=== PATIENT | male | born 1955 | race African-American/Black ===

== ENCOUNTER 2017-01-26 08:19 | Emergency (ER) | payer OTHER ==
[~2017-01-26] VITALS: Ht 177.8 cm; Wt 86.2 kg
[2017-01-26 08:28] VITALS: BP 155/101
--- NOTE | 2017-01-26 09:07 | PHYS DOC ---
Past Medical History Past Medical History: Hypertension Past Surgical History: No Surgical History Alcohol Use: Heavy Drug Use: Marijuana Adult General Chief Complaint Chief Complaint: LOWER EXT PAIN HPI HPI Patient is a 61 year old male with history of hypertension, smoking, who presents with mild posterior thigh pain for months, patient states the pain is intermittent worse on ambulation, he states the pain improves when he is not moving. Patient denies any known injury. Patient states he would like a note for work because he missed work today. Review of Systems Review of Systems Constitutional: Denies fever or chills [] Eyes: Denies change in visual acuity, redness, or eye pain [] HENT: Denies nasal congestion or sore throat [] Respiratory: Denies cough or shortness of breath [] Cardiovascular: No additional information not addressed in HPI [] GI: Denies abdominal pain, nausea, vomiting, bloody stools or diarrhea [] : Denies dysuria or hematuria [] Musculoskeletal: thigh pain bilaterally Integument: Denies rash or skin lesions [] Neurologic: Denies headache, focal weakness or sensory changes [] Endocrine: Denies polyuria or polydipsia [] Allergies Allergies Allergies Coded Allergies Type Severity Reaction Last Updated Verified No Known Drug Allergies 04/03/15 No Physical Exam Physical Exam Constitutional: Well developed, well nourished, no acute distress, non-toxic appearance. [] HENT: Normocephalic, atraumatic, bilateral external ears normal, oropharynx moist, no oral exudates, nose normal. [] Eyes: PERRLA, EOMI, conjunctiva normal, no discharge. [] Neck: Normal range of motion, no tenderness, supple, no stridor. [] Cardiovascular:Heart rate regular rhythm, no murmur [] Lungs & Thorax: Bilateral breath sounds clear to auscultation [] Abdomen: Bowel sounds normal, soft, no tenderness, no masses, no pulsatile masses. [] Skin: Warm, dry, no erythema, no rash. [] Back: No tenderness, no CVA tenderness. [] Extremities: No tenderness, no cyanosis, no clubbing, ROM intact, no edema. Negative Homans sign to bilateral lower extremities Neurologic: Alert and oriented X 3, normal motor function, normal sensory function, no focal deficits noted. [] Psychologic: Affect normal, judgement normal, mood normal. [] Current Patient Data Vital Signs Vital Signs Date Time Temp Pulse Resp B/P (MAP) Pulse Ox O2 Delivery O2 Flow Rate FiO2 01/26/17 08:28 98.5 77 18 98 Room Air 98.5 EKG EKG [] Radiology/Procedures Radiology/Procedures [] Course & Med Decision Making Course & Med Decision Making Pertinent Labs and Imaging studies reviewed. (See chart for details) Patient is in the ED with complaints of bilateral thigh pain worse on ambulation 4 months. Patient states the pain improves when he is not moving. Patient has history of smoking. He also has history of hypertension. Blood pressure was 155/101. He has not taken his medicine today. He does not have a PCP either. He is also requesting a note for work, which we provided. Patient's symptoms are consistent with peripheral vascular disease. I recommended following with a doctor from the list provided, we encouraged him to consider smoking cessation. He was discharged with Ultram and gabapentin. He was provided return precautions and discharged in stable condition. Dragon Disclaimer Dragon Disclaimer This electronic medical record was generated, in whole or in part, using a voice recognition dictation system. Departure Departure Impression: Primary Impression: High blood pressure Additional Impressions: Smoking addiction Peripheral vascular disease Disposition: HOME, SELF-CARE Condition: STABLE Referrals: UNKNOWN PCP NAME (PCP) follow with a doctor from the list provided as soon as you can Patient Instructions: Hypertension, Peripheral Vascular Disease Additional Instructions: You were seen for bilateral thigh pain suspicious of peripheral vascular disease. We highly recommend you follow-up with a doctor from the list provided or your own primary care doctor as soon as possible. Take the prescribed medicine as needed. Come back to the ED symptoms worsen. Scripts Gabapentin (GABAPENTIN) 300 Mg Capsule 300 MG PO TID, #30 CAP Prov: HERIBERTO HARE APRN 01/26/17 Tramadol Hcl (ULTRAM) 50 Mg Tablet 1 TAB PO Q6HRS, #30 TAB Prov: HERIBERTO HARE APRN 01/26/17 Problem Qualifiers Primary Impression: High blood pressure Hypertension type: unspecified Qualified Codes: I10 - Essential (primary) hypertension HERIBERTO HARE APRN Jan 26, 2017 09:07
[2017-01-26] MEDS ORDERED: GABA-586 PO (09:12)
[2017-01-26] MEDS ORDERED: TRAM-48 PO (09:12)
== END 2017-01-26 09:23 | disposition home or self-care (01) ==
LOC: ER 08:19
DX: I10 Essential (primary) hypertension (principal); F17.210 Nicotine dependence, cigarettes, uncomplicated; I73.9 Peripheral vascular disease, unspecified; F12.10 Cannabis abuse, uncomplicated
CPT/HCPCS: 99283

== ENCOUNTER → 2017-02-02 | Outpatient (CLI) | payer OTHER ==
[2017-01-26 08:28] VITALS: BP 155/101
[~2017-02-02] MED LIST: ALPR0.5T PO; CYCL10TA2 PO; DOXA4TAB3 PO; FLUO10CA13 PO; GABA-586 PO; HYDR-2758 PO; LISI40TA PO; METO100T2; OMEP20CA9; TRAM-48 PO
--- NOTE | 2017-02-02 15:52 | KCIC ---
INDICATION: Low back pain with radiculopathy. Stiffness and instability. TECHNIQUE: Sagittal T1, sagittal T2, sagittal STIR, axial T1, and axial T2 sequences are provided. No comparison is available. FINDINGS: There is no malalignment. There is fatty replacement of the endplates at several levels. There is no worrisome marrow lesion. There is disc desiccation greatest at T11-T12 and L4-L5. There is mild narrowing of disc height at L4-L5 and L5-S1. Conus medullaris is normal in signal intensity and in position. Subcutaneous edema is noted. The numbering system assumes 5 lumbar type vertebral bodies. Findings by individual level are as follows: T11-T12: Disc bulge and facet hypertrophy are noted with mild foraminal narrowing. T12-L1: There is facet hypertrophy without canal or foraminal compromise. L1-L2: This is the first level included entirely in the axial plane. There is a minimal disc bulge and facet hypertrophy without canal or foraminal compromise. L2-L3: There is a minimal disc bulge and mild facet and ligamentum flavum hypertrophy without canal or foraminal compromise. L3-L4: There is a mild disc bulge and moderate facet hypertrophy. There is also ligamentum flavum hypertrophy. There is minimal canal stenosis. There is [id number] bilateral foraminal narrowing. L4-L5: In addition to a diffuse disc bulge there is a right paracentral extrusion-type herniation minimally migrating superiorly measuring 12 mm craniocaudal, 9 mm transverse, and 4 mm AP. There is facet and ligamentum flavum hypertrophy. There is severe canal stenosis, midline AP diameter of the thecal sac narrowed to 4-5 mm. There is no CSF surrounding the nerve roots at this level. There is mild lateral recess narrowing. There is [id number] bilateral foraminal narrowing. L5-S1: Disc bulge and facet hypertrophy are noted with moderate foraminal narrowing. There is probably a synovial cyst on the right measuring 7 mm. IMPRESSION: Degenerative disc disease and facet and ligamentum flavum hypertrophy are greatest at L4-L5. Electronically signed by: Jas Liao MD (02/02/2017 3:49 PM) [facility]
== END | disposition home or self-care (01) ==
LOC: KCIC MRI 14:34
PROVIDERS: ATTEND Family Medicine
DX: M48.06 Spinal stenosis, lumbar region (principal); M51.16 Intervertebral disc disorders with radiculopathy, lumbar region; M24.28 Disorder of ligament, vertebrae; M53.86 Other specified dorsopathies, lumbar region
CPT/HCPCS: 72148

== ENCOUNTER → 2017-02-16 | Outpatient (CLI) | payer OTHER ==
[2017-01-26 08:28] VITALS: BP 155/101
[~2017-02-16] MED LIST changes: +AMLO5TAB2 PO
--- NOTE | 2017-02-16 20:45 | PAIN ---
DATE OF SERVICE: 02/16/2017 INITIAL CONSULTATION FOR PAIN CLINIC CHIEF COMPLAINT: Low back, bilateral lower extremity pain. HISTORY OF PRESENT ILLNESS: This is a 61-year-old male who presents with history of pain in the low back, bilateral lower extremities for several weeks, worse over the past 2 weeks, but then prior to 2 weeks, the pain began to resolve and completely dissipated ____ 2 days ago. The patient reports no specific treatment that he has done or other modalities. He has been trying to rest his back a bit and stay on his feet for some time and the pain has resolved completely. The patient reports 0 pain whatsoever today. The patient reports that 2 weeks ago; however, the pain was very significant and was radiating to both the posterior and lateral thighs, anterior thighs, posterior legs to the knees and sometimes in to the calf, but now is much better. The patient reports that occasionally in the morning, he still has a little bit of this pain over the past week, but it lasts only very briefly and then it is gone. The patient reports that he did get a steroid ____ from his primary care physician and this seems to have helped the pain significantly and this was about 2 weeks ago by his estimation. The patient reports otherwise no new motor or sensory deficits, no bowel or bladder incontinence or other complaints. When the pain was present, it was a significant radiating, dull, aching and shooting as well as some burning pain in the legs also. The patient did have an MRI scan of the lumbar spine dated 02/02/2017 showing degenerative disk disease and facet and ligamentum flavum hypertrophy, greatest at L4-L5 with a right paracentral extrusion type herniation, migrates superiorly measuring 12 x 9 x 4 mm and severe canal stenosis, again worse on the right than the left. PAST MEDICAL HISTORY: Significant for the hypertension, cigarette smoking, arthritis, gastritis, esophagitis and reflux. PAST SURGICAL HISTORY: No previous surgeries. CURRENT MEDICATIONS: Include doxazosin, lisinopril, Xanax, Prozac, hydrocodone, cyclobenzaprine, omeprazole, metoprolol and amlodipine. ALLERGIES: The patient has no known drug allergies. FAMILY HISTORY: Significant for no major medical problems or conditions that he is aware of. SOCIAL HISTORY: The patient drinks about 2 beers a day on average and smokes about half a pack of cigarettes per day as well and has been for about 20 years with no plans to quit at this time. 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 He is single and lives on his own. REVIEW OF SYSTEMS: The patient's review of systems is positive for those items mentioned in the history of present illness. All systems reviewed and otherwise negative. It is complete, full and well documented on the patient's chart. PHYSICAL EXAMINATION: VITAL SIGNS: The patient's blood pressure is 123/90, pulse is 69, respirations 18, temperature 98.5 degrees Fahrenheit. Height is 5 feet 11 inches and weighs 188 pounds. GENERAL: The patient is awake, alert, oriented, appropriate, very pleasant demeanor. HEENT: Head shows normocephalic, atraumatic. Extraocular movements are intact, symmetrical. Oral cavity, mucous membranes are moist and pink. Dentition is intact. NECK: Shows anterior throat is supple without palpable lymphadenopathy noted. Swallow reflex is symmetrical. CHEST: Shows normal on inspection. Breath sounds are clear to auscultation bilaterally. HEART: Shows S1 and S2 clear. No murmurs are auscultated. ABDOMEN: Soft, nontender, nondistended. No palpable organomegaly. No rebound or guarding demonstrated. BACK: The patient's back shows spine grossly in the midline with normal appearing thoracic kyphosis and lumbar lordotic curvatures. The patient's lumbar paraspinous muscle shows symmetrical with inspection and palpation shows some very mild tenderness to palpation bilaterally, but only with deeper palpation. Full rotational motion of the lumbar spine, both laterally greater than 10 degrees right and left as well as extension greater than 10 degrees, forward flexion 45 degrees without pain reported. No tenderness over the spinous processes, sacrum or sacroiliac regions. Lower extremities show deep tendon reflexes at 2+ in the patellar, 1+ tendo calcaneus tendons. Motor exam is strong with 5/5 dorsiflexion, extension, quadriceps and hamstring flexion and are equal. Peripheral pulses are 2+ posterior tibial and dorsalis pedis pulses. No peripheral edema is noted. No clubbing, no cyanosis. Lower extremities are warm and dry to touch, equal in color and appearance. Straight leg raising noted to be negative for any reproduction of radicular symptoms bilaterally as is Gaenslen's and Federico's maneuvers negative bilaterally as well. The patient is able to stand, stand on his toes without difficulty or loss of balance, able to heel toe walk without difficulty and walks with normal appearing gait, not using any assistive devices such as canes or walkers to ambulate. IMPRESSION: 1. This is a 61-year-old male with recent history of low back, bilateral lower extremity pain in a radicular fashion, now resolved over the past 2 weeks or so following a steroid taper pack. 2. MRI scan of lumbar spine as noted. 3. Hypertension. 4. Arthritis. 5. Cigarette smoking. PLAN: Options were discussed with the patient including conservative medical management, physical therapy and interventional techniques. We will hold on any interventions at this time. I have encouraged him to increase his activity as tolerated, also do some stretching and strengthening exercises, which we discussed to help with the back and core maneuvers as well and encouraged him to decrease or quit smoking as well. The patient will follow up on as needed basis at this time. Also discussed if the pain does return, to contact the office and we will schedule him back at that time. KVNG ALBRECHT MD DR: LANETTE/solitario JOB#: [id number] / [id number] AISHA Hernandez DO
== END | disposition home or self-care (01) ==
LOC: PNCL 13:08
PROVIDERS: ATTEND Anesthesiology
DX: M48.06 Spinal stenosis, lumbar region (principal); M79.662 Pain in left lower leg; M79.661 Pain in right lower leg; I10 Essential (primary) hypertension; F17.210 Nicotine dependence, cigarettes, uncomplicated
CPT/HCPCS: 99214

== ENCOUNTER → 2017-10-03 | Outpatient (CLI) | payer BC | END | disposition home or self-care (01) | LOC: US 14:51 | DX: M79.89 Other specified soft tissue disorders (principal) | CPT/HCPCS: 93971 ==

== ENCOUNTER 2020-01-01 15:07 | Inpatient (IN) | payer OTHER, SELFPAY ==
[~2020-01-01] VITALS: Ht 175.3 cm; Wt 82.3 kg
[~2020-01-01 15:07] MED LIST changes: +AMLO5TAB10 PO; -AMLO5TAB2 PO; +Folic Acid PO; -GABA-586 PO; +GABA300C18 PO; -HYDR-2758 PO; +HYDR-2761 PO; +LISI-130 PO; -LISI40TA PO; -METO100T2; +METO100T7; +METO100T7 PO; +MULT1TAB90 PO; +OMEP20CA16; -OMEP20CA9
[2020-01-01] MEDS ORDERED: IV NORMAL SALINE 1000ML BAG 1,000 ML IV SCH (15:18)
--- NOTE | 2020-01-01 15:42 | PHYS DOC ---
Past Medical History Past Medical History: Hypertension Past Surgical History: No Surgical History Smoking Status: Current Every Day Smoker Alcohol Use: Heavy Drug Use: Marijuana General Adult EDM: Chief Complaint: SHORTNESS OF BREATH HPI: HPI: Patient is a 64 year old male who presents with sent over by [facility] with a increased shortness of breath, body aches, diaphoretic and fever that is increased over the last 2 weeks. The nurse practitioner Pilar also told me that he had a low blood pressure in the 80s and had a near syncopal episode in the clinic today. Patient does have a history of alcohol abuse but states that he has not had any alcohol for the last 3 days. Patient states that he is nauseated at times and will heaves but nothing comes up. He is ambulatory with a steady gait. No respiratory distress. Patient states that he has no chest pain and at this time has no shortness of breath. He is afebrile here in the ED. Patient is other history is he is a smoker and has hypertension. Patient denies chest pain, abdominal pain, vomiting, diarrhea, cough, dizziness, headache, vision changes, numbness or tingling, LOC, focal weakness. Review of Systems: Review of Systems: Constitutional: fever or chills. [] Eyes: Denies change in visual acuity. [] HENT: Denies nasal congestion or sore throat. [] Respiratory: Denies cough. +shortness of breath. [] Cardiovascular: Denies chest pain or edema. [] GI: Denies abdominal pain. + nausea, denies vomiting, bloody stools or diarrhea. [] : Denies dysuria. [] Musculoskeletal: Denies back pain or joint pain. Generalized body aches [] Integument: Denies rash. [] Neurologic: Denies headache, focal weakness or sensory changes. Near syncopal episode today [] Endocrine: Denies polyuria or polydipsia. [] Lymphatic: Denies swollen glands. [] Psychiatric: Denies depression or anxiety. [] Heart Score: HEART Score for Chest Pain: HEART Score for Chest Pain Response (Comments) Value History Slighlty/Non-Suspicious 0 ECG Normal 0 Age >45 - < 65 1 Risk Factors 1 or 2 Risk Factors 1 Troponin < Normal Limit 0 Total 2 Risk Factors: Risk Factors: DM, Current or recent (<one month) smoker, HTN, HLP, family hi story of CAD, obesity. Risk Scores: Score 0 - 3: 2.5% MACE over next 6 weeks - Discharge Home Score 4 - 6: 20.3% MACE over next 6 weeks - Admit for Clinical Observation Score 7 - 10: 72.7% MACE over next 6 weeks - Early Invasive Strategies Current Medications: Current Medications Medications (Trade) Dose Ordered Sig/Rosa Maria Start Time Stop Time Status Last Admin Dose Admin Sodium Chloride 1,000 ml @ 1,000 mls/hr Q1H 01/01/20 15:18 01/01/20 16:17 Allergies: Allergies: Allergies Coded Allergies Type Severity Reaction Last Updated Verified No Known Drug Allergies 04/03/15 No Physical Exam: PE: Constitutional: Well developed, well nourished, no acute distress, non-toxic appearance. [] HENT: Normocephalic, atraumatic, bilateral external ears normal, oropharynx moist, no oral exudates, nose normal. [] Eyes: PERRLA, EOMI, conjunctiva normal, no discharge. [] Neck: Normal range of motion, no tenderness, supple, no stridor. [] Cardiovascular:Heart rate regular rhythm, no murmur [] Lungs & Thorax: Bilateral breath sounds clear to auscultation [] Abdomen: Bowel sounds normal, soft, no tenderness, no masses, no pulsatile masses. [] Skin: Warm, dry, no erythema, no rash. [] Back: No tenderness, no CVA tenderness. [] Extremities: No tenderness, no cyanosis, no clubbing, ROM intact, no edema. [] Neurologic: Alert and oriented X 3, normal motor function, normal sensory function, no focal deficits noted. [] Psychologic: Affect normal, judgement normal, mood normal. [] EKG: EK and read by Dr Peters as Sinus Tach and no STEMI[] Radiology/Procedures: Radiology/Procedures: [] Impression: [facility] [address] [place] [address] IMAGING REPORT Signed PATIENT: ANNALISA SANCHEZ ACCOUNT: [id number] : 1955 LOCATION: ER AGE: 64 SEX: M EXAM STATUS: REG ER ORD. PHYSICIAN: RHEA HOWE APRN REASON: SOA 20 labs 3:40 PROCEDURE: PORTABLE CHEST 1V PORTABLE CHEST 1V Clinical Indication: Reason: SOA Comparison: AP chest, October 04, 2019. Findings: The cardiomediastinal silhouette is normal. Lungs are clear. There is no pneumothorax. No pleural effusion is appreciated. No acute bone abnormality. Bilateral AC arthropathy. IMPRESSION: No acute cardiopulmonary process. Electronically signed by: Sharath Moralez MD (01/01/2020 4:26 PM) [facility] DICTATED and SIGNED BY: SHARATH MORALEZ MD DATE: 01/01/20 1626 [facility] [address] [place] [address] IMAGING REPORT Signed PATIENT: ANNALISA SANCHEZ ACCOUNT: [id number] : 1955 LOCATION: ER AGE: 64 SEX: M EXAM STATUS: REG ER ORD. PHYSICIAN: RHEA HOWE APRN REASON: nausea, fever, ELEVATED LFTs PROCEDURE: CT ABDOMEN PELVIS WO CONTRAST Exam: CT of abdomen and pelvis without contrast INDICATION: Nausea, fever, elevated LFTs TECHNIQUE: Sequential axial images through the abdomen and pelvis obtained without IV contrast. Sagittal and coronal reformatted images were reconstructed from the axial data and reviewed. Comparisons: None FINDINGS: Heart size is normal. No pericardial effusion. Visualized lung bases are clear. No pleural effusion. Evaluation of the solid organs is limited secondary to noncontrast technique. Diffuse hepatic steatosis. Spleen, pancreas, gallbladder and adrenals are unremarkable. No perinephric inflammation or hydronephrosis. No renal or ureteral calculi are identified. Bladder is decompressed not well evaluated. Prostate is not enlarged. Large and small bowel are unremarkable. Appendix is not definitively identified. No free intra-abdominal air or fluid. No obstruction. Abdominal aorta has a normal course and caliber. No enlarged abdominal lymph nodes are identified. No suspicious osseous lesions or acute fractures. IMPRESSION: 1. Diffuse hepatic steatosis. 2. Otherwise, no acute process identified within the abdomen or pelvis. Exposure: One or more of the following in the visualized dose reduction techniques were utilized for this examination: 1. Automated exposure control 2. Adjustment of the MA and/or KV according to patient size 3. Use of iterative of reconstructive technique Electronically signed by: Nikia Turpin MD (01/01/2020 6:57 PM) [id number] DICTATED and SIGNED BY: NIKIA TURPIN MD DATE: 01/01/20 1857 Course & Med Decision Making: Course & Med Decision Making Pertinent Labs and Imaging studies reviewed. (See chart for details) COVID-19 CRITERIA: The patient was evaluated during the global COVID-19 pandemic, and that diagnosis was suspected/considered upon their initial presentation. Their evaluation, treatment and testing was consistent with current guidelines for patients who present with complaints or symptoms that may be related to COVID-19. Lungs are clear in upper lobes but diminished in lower lobes. Alert and oriented. Speaks in full complete sentences. Ambulatory with a steady gait. No extremity edema. Abdomen is soft and nontender. Patient denies any pain at this time. See HPI. No tremors or signs of withdrawl. Patient's orthostatics are as follows: Lying 120/67, 96; sitting 106/55, 104; standing 78/48, 101. After 1L NS given patient blood pressures are: Lying 121/86, 96; sitting 110/75, 103; standing 89/61, 116. Another liter of normal saline is ordered. CT abdomen pelvis and chest x-ray show no acute findings. Patient's liver enzymes are elevated. Patient admitted by Dr. Sahni for orthostatic hypotension. [] Mckayla Disclaimer: Mckayla Disclaimer: This electronic medical record was generated, in whole or in part, using a voice recognition dictation system. COVID-19 Patient Risks: Age 65 or older: No Sign of co-morbidity: Yes Exp to person + for COVID: No Exp to PUI: No Travel from affected area: No Lower respiratory symptoms: Yes Fever: Yes Other: No PPE Use: Full PPE with N95 mask or PAPR: Yes Departure Departure Impression: Primary Impression: Orthostatic hypotension Additional Impression: Person under investigation for COVID-19 Disposition: ADMITTED INPATIENT Admitting Physician: HARJINDER Condition: STABLE Referrals: AISHA VASQUEZ DO (PCP) Justicifation of Admission Dx: Justifications for Admission: Justification of Admission Dx: Yes Comments: Orthostatic Hypotension RHEA HOWE LABORATORY DEVELOPMENT TECHNICIAN Jan 01, 2020 15:42
--- NOTE | 2020-01-01 15:58 | EKG ---
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
[2020-01-01 16:10] LABS: BASE EXCESS COOX 0 mmol/L (-3-3); HCO3 COOX 21 mmol/L (21-28); METHEMOGLOBIN 0.4 % (0.0-1.9); OXYHEMOGLOBIN 94.1 %; PCO2 COOX 26 mmHg (35-46); PO2 COOX 70 mmHg (65-108); SAT O2 COOX 95 % (92-99)
[2020-01-01 16:15] LABS: BASO % 1 % (0-3); EOS % 0 % (0-3); HEMATOCRIT 38.2 % (39.0-53.0); HEMOGLOBIN 13.4 g/dL (13.0-17.5); LYMPH # 0.6 x10^3/uL (1.0-4.8); LYMPH % 18 % (24-48); MEAN CORPUSCULAR HEMOGLOBIN 30 pg (25-35); MEAN CORPUSCULAR HGB CONC 35 g/dL (31-37); MEAN CORPUSCULAR VOLUME 86 fL (79-100); MONO # 0.4 x10^3/uL (0.0-1.1); MONO % 12 % (0-9); NEUT # 2.2 x10^3/uL (1.8-7.7); NEUT % 69 % (31-73); PLATELET COUNT 64 x10^3/uL (140-400); RED BLOOD COUNT 4.42 x10^6/uL (4.30-5.70); RED CELL DISTRIBUTION WIDTH 13.1 % (11.5-14.5); WHITE BLOOD COUNT 3.2 x10^3/uL (4.0-11.0)
[2020-01-01 16:28] LABS: CALCIUM 8.3 mg/dL (8.5-10.1); CREATININE 1.6 mg/dL (0.7-1.3); GFR 53.3; POTASSIUM 3.5 mmol/L (3.5-5.1)
--- NOTE | 2020-01-01 16:29 | RAD ---
PORTABLE CHEST 1V Clinical Indication: Reason: SOA Comparison: AP chest, October 04, 2019. Findings: The cardiomediastinal silhouette is normal. Lungs are clear. There is no pneumothorax. No pleural effusion is appreciated. No acute bone abnormality. Bilateral AC arthropathy. IMPRESSION: No acute cardiopulmonary process. Electronically signed by: Sharath Moralez MD (01/01/2020 4:26 PM) [facility]
[2020-01-01] MEDS ORDERED: IV NORMAL SALINE 1000ML BAG 1,000 ML IV ONE ×2 (16:30→18:30)
[2020-01-01 16:33] LABS: ALBUMIN 3.6 g/dL (3.4-5.0); ALBUMIN/GLOBULIN RATIO 0.9 (1.0-1.7); TOTAL BILIRUBIN 1.3 mg/dL (0.2-1.0); TOTAL PROTEIN 7.8 g/dL (6.4-8.2)
[2020-01-01 16:54] LABS: PLT ESTIMATE DECREASED (ADEQUATE)
[2020-01-01 18:07] LABS: BILIRUBIN,URINE SMALL (NEG); CLARITY,URINE TURBID; COLOR,URINE ORANGE; NITRITE,URINE NEGATIVE (NEG); PROTEIN,URINE 100 mg/dL (NEG-TRACE)
[2020-01-01 18:11] LABS: AMPHETAMINE/METHAMPHETAMINE NEG (NEG); BARBITURATES NEG (NEG); BENZODIAZEPINES NEG (NEG); CANNABINOIDS NEG (NEG); COCAINE NEG (NEG); METHADONE NEG (NEG); OPIATES NEG (NEG); PHENCYCLIDINE NEG (NEG)
[2020-01-01 18:12] LABS: BACTERIA,URINE FEW /HPF (0-FEW); RBC,URINE 0 /HPF (0-2)
[2020-01-01 18:13] LABS: HYALINE CASTS, URINE MANY /HPF; SQUAMOUS EPITHELIAL CELL,UR MOD /LPF
--- NOTE | 2020-01-01 19:00 | RAD ---
Exam: CT of abdomen and pelvis without contrast INDICATION: Nausea, fever, elevated LFTs TECHNIQUE: Sequential axial images through the abdomen and pelvis obtained without IV contrast. Sagittal and coronal reformatted images were reconstructed from the axial data and reviewed. Comparisons: None FINDINGS: Heart size is normal. No pericardial effusion. Visualized lung bases are clear. No pleural effusion. Evaluation of the solid organs is limited secondary to noncontrast technique. Diffuse hepatic steatosis. Spleen, pancreas, gallbladder and adrenals are unremarkable. No perinephric inflammation or hydronephrosis. No renal or ureteral calculi are identified. Bladder is decompressed not well evaluated. Prostate is not enlarged. Large and small bowel are unremarkable. Appendix is not definitively identified. No free intra-abdominal air or fluid. No obstruction. Abdominal aorta has a normal course and caliber. No enlarged abdominal lymph nodes are identified. No suspicious osseous lesions or acute fractures. IMPRESSION: 1. Diffuse hepatic steatosis. 2. Otherwise, no acute process identified within the abdomen or pelvis. Exposure: One or more of the following in the visualized dose reduction techniques were utilized for this examination: 1. Automated exposure control 2. Adjustment of the MA and/or KV according to patient size 3. Use of iterative of reconstructive technique Electronically signed by: Nikia Natarajan MD (01/01/2020 6:57 PM) [id number]
[2020-01-01] MEDS ORDERED: ONDANSETRON PF 4 MG/2 ML VIAL. IV PRN (19:30)
[2020-01-01] MEDS ORDERED: ACETAMINOPHEN 325 MG TABLET. PO PRN (19:30)
--- NOTE | 2020-01-01 19:45 | PDOC1 ---
History and Physical Date of Admission Date of Admission DATE: 01/01/20 TIME: 19:39 Source Source: Chart review, Patient History of Present Illness History of Present Illness Mr. Romano, is a 64 year old male sent by primary care at [facility] with a increased shortness of breath, body aches, diaphoretic and fever. he has marked symptoms for 3 days, but he reports not feeling well for 2 weeks. but he stopped drinking his normal pint of gin daily as he did not feel well, likely limited PO intake. noted nausea without vomiting At primary care, noted low blood pressure in the 80s and had a near syncopal episode in the clinic. p. He is ambulatory with a steady gait. No respiratory distress. Patient states that he has no chest pain and at this time has no shortness of breath. 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 Past Medical History Cardiovascular: HTN Hepatobiliary: No pertinent hx Psych: No pertinent hx Musculoskeletal: low back pain, Osteoarthritis (marked left 3rd finger change, ) Endocrine: No pertinent hx Dermatology: No pertinent hx Past Surgical History Past Surgical History: Other Family History Family History: High Cholestrol, Hypertension Social History Smoke: No ALCOHOL: heavy Drugs: None Current Problem List Problem List Problems Medical Problems: (1) Orthostatic hypotension Status: Acute (2) Person under investigation for COVID-19 Status: Acute Current Medications Current Medications Current Medications Sodium Chloride 1,000 ml @ 1,000 mls/hr Q1H IV Last administered on 01/01/20at 15:59; Start 01/01/20 at 15:18; Stop 01/01/20 at 16:17; Status DC Sodium Chloride 1,000 ml @ 1,000 mls/hr 1X ONCE IV Last administered on 01/01/20at 15:59; Start 01/01/20 at 16:30; Stop 01/01/20 at 17:29; Status DC Sodium Chloride 1,000 ml @ 1,000 mls/hr 1X ONCE IV Last administered on 01/01/20at 18:52; Start 01/01/20 at 18:30; Stop 01/01/20 at 19:29; Status DC Ondansetron HCl (Zofran) 4 mg PRN Q8HRS PRN IV NAUSEA/VOMITING; Start 01/01/20 at 19:30; Stop 01/02/20 at 19:29 Acetaminophen (Tylenol) 650 mg PRN Q4HRS PRN PO FEVER > 100.3'F; Start 01/01/20 at 19:30; Stop 01/02/20 at 19:29 Doxazosin Mesylate (Cardura) 4 mg DAILY PO ; Start 01/02/20 at 09:00; Status UNV Multivitamins (Thera M Plus) 1 tab DAILY PO ; Start 01/02/20 at 09:00; Status UNV Non-Formulary Medication (Metoprolol Tartrate ) 1 tab BID PO ; Start 01/01/20 at 21:00; Status UNV Non-Formulary Medication ([Folic Acid] ) 1 mg DAILY PO ; Start 01/02/20 at 09:00; Status UNV Enoxaparin Sodium (Lovenox Per Pharmacy Prophylaxis Dosing) 1 each PRN DAILY PRN MC SEE COMMENTS; Start 01/01/20 at 19:45; Status UNV Active Scripts Active [Folic Acid] 1 MG Tablet 1 Mg PO DAILY 30 Days Thera-M Tablet (Multivits,Ca,Minerals/Iron/Fa) 1 Each Tablet 1 Tab PO DAILY 30 Days Reported Metoprolol Tartrate 100 Mg Tablet 1 Tab PO BID Amlodipine Besylate 5 Mg Tablet 5 Mg PO DAILY Doxazosin Mesylate 4 Mg Tablet 1 Tab PO DAILY Lisinopril 40 Mg Tablet 1 Tab PO DAILY Allergies Allergies: Coded Allergies: No Known Drug Allergies (Unverified , 04/03/15) ROS Review of System no chest pain, abdominal pain, vomiting, diarrhea, cough, dizziness, headache, vision changes, numbness or tingling, LOC, focal weakness. General: YES: Fatigue, Malaise, Appetite; No: Chills, Night Sweats, Other PSYCHOLOGICAL ROS: YES: Sleep disturbances; No: Anxiety, Behavioral Disorder, Concentration difficultie, Decreased libido, Depression, Disorientation, Hallucinations, Hostility, Irritablity, Memory difficulties, Mood Swings, Obsessive thoughts, Physical abuse, Sexual abuse, Suicidal ideation, Other Eyes: No Blurry vision, No Decreased vision, No Double vision, No Dry eyes, No Excessive tearing, No Eye Pain, No Itchy Eyes, No Loss of vision, No Photophobia, No Scotomata, No Uses contacts, No Uses glasses, No Other HEENT: No: Heacaches, Visual Changes, Hearing change, Nasal congestion, Nasal discharge, Oral lesions, Sinus pain, Sore Throat, Epistaxis, Sneezing, Snoring, Tinnitus, Vertigo, Vocal changes, Other Respiratory: YES: Shortness of breath, SOB with excertion, Tachypnea; No: Cough, Hemoptysis, Orthopnea, Pleuritic Pain, Sputum Changes, Stridor, Wheezing, Other Cardiovascular: No Chest Pain, No Palpitations, No Orthopnea, No Paroxysmal Noc. Dyspnea, No Edema, No Lt Headedness, No Other Gastrointestinal: Yes Nausea Genitourinary: No Dysuria, No Frequency, No Incontinence, No Hematuria, No Retention, No Discharge, No Urgency, No Pain, No Flank Pain, No Other, No , No , No , No , No , No , No Musculoskeletal: No Gait Disturbance, No Joint Pain, No Joint Stiffness, No Joint Swelling, No Muscle Pain, No Muscular Weakness, No Pain In:, No Swelling In:, No Other Neurological: No Behavorial Changes, No Bowel/Bladder ControlChng, No Confusion , No Dizziness, No Gait Disturbance, No Headaches, No Impaired Coord/balance, No Memory Loss, No Numbness/Tingling, No Seizures, No Speech Problems, No Tremors, No Visual Changes, No Weakness, No Other Skin: No Dry Skin, No Eczema, No Hair Changes, No Lumps, No Mole Changes, No Mottling, No Nail Changes, No Pruritus, No Rash, No Skin Lesion Changes, No Other, No Acne Physical Exam General: Alert, mild distress HEENT: Atraumatic, PERRLA, EOMI Lungs: Clear to auscultation Heart: S1S2, no murmurs Abdomen: Normal bowel sounds, Soft Extremities: No edema Skin: No rashes, No breakdown Neuro: Normal speech, Normal tone, Sensation intact Psych/Mental Status: Mental status NL, Mood NL Vitals Vitals Vital Signs Date Time Temp Pulse Resp B/P (MAP) Pulse Ox O2 Delivery O2 Flow Rate FiO2 01/01/20 18:21 100 20 120/77 (91) 100 Room Air 01/01/20 15:25 98.6 98.6 Labs Labs Laboratory Tests Test 01/01/20 15:55 01/01/20 16:05 01/01/20 18:00 White Blood Count 3.2 x10^3/uL (4.0-11.0) Red Blood Count 4.42 x10^6/uL (4.30-5.70) Hemoglobin 13.4 g/dL (13.0-17.5) Hematocrit 38.2 % (39.0-53.0) Mean Corpuscular Volume 86 fL (79-100) Mean Corpuscular Hemoglobin 30 pg (25-35) Mean Corpuscular Hemoglobin Concent 35 g/dL (31-37) Red Cell Distribution Width 13.1 % (11.5-14.5) Platelet Count 64 x10^3/uL (140-400) Neutrophils (%) (Auto) 69 % (31-73) Lymphocytes (%) (Auto) 18 % (24-48) Monocytes (%) (Auto) 12 % (0-9) Eosinophils (%) (Auto) 0 % (0-3) Basophils (%) (Auto) 1 % (0-3) Neutrophils # (Auto) 2.2 x10^3/uL (1.8-7.7) Lymphocytes # (Auto) 0.6 x10^3/uL (1.0-4.8) Monocytes # (Auto) 0.4 x10^3/uL (0.0-1.1) Eosinophils # (Auto) 0.0 x10^3/uL (0.0-0.7) Basophils # (Auto) 0.0 x10^3/uL (0.0-0.2) Platelet Estimate Decreased (ADEQUATE) Sodium Level 131 mmol/L (136-145) Potassium Level 3.5 mmol/L (3.5-5.1) Chloride Level 93 mmol/L (98-107) Carbon Dioxide Level 23 mmol/L (21-32) Anion Gap 15 (6-14) Blood Urea Nitrogen 8 mg/dL (8-26) Creatinine 1.6 mg/dL (0.7-1.3) Estimated GFR (Cockcroft-Gault) 53.3 BUN/Creatinine Ratio 5 (6-20) Glucose Level 168 mg/dL (70-99) Lactic Acid Level 2.2 mmol/L (0.4-2.0) Calcium Level 8.3 mg/dL (8.5-10.1) Total Bilirubin 1.3 mg/dL (0.2-1.0) Aspartate Amino Transf (AST/SGOT) 204 U/L (15-37) Alanine Aminotransferase (ALT/SGPT) 131 U/L (16-63) Alkaline Phosphatase 133 U/L (46-116) Troponin I Quantitative < 0.017 ng/mL (0.000-0.055) RM-Apu-T-Type Natriuretic Peptide 174 pg/mL (0-124) Total Protein 7.8 g/dL (6.4-8.2) Albumin 3.6 g/dL (3.4-5.0) Albumin/Globulin Ratio 0.9 (1.0-1.7) Lipase 381 U/L (73-393) Ethyl Alcohol Level < 10 mg/dL (0-10) O2 Saturation 95 % (92-99) Arterial Blood pH 7.53 (7.35-7.45) Arterial Blood pCO2 at Patient Temp 26 mmHg (35-46) Arterial Blood pO2 at Patient Temp 70 mmHg (65-108) Arterial Blood HCO3 21 mmol/L (21-28) Arterial Blood Base Excess 0 mmol/L (-3-3) Oxyhemoglobin 94.1 % Methemoglobin 0.4 % (0.0-1.9) Carbon Monoxide, Quantitative 0.3 % (0.0-1.9) FiO2 Room air Urine Collection Type U cath Urine Color [place] Urine Clarity Turbid Urine pH 6.0 (<5.0-8.0) Urine Specific [place] 1.025 (1.000-1.030) Urine Protein 100 mg/dL (NEG-TRACE) Urine Glucose (UA) 100 mg/dL (NEG) Urine Ketones (Stick) 15 mg/dL (NEG) Urine Blood Negative (NEG) Urine Nitrite Negative (NEG) Urine Bilirubin Small (NEG) Urine Urobilinogen Dipstick 1.0 mg/dL (0.2 mg/dL) Urine Leukocyte Esterase Small (NEG) Urine RBC 0 /HPF (0-2) Urine WBC 11-20 /HPF (0-4) Urine Squamous Epithelial Cells Mod /LPF Urine Bacteria Few /HPF (0-FEW) Urine Hyaline Casts Many /HPF Urine Mucus Slight /LPF Urine Opiates Screen Neg (NEG) Urine Methadone Screen Neg (NEG) Urine Barbiturates Neg (NEG) Urine Phencyclidine Screen Neg (NEG) Urine Amphetamine/Methamphetamine Neg (NEG) Urine Benzodiazepines Screen Neg (NEG) Urine Cocaine Screen Neg (NEG) Urine Cannabinoids Screen Neg (NEG) Urine Ethyl Alcohol Neg (NEG) Laboratory Tests Test 01/01/20 15:55 01/01/20 16:05 01/01/20 18:00 White Blood Count 3.2 x10^3/uL (4.0-11.0) Red Blood Count 4.42 x10^6/uL (4.30-5.70) Hemoglobin 13.4 g/dL (13.0-17.5) Hematocrit 38.2 % (39.0-53.0) Mean Corpuscular Volume 86 fL (79-100) Mean Corpuscular Hemoglobin 30 pg (25-35) Mean Corpuscular Hemoglobin Concent 35 g/dL (31-37) Red Cell Distribution Width 13.1 % (11.5-14.5) Platelet Count 64 x10^3/uL (140-400) Neutrophils (%) (Auto) 69 % (31-73) Lymphocytes (%) (Auto) 18 % (24-48) Monocytes (%) (Auto) 12 % (0-9) Eosinophils (%) (Auto) 0 % (0-3) Basophils (%) (Auto) 1 % (0-3) Neutrophils # (Auto) 2.2 x10^3/uL (1.8-7.7) Lymphocytes # (Auto) 0.6 x10^3/uL (1.0-4.8) Monocytes # (Auto) 0.4 x10^3/uL (0.0-1.1) Eosinophils # (Auto) 0.0 x10^3/uL (0.0-0.7) Basophils # (Auto) 0.0 x10^3/uL (0.0-0.2) Platelet Estimate Decreased (ADEQUATE) Sodium Level 131 mmol/L (136-145) Potassium Level 3.5 mmol/L (3.5-5.1) Chloride Level 93 mmol/L (98-107) Carbon Dioxide Level 23 mmol/L (21-32) Anion Gap 15 (6-14) Blood Urea Nitrogen 8 mg/dL (8-26) Creatinine 1.6 mg/dL (0.7-1.3) Estimated GFR (Cockcroft-Gault) 53.3 BUN/Creatinine Ratio 5 (6-20) Glucose Level 168 mg/dL (70-99) Lactic Acid Level 2.2 mmol/L (0.4-2.0) Calcium Level 8.3 mg/dL (8.5-10.1) Total Bilirubin 1.3 mg/dL (0.2-1.0) Aspartate Amino Transf (AST/SGOT) 204 U/L (15-37) Alanine Aminotransferase (ALT/SGPT) 131 U/L (16-63) Alkaline Phosphatase 133 U/L (46-116) Troponin I Quantitative < 0.017 ng/mL (0.000-0.055) JS-Rhw-U-Type Natriuretic Peptide 174 pg/mL (0-124) Total Protein 7.8 g/dL (6.4-8.2) Albumin 3.6 g/dL (3.4-5.0) Albumin/Globulin Ratio 0.9 (1.0-1.7) Lipase 381 U/L (73-393) Ethyl Alcohol Level < 10 mg/dL (0-10) O2 Saturation 95 % (92-99) Arterial Blood pH 7.53 (7.35-7.45) Arterial Blood pCO2 at Patient Temp 26 mmHg (35-46) Arterial Blood pO2 at Patient Temp 70 mmHg (65-108) Arterial Blood HCO3 21 mmol/L (21-28) Arterial Blood Base Excess 0 mmol/L (-3-3) Oxyhemoglobin 94.1 % Methemoglobin 0.4 % (0.0-1.9) Carbon Monoxide, Quantitative 0.3 % (0.0-1.9) FiO2 Room air Urine Collection Type U cath Urine Color [place] Urine Clarity Turbid Urine pH 6.0 (<5.0-8.0) Urine Specific [place] 1.025 (1.000-1.030) Urine Protein 100 mg/dL (NEG-TRACE) Urine Glucose (UA) 100 mg/dL (NEG) Urine Ketones (Stick) 15 mg/dL (NEG) Urine Blood Negative (NEG) Urine Nitrite Negative (NEG) Urine Bilirubin Small (NEG) Urine Urobilinogen Dipstick 1.0 mg/dL (0.2 mg/dL) Urine Leukocyte Esterase Small (NEG) Urine RBC 0 /HPF (0-2) Urine WBC 11-20 /HPF (0-4) Urine Squamous Epithelial Cells Mod /LPF Urine Bacteria Few /HPF (0-FEW) Urine Hyaline Casts Many /HPF Urine Mucus Slight /LPF Urine Opiates Screen Neg (NEG) Urine Methadone Screen Neg (NEG) Urine Barbiturates Neg (NEG) Urine Phencyclidine Screen Neg (NEG) Urine Amphetamine/Methamphetamine Neg (NEG) Urine Benzodiazepines Screen Neg (NEG) Urine Cocaine Screen Neg (NEG) Urine Cannabinoids Screen Neg (NEG) Urine Ethyl Alcohol Neg (NEG) VTE Prophylaxis Ordered VTE Prophylaxis Devices: No VTE Pharmacological Prophylaxi: Yes Assessment/Plan Assessment/Plan acute renal failure, vasomotor nephropathy transaminitis, overuse of alcohol, stopped 3 days ago when he started feeling poolry orthostatic hypotension, dry, dehydrated htn, chronic diastolic CHF BPH dyspnea, weakness, r/o COVID-19, pt seen in isolation, will eval Justicifation of Admission Dx: Justifications for Admission: Justification of Admission Dx: Yes ABHIJEET ZHU MD Jan 01, 2020 19:45
[2020-01-01 21:10] VITALS: BP 145/92
[2020-01-01 21:15] VITALS: BP 157/108
[2020-01-01 21:20] VITALS: BP 140/91
[2020-01-01] MEDS ORDERED: ZOLPIDEM 5 MG TABLET. PO PRN (21:45)
[2020-01-01] MEDS: ENOXAPARIN 40 MG/0.4 ML SYRINGE. SQ SCH (21:57)
[2020-01-01] MEDS: METOPROLOL TART IMMED RELEASE 50 MG TABLET. PO SCH (21:58)
--- NOTE | 2020-01-01 22:00 | NUR ---
Patient admitted to room 116 at [facility] – [place], [place]. Pt ambulatory to bed, placed on monitor. Pt feels slight nausea and admit temp is 100.7. Orthos taken and document in VS, did not have much variation. Patient has had a recent decrease in appetite. Called Dr. Sahni, notified of fever and decrease intake orders received for fluids and tylenol- no abx at this time. Also reported set of orthos, ok to give scheduled metoprolol. Patient says he has had on and off diarrhea, will monitor for further occurrences. Patient resting comfortable in bed at this time.
[2020-01-01] MEDS: IV NORMAL SALINE 1000ML BAG 1,000 ML IV SCH (22:04)
[2020-01-01 23:00] VITALS: BP 132/82
[2020-01-02 04:00] VITALS: BP 137/93
[2020-01-02 04:25] LABS: BASO % 1 % (0-3); EOS % 0 % (0-3); HEMATOCRIT 34.6 % (39.0-53.0); HEMOGLOBIN 11.9 g/dL (13.0-17.5); LYMPH # 0.8 x10^3/uL (1.0-4.8); LYMPH % 34 % (24-48); MEAN CORPUSCULAR HEMOGLOBIN 30 pg (25-35); MEAN CORPUSCULAR HGB CONC 34 g/dL (31-37); MEAN CORPUSCULAR VOLUME 86 fL (79-100); MONO # 0.3 x10^3/uL (0.0-1.1); MONO % 14 % (0-9); NEUT # 1.2 x10^3/uL (1.8-7.7); NEUT % 51 % (31-73); PLATELET COUNT 55 x10^3/uL (140-400); RED BLOOD COUNT 4.01 x10^6/uL (4.30-5.70); RED CELL DISTRIBUTION WIDTH 13.6 % (11.5-14.5); WHITE BLOOD COUNT 2.4 x10^3/uL (4.0-11.0)
[2020-01-02 04:47] LABS: ALBUMIN/GLOBULIN RATIO 0.8 (1.0-1.7); CALCIUM 7.3 mg/dL (8.5-10.1); GFR 91.6; TOTAL BILIRUBIN 0.9 mg/dL (0.2-1.0); TOTAL PROTEIN 6.6 g/dL (6.4-8.2)
[2020-01-02 04:56] LABS: POTASSIUM 2.9 mmol/L (3.5-5.1)
[2020-01-02] MEDS ORDERED: POTASSIUM CHLORIDE 20 MEQ TABLET.ER. PO ONE ×2 (05:30→11:00)
[2020-01-02] MEDS: MULTIVIT INFUSN,ADULT 4,VIT K 10 ML, THIAMINE INJ 100 MG, FOLIC ACID INJ 1 MG in IV NOR... IV SCH (07:57)
[2020-01-02 08:00] VITALS: BP 133/84
[2020-01-02] MEDS: IV NORMAL SALINE 1000ML BAG 1,000 ML IV SCH ×2 (08:00→17:44)
--- NOTE | 2020-01-02 10:26 | NUR ---
SS following for discharge planning. SS reviewed pt chart and discussed with pt RN. Pt is from home and is currently on room air. Pt COVID19 test pending. Pt is self pay. Pt requesting to discharge to home. SS will continue to follow for discharge planning.
[2020-01-02] MEDS: METOPROLOL TART IMMED RELEASE 50 MG TABLET. PO SCH ×2 (10:42→20:43)
[2020-01-02] MEDS: DOXAZOSIN MESYLATE 4 MG TABLET. PO SCH (10:43)
[2020-01-02] MEDS ORDERED: MAGNESIUM SULFATE 4GM 100 ML IV ONE (11:00)
[2020-01-02] MEDS ORDERED: IV NORMAL SALINE 1000ML BAG 1,000 ML IV ONE (11:00)
[2020-01-02 12:00] VITALS: BP 118/74
[2020-01-02 15:20] VITALS: BP 112/73
--- NOTE | 2020-01-02 15:48 | PDOC ---
PROGRESS NOTES Chief Complaint Chief Complaint acute renal failure, vasomotor nephropathy transaminitis, overuse of alcohol, stopped 3 days ago when he started feeling poolry orthostatic hypotension, dry, dehydrated htn, chronic diastolic CHF BPH dyspnea, weakness, diarrhea, poss infectious, would be sepsis, History of Present Illness History of Present Illness consult GI, diarrhea hypotension orthostasis, IV fluid PO intake as able start abx for colitis, pt was seen in isolation today, R/O COVID was pending Vitals Vitals Vital Signs Date Time Temp Pulse Resp B/P (MAP) Pulse Ox O2 Delivery O2 Flow Rate FiO2 01/02/20 12:00 98.8 107 20 118/74 (89) 99 Room Air 98.8 Physical Exam General: Alert, mild distress Abdomen: Normal bowel sounds, Soft Extremities: No edema Skin: No rashes, No breakdown Labs LABS Laboratory Tests Test 01/01/20 15:55 01/01/20 16:05 01/01/20 18:00 01/01/20 20:35 White Blood Count 3.2 x10^3/uL (4.0-11.0) Red Blood Count 4.42 x10^6/uL (4.30-5.70) Hemoglobin 13.4 g/dL (13.0-17.5) Hematocrit 38.2 % (39.0-53.0) Mean Corpuscular Volume 86 fL (79-100) Mean Corpuscular Hemoglobin 30 pg (25-35) Mean Corpuscular Hemoglobin Concent 35 g/dL (31-37) Red Cell Distribution Width 13.1 % (11.5-14.5) Platelet Count 64 x10^3/uL (140-400) Neutrophils (%) (Auto) 69 % (31-73) Lymphocytes (%) (Auto) 18 % (24-48) Monocytes (%) (Auto) 12 % (0-9) Eosinophils (%) (Auto) 0 % (0-3) Basophils (%) (Auto) 1 % (0-3) Neutrophils # (Auto) 2.2 x10^3/uL (1.8-7.7) Lymphocytes # (Auto) 0.6 x10^3/uL (1.0-4.8) Monocytes # (Auto) 0.4 x10^3/uL (0.0-1.1) Eosinophils # (Auto) 0.0 x10^3/uL (0.0-0.7) Basophils # (Auto) 0.0 x10^3/uL (0.0-0.2) Platelet Estimate Decreased (ADEQUATE) Sodium Level 131 mmol/L (136-145) Potassium Level 3.5 mmol/L (3.5-5.1) Chloride Level 93 mmol/L (98-107) Carbon Dioxide Level 23 mmol/L (21-32) Anion Gap 15 (6-14) Blood Urea Nitrogen 8 mg/dL (8-26) Creatinine 1.6 mg/dL (0.7-1.3) Estimated GFR (Cockcroft-Gault) 53.3 BUN/Creatinine Ratio 5 (6-20) Glucose Level 168 mg/dL (70-99) Lactic Acid Level 2.2 mmol/L (0.4-2.0) 0.9 mmol/L (0.4-2.0) Calcium Level 8.3 mg/dL (8.5-10.1) Total Bilirubin 1.3 mg/dL (0.2-1.0) Aspartate Amino Transf (AST/SGOT) 204 U/L (15-37) Alanine Aminotransferase (ALT/SGPT) 131 U/L (16-63) Alkaline Phosphatase 133 U/L (46-116) Troponin I Quantitative < 0.017 ng/mL (0.000-0.055) [id number]-Type Natriuretic Peptide 174 pg/mL (0-124) Total Protein 7.8 g/dL (6.4-8.2) Albumin 3.6 g/dL (3.4-5.0) Albumin/Globulin Ratio 0.9 (1.0-1.7) Lipase 381 U/L (73-393) Ethyl Alcohol Level < 10 mg/dL (0-10) O2 Saturation 95 % (92-99) Arterial Blood pH 7.53 (7.35-7.45) Arterial Blood pCO2 at Patient Temp 26 mmHg (35-46) Arterial Blood pO2 at Patient Temp 70 mmHg (65-108) Arterial Blood HCO3 21 mmol/L (21-28) Arterial Blood Base Excess 0 mmol/L (-3-3) Oxyhemoglobin 94.1 % Methemoglobin 0.4 % (0.0-1.9) Carbon Monoxide, Quantitative 0.3 % (0.0-1.9) FiO2 Room air Urine Collection Type U cath Urine Color [place] Urine Clarity Turbid Urine pH 6.0 (<5.0-8.0) Urine Specific [place] 1.025 (1.000-1.030) Urine Protein 100 mg/dL (NEG-TRACE) Urine Glucose (UA) 100 mg/dL (NEG) Urine Ketones (Stick) 15 mg/dL (NEG) Urine Blood Negative (NEG) Urine Nitrite Negative (NEG) Urine Bilirubin Small (NEG) Urine Urobilinogen Dipstick 1.0 mg/dL (0.2 mg/dL) Urine Leukocyte Esterase Small (NEG) Urine RBC 0 /HPF (0-2) Urine WBC 11-20 /HPF (0-4) Urine Squamous Epithelial Cells Mod /LPF Urine Bacteria Few /HPF (0-FEW) Urine Hyaline Casts Many /HPF Urine Mucus Slight /LPF Urine Opiates Screen Neg (NEG) Urine Methadone Screen Neg (NEG) Urine Barbiturates Neg (NEG) Urine Phencyclidine Screen Neg (NEG) Urine Amphetamine/Methamphetamine Neg (NEG) Urine Benzodiazepines Screen Neg (NEG) Urine Cocaine Screen Neg (NEG) Urine Cannabinoids Screen Neg (NEG) Urine Ethyl Alcohol Neg (NEG) Test 01/02/20 04:00 White Blood Count 2.4 x10^3/uL (4.0-11.0) Red Blood Count 4.01 x10^6/uL (4.30-5.70) Hemoglobin 11.9 g/dL (13.0-17.5) Hematocrit 34.6 % (39.0-53.0) Mean Corpuscular Volume 86 fL (79-100) Mean Corpuscular Hemoglobin 30 pg (25-35) Mean Corpuscular Hemoglobin Concent 34 g/dL (31-37) Red Cell Distribution Width 13.6 % (11.5-14.5) Platelet Count 55 x10^3/uL (140-400) Neutrophils (%) (Auto) 51 % (31-73) Lymphocytes (%) (Auto) 34 % (24-48) Monocytes (%) (Auto) 14 % (0-9) Eosinophils (%) (Auto) 0 % (0-3) Basophils (%) (Auto) 1 % (0-3) Neutrophils # (Auto) 1.2 x10^3/uL (1.8-7.7) Lymphocytes # (Auto) 0.8 x10^3/uL (1.0-4.8) Monocytes # (Auto) 0.3 x10^3/uL (0.0-1.1) Eosinophils # (Auto) 0.0 x10^3/uL (0.0-0.7) Basophils # (Auto) 0.0 x10^3/uL (0.0-0.2) Sodium Level 135 mmol/L (136-145) Potassium Level 2.9 mmol/L (3.5-5.1) Chloride Level 98 mmol/L (98-107) Carbon Dioxide Level 24 mmol/L (21-32) Anion Gap 13 (6-14) Blood Urea Nitrogen 6 mg/dL (8-26) Creatinine 1.0 mg/dL (0.7-1.3) Estimated GFR (Cockcroft-Gault) 91.6 BUN/Creatinine Ratio 6 (6-20) Glucose Level 104 mg/dL (70-99) Calcium Level 7.3 mg/dL (8.5-10.1) Magnesium Level 1.2 mg/dL (1.8-2.4) Total Bilirubin 0.9 mg/dL (0.2-1.0) Gamma Glutamyl Transpeptidase 1153 U/L (10-85) Aspartate Amino Transf (AST/SGOT) 125 U/L (15-37) Alanine Aminotransferase (ALT/SGPT) 95 U/L (16-63) Alkaline Phosphatase 105 U/L (46-116) Total Protein 6.6 g/dL (6.4-8.2) Albumin 3.0 g/dL (3.4-5.0) Albumin/Globulin Ratio 0.8 (1.0-1.7) Thyroid Stimulating Hormone (TSH) 1.991 uIU/mL (0.358-3.74) Assessment and Plan Assessmemt and Plan Problems Medical Problems: (1) Orthostatic hypotension Status: Acute (2) Person under investigation for COVID-19 Status: Acute Comment Review of Relevant I have reviewed the following items rhonda (where applicable) has been applied. Labs Laboratory Tests Test 01/01/20 15:40 01/01/20 15:55 01/01/20 16:05 7/1/20 18:00 Coronavirus (COVID-19)(PCR) Not detected (NOT DETECT.) White Blood Count 3.2 x10^3/uL (4.0-11.0) Red Blood Count 4.42 x10^6/uL (4.30-5.70) Hemoglobin 13.4 g/dL (13.0-17.5) Hematocrit 38.2 % (39.0-53.0) Mean Corpuscular Volume 86 fL (79-100) Mean Corpuscular Hemoglobin 30 pg (25-35) Mean Corpuscular Hemoglobin Concent 35 g/dL (31-37) Red Cell Distribution Width 13.1 % (11.5-14.5) Platelet Count 64 x10^3/uL (140-400) Neutrophils (%) (Auto) 69 % (31-73) Lymphocytes (%) (Auto) 18 % (24-48) Monocytes (%) (Auto) 12 % (0-9) Eosinophils (%) (Auto) 0 % (0-3) Basophils (%) (Auto) 1 % (0-3) Neutrophils # (Auto) 2.2 x10^3/uL (1.8-7.7) Lymphocytes # (Auto) 0.6 x10^3/uL (1.0-4.8) Monocytes # (Auto) 0.4 x10^3/uL (0.0-1.1) Eosinophils # (Auto) 0.0 x10^3/uL (0.0-0.7) Basophils # (Auto) 0.0 x10^3/uL (0.0-0.2) Platelet Estimate Decreased (ADEQUATE) Sodium Level 131 mmol/L (136-145) Potassium Level 3.5 mmol/L (3.5-5.1) Chloride Level 93 mmol/L (98-107) Carbon Dioxide Level 23 mmol/L (21-32) Anion Gap 15 (6-14) Blood Urea Nitrogen 8 mg/dL (8-26) Creatinine 1.6 mg/dL (0.7-1.3) Estimated GFR (Cockcroft-Gault) 53.3 BUN/Creatinine Ratio 5 (6-20) Glucose Level 168 mg/dL (70-99) Lactic Acid Level 2.2 mmol/L (0.4-2.0) Calcium Level 8.3 mg/dL (8.5-10.1) Total Bilirubin 1.3 mg/dL (0.2-1.0) Aspartate Amino Transf (AST/SGOT) 204 U/L (15-37) Alanine Aminotransferase (ALT/SGPT) 131 U/L (16-63) Alkaline Phosphatase 133 U/L (46-116) Troponin I Quantitative < 0.017 ng/mL (0.000-0.055) [id number]-Type Natriuretic Peptide 174 pg/mL (0-124) Total Protein 7.8 g/dL (6.4-8.2) Albumin 3.6 g/dL (3.4-5.0) Albumin/Globulin Ratio 0.9 (1.0-1.7) Lipase 381 U/L (73-393) Ethyl Alcohol Level < 10 mg/dL (0-10) O2 Saturation 95 % (92-99) Arterial Blood pH 7.53 (7.35-7.45) Arterial Blood pCO2 at Patient Temp 26 mmHg (35-46) Arterial Blood pO2 at Patient Temp 70 mmHg (65-108) Arterial Blood HCO3 21 mmol/L (21-28) Arterial Blood Base Excess 0 mmol/L (-3-3) Oxyhemoglobin 94.1 % Methemoglobin 0.4 % (0.0-1.9) Carbon Monoxide, Quantitative 0.3 % (0.0-1.9) FiO2 Room air Urine Collection Type U cath Urine Color [place] Urine Clarity Turbid Urine pH 6.0 (<5.0-8.0) Urine Specific [place] 1.025 (1.000-1.030) Urine Protein 100 mg/dL (NEG-TRACE) Urine Glucose (UA) 100 mg/dL (NEG) Urine Ketones (Stick) 15 mg/dL (NEG) Urine Blood Negative (NEG) Urine Nitrite Negative (NEG) Urine Bilirubin Small (NEG) Urine Urobilinogen Dipstick 1.0 mg/dL (0.2 mg/dL) Urine Leukocyte Esterase Small (NEG) Urine RBC 0 /HPF (0-2) Urine WBC 11-20 /HPF (0-4) Urine Squamous Epithelial Cells Mod /LPF Urine Bacteria Few /HPF (0-FEW) Urine Hyaline Casts Many /HPF Urine Mucus Slight /LPF Urine Opiates Screen Neg (NEG) Urine Methadone Screen Neg (NEG) Urine Barbiturates Neg (NEG) Urine Phencyclidine Screen Neg (NEG) Urine Amphetamine/Methamphetamine Neg (NEG) Urine Benzodiazepines Screen Neg (NEG) Urine Cocaine Screen Neg (NEG) Urine Cannabinoids Screen Neg (NEG) Urine Ethyl Alcohol Neg (NEG) Test 01/01/20 20:35 01/02/20 04:00 Lactic Acid Level 0.9 mmol/L (0.4-2.0) White Blood Count 2.4 x10^3/uL (4.0-11.0) Red Blood Count 4.01 x10^6/uL (4.30-5.70) Hemoglobin 11.9 g/dL (13.0-17.5) Hematocrit 34.6 % (39.0-53.0) Mean Corpuscular Volume 86 fL (79-100) Mean Corpuscular Hemoglobin 30 pg (25-35) Mean Corpuscular Hemoglobin Concent 34 g/dL (31-37) Red Cell Distribution Width 13.6 % (11.5-14.5) Platelet Count 55 x10^3/uL (140-400) Neutrophils (%) (Auto) 51 % (31-73) Lymphocytes (%) (Auto) 34 % (24-48) Monocytes (%) (Auto) 14 % (0-9) Eosinophils (%) (Auto) 0 % (0-3) Basophils (%) (Auto) 1 % (0-3) Neutrophils # (Auto) 1.2 x10^3/uL (1.8-7.7) Lymphocytes # (Auto) 0.8 x10^3/uL (1.0-4.8) Monocytes # (Auto) 0.3 x10^3/uL (0.0-1.1) Eosinophils # (Auto) 0.0 x10^3/uL (0.0-0.7) Basophils # (Auto) 0.0 x10^3/uL (0.0-0.2) Sodium Level 135 mmol/L (136-145) Potassium Level 2.9 mmol/L (3.5-5.1) Chloride Level 98 mmol/L (98-107) Carbon Dioxide Level 24 mmol/L (21-32) Anion Gap 13 (6-14) Blood Urea Nitrogen 6 mg/dL (8-26) Creatinine 1.0 mg/dL (0.7-1.3) Estimated GFR (Cockcroft-Gault) 91.6 BUN/Creatinine Ratio 6 (6-20) Glucose Level 104 mg/dL (70-99) Calcium Level 7.3 mg/dL (8.5-10.1) Magnesium Level 1.2 mg/dL (1.8-2.4) Total Bilirubin 0.9 mg/dL (0.2-1.0) Gamma Glutamyl Transpeptidase 1153 U/L (10-85) Aspartate Amino Transf (AST/SGOT) 125 U/L (15-37) Alanine Aminotransferase (ALT/SGPT) 95 U/L (16-63) Alkaline Phosphatase 105 U/L (46-116) Total Protein 6.6 g/dL (6.4-8.2) Albumin 3.0 g/dL (3.4-5.0) Albumin/Globulin Ratio 0.8 (1.0-1.7) Thyroid Stimulating Hormone (TSH) 1.991 uIU/mL (0.358-3.74) Laboratory Tests Test 01/01/20 15:55 01/01/20 16:05 01/01/20 18:00 01/01/20 20:35 White Blood Count 3.2 x10^3/uL (4.0-11.0) Red Blood Count 4.42 x10^6/uL (4.30-5.70) Hemoglobin 13.4 g/dL (13.0-17.5) Hematocrit 38.2 % (39.0-53.0) Mean Corpuscular Volume 86 fL (79-100) Mean Corpuscular Hemoglobin 30 pg (25-35) Mean Corpuscular Hemoglobin Concent 35 g/dL (31-37) Red Cell Distribution Width 13.1 % (11.5-14.5) Platelet Count 64 x10^3/uL (140-400) Neutrophils (%) (Auto) 69 % (31-73) Lymphocytes (%) (Auto) 18 % (24-48) Monocytes (%) (Auto) 12 % (0-9) Eosinophils (%) (Auto) 0 % (0-3) Basophils (%) (Auto) 1 % (0-3) Neutrophils # (Auto) 2.2 x10^3/uL (1.8-7.7) Lymphocytes # (Auto) 0.6 x10^3/uL (1.0-4.8) Monocytes # (Auto) 0.4 x10^3/uL (0.0-1.1) Eosinophils # (Auto) 0.0 x10^3/uL (0.0-0.7) Basophils # (Auto) 0.0 x10^3/uL (0.0-0.2) Platelet Estimate Decreased (ADEQUATE) Sodium Level 131 mmol/L (136-145) Potassium Level 3.5 mmol/L (3.5-5.1) Chloride Level 93 mmol/L (98-107) Carbon Dioxide Level 23 mmol/L (21-32) Anion Gap 15 (6-14) Blood Urea Nitrogen 8 mg/dL (8-26) Creatinine 1.6 mg/dL (0.7-1.3) Estimated GFR (Cockcroft-Gault) 53.3 BUN/Creatinine Ratio 5 (6-20) Glucose Level 168 mg/dL (70-99) Lactic Acid Level 2.2 mmol/L (0.4-2.0) 0.9 mmol/L (0.4-2.0) Calcium Level 8.3 mg/dL (8.5-10.1) Total Bilirubin 1.3 mg/dL (0.2-1.0) Aspartate Amino Transf (AST/SGOT) 204 U/L (15-37) Alanine Aminotransferase (ALT/SGPT) 131 U/L (16-63) Alkaline Phosphatase 133 U/L (46-116) Troponin I Quantitative < 0.017 ng/mL (0.000-0.055) MQ-Ttd-[id number]-Type Natriuretic Peptide 174 pg/mL (0-124) Total Protein 7.8 g/dL (6.4-8.2) Albumin 3.6 g/dL (3.4-5.0) Albumin/Globulin Ratio 0.9 (1.0-1.7) Lipase 381 U/L (73-393) Ethyl Alcohol Level < 10 mg/dL (0-10) O2 Saturation 95 % (92-99) Arterial Blood pH 7.53 (7.35-7.45) Arterial Blood pCO2 at Patient Temp 26 mmHg (35-46) Arterial Blood pO2 at Patient Temp 70 mmHg (65-108) Arterial Blood HCO3 21 mmol/L (21-28) Arterial Blood Base Excess 0 mmol/L (-3-3) Oxyhemoglobin 94.1 % Methemoglobin 0.4 % (0.0-1.9) Carbon Monoxide, Quantitative 0.3 % (0.0-1.9) FiO2 Room air Urine Collection Type U cath Urine Color [place] Urine Clarity Turbid Urine pH 6.0 (<5.0-8.0) Urine Specific [place] 1.025 (1.000-1.030) Urine Protein 100 mg/dL (NEG-TRACE) Urine Glucose (UA) 100 mg/dL (NEG) Urine Ketones (Stick) 15 mg/dL (NEG) Urine Blood Negative (NEG) Urine Nitrite Negative (NEG) Urine Bilirubin Small (NEG) Urine Urobilinogen Dipstick 1.0 mg/dL (0.2 mg/dL) Urine Leukocyte Esterase Small (NEG) Urine RBC 0 /HPF (0-2) Urine WBC 11-20 /HPF (0-4) Urine Squamous Epithelial Cells Mod /LPF Urine Bacteria Few /HPF (0-FEW) Urine Hyaline Casts Many /HPF Urine Mucus Slight /LPF Urine Opiates Screen Neg (NEG) Urine Methadone Screen Neg (NEG) Urine Barbiturates Neg (NEG) Urine Phencyclidine Screen Neg (NEG) Urine Amphetamine/Methamphetamine Neg (NEG) Urine Benzodiazepines Screen Neg (NEG) Urine Cocaine Screen Neg (NEG) Urine Cannabinoids Screen Neg (NEG) Urine Ethyl Alcohol Neg (NEG) Test 01/02/20 04:00 White Blood Count 2.4 x10^3/uL (4.0-11.0) Red Blood Count 4.01 x10^6/uL (4.30-5.70) Hemoglobin 11.9 g/dL (13.0-17.5) Hematocrit 34.6 % (39.0-53.0) Mean Corpuscular Volume 86 fL (79-100) Mean Corpuscular Hemoglobin 30 pg (25-35) Mean Corpuscular Hemoglobin Concent 34 g/dL (31-37) Red Cell Distribution Width 13.6 % (11.5-14.5) Platelet Count 55 x10^3/uL (140-400) Neutrophils (%) (Auto) 51 % (31-73) Lymphocytes (%) (Auto) 34 % (24-48) Monocytes (%) (Auto) 14 % (0-9) Eosinophils (%) (Auto) 0 % (0-3) Basophils (%) (Auto) 1 % (0-3) Neutrophils # (Auto) 1.2 x10^3/uL (1.8-7.7) Lymphocytes # (Auto) 0.8 x10^3/uL (1.0-4.8) Monocytes # (Auto) 0.3 x10^3/uL (0.0-1.1) Eosinophils # (Auto) 0.0 x10^3/uL (0.0-0.7) Basophils # (Auto) 0.0 x10^3/uL (0.0-0.2) Sodium Level 135 mmol/L (136-145) Potassium Level 2.9 mmol/L (3.5-5.1) Chloride Level 98 mmol/L (98-107) Carbon Dioxide Level 24 mmol/L (21-32) Anion Gap 13 (6-14) Blood Urea Nitrogen 6 mg/dL (8-26) Creatinine 1.0 mg/dL (0.7-1.3) Estimated GFR (Cockcroft-Gault) 91.6 BUN/Creatinine Ratio 6 (6-20) Glucose Level 104 mg/dL (70-99) Calcium Level 7.3 mg/dL (8.5-10.1) Magnesium Level 1.2 mg/dL (1.8-2.4) Total Bilirubin 0.9 mg/dL (0.2-1.0) Gamma Glutamyl Transpeptidase 1153 U/L (10-85) Aspartate Amino Transf (AST/SGOT) 125 U/L (15-37) Alanine Aminotransferase (ALT/SGPT) 95 U/L (16-63) Alkaline Phosphatase 105 U/L (46-116) Total Protein 6.6 g/dL (6.4-8.2) Albumin 3.0 g/dL (3.4-5.0) Albumin/Globulin Ratio 0.8 (1.0-1.7) Thyroid Stimulating Hormone (TSH) 1.991 uIU/mL (0.358-3.74) Medications Current Medications Sodium Chloride 1,000 ml @ 1,000 mls/hr Q1H IV Last administered on 01/01/20at 15:59; Start 01/01/20 at 15:18; Stop 01/01/20 at 16:17; Status DC Sodium Chloride 1,000 ml @ 1,000 mls/hr 1X ONCE IV Last administered on 01/01/20at 15:59; Start 01/01/20 at 16:30; Stop 01/01/20 at 17:29; Status DC Sodium Chloride 1,000 ml @ 1,000 mls/hr 1X ONCE IV Last administered on 01/01/20at 18:52; Start 01/01/20 at 18:30; Stop 01/01/20 at 19:29; Status DC Ondansetron HCl (Zofran) 4 mg PRN Q8HRS PRN IV NAUSEA/VOMITING Last administered on 01/01/20at 21:57; Start 01/01/20 at 19:30; Stop 01/02/20 at 19:29 Acetaminophen (Tylenol) 650 mg PRN Q4HRS PRN PO FEVER > 100.3'F Last administered on 01/01/20at 21:57; Start 01/01/20 at 19:30; Stop 01/02/20 at 19:29 Doxazosin Mesylate (Cardura) 4 mg DAILY PO Last administered on 01/02/20at 10:43; Start 01/02/20 at 09:00 Multivitamins (Thera M Plus) 1 tab DAILY PO ; Start 01/07/20 at 09:00 Metoprolol Tartrate (Lopressor) 100 mg BID PO Last administered on 01/02/20at 10:42; Start 01/01/20 at 21:00 Folic Acid (Folic Acid) 1 mg DAILY PO ; Start 01/07/20 at 09:00 Enoxaparin Sodium (Lovenox Per Pharmacy Prophylaxis Dosing) 1 each PRN DAILY PRN MC SEE COMMENTS; Start 01/01/20 at 19:45 Multivitamins 10 ml/Thiamine HCl 100 mg/Folic Acid 1 mg/Sodium Chloride 1,011.2 ml @ 100 mls/ hr DAILY IV Last administered on 01/02/20at 07:57; Start 01/02/20 at 09:00; Stop 01/06/20 at 19:07 Lorazepam (Ativan Inj) 2 mg PRN Q1HR PRN IV For CIWA 8-14; Start 01/01/20 at 19:45 Lorazepam (Ativan Inj) 4 mg PRN Q1HR PRN IV For CIWA 15 or greater; Start 01/01/20 at 19:45 Enoxaparin Sodium (Lovenox 40mg Syringe) 40 mg Q24H SQ Last administered on 01/01/20at 21:57; Start 01/01/20 at 21:00 Sodium Chloride 1,000 ml @ 100 mls/hr Q10H IV Last administered on 01/01/20at 22:04; Start 01/01/20 at 22:00 Zolpidem Tartrate (Ambien) 5 mg PRN QHS PRN PO INSOMNIA Last administered on 01/01/20at 22:03; Start 01/01/20 at 21:45 Potassium Chloride (Klor-Con) 40 meq 1X ONCE PO Last administered on 01/02/20at 05:33; Start 01/02/20 at 05:30; Stop 01/02/20 at 05:31; Status DC Potassium Chloride (Klor-Con) 40 meq 1X ONCE PO Last administered on 01/02/20at 10:44; Start 01/02/20 at 11:00; Stop 01/02/20 at 11:01; Status DC Sodium Chloride 1,000 ml @ 1,000 mls/hr 1X ONCE IV Last administered on 01/02/20at 13:01; Start 01/02/20 at 11:00; Stop 01/02/20 at 11:59; Status DC Magnesium Sulfate 100 ml @ 25 mls/hr 1X ONCE IV Last administered on 01/02/20at 13:00; Start 01/02/20 at 11:00; Stop 01/02/20 at 14:59; Status DC Active Scripts Active [Folic Acid] 1 MG Tablet 1 Mg PO DAILY 30 Days Thera-M Tablet (Multivits,Ca,Minerals/Iron/Fa) 1 Each Tablet 1 Tab PO DAILY 30 Days Reported Metoprolol Tartrate 100 Mg Tablet 1 Tab PO BID Amlodipine Besylate 5 Mg Tablet 5 Mg PO DAILY Doxazosin Mesylate 4 Mg Tablet 1 Tab PO DAILY Lisinopril 40 Mg Tablet 1 Tab PO DAILY Vitals/I & O Vital Sign - Last 24 Hours 01/01/20 01/01/20 01/01/20 01/01/20 16:10 16:13 16:15 17:41 Pulse 101 106 110 112 Resp 20 20 20 20 B/P (MAP) 110/74 (86) 78/48 (58) 110/74 (86) 176/69 (104) Pulse Ox 98 99 97 100 O2 Delivery Room Air Room Air Room Air Room Air 01/01/20 01/01/20 01/01/20 01/01/20 18:05 18:21 20:20 20:34 Pulse 100 100 102 102 Resp 20 20 20 20 B/P (MAP) 128/83 (98) 120/77 (91) 123/84 (97) 123/89 (100) Pulse Ox 100 100 99 99 O2 Delivery Room Air Room Air Room Air Room Air 01/01/20 01/01/20 01/01/20 01/01/20 20:50 21:10 21:15 21:20 Temp 100.7 100.7 Pulse 105 104 108 112 Resp 20 16 16 16 B/P (MAP) 132/86 (101) 145/92 (109) 157/108 (124) 140/91 (107) Pulse Ox 99 100 100 99 O2 Delivery Room Air Room Air Room Air Room Air 01/01/20 01/01/20 01/01/20 01/02/20 21:30 21:58 23:00 04:00 Temp 100.1 98.6 100.1 98.6 Pulse 101 93 88 Resp 18 18 B/P (MAP) 140/96 132/82 (99) 137/93 (108) Pulse Ox 100 99 O2 Delivery Room Air Room Air Room Air 01/02/20 01/02/20 01/02/20 01/02/20 07:42 08:00 10:42 10:43 Temp 98.4 98.4 Pulse 107 150 150 Resp 22 B/P (MAP) 133/84 (100) 149/84 149/84 Pulse Ox 98 O2 Delivery Room Air Room Air 01/02/20 12:00 Temp 98.8 98.8 Pulse 107 Resp 20 B/P (MAP) 118/74 (89) Pulse Ox 99 O2 Delivery Room Air Intake and Output 01/01/20 01/01/20 01/02/20 15:00 23:00 07:00 Intake Total 2000 ml 1550 ml Output Total 100 ml 600 ml Balance 1900 ml 950 ml Justicifation of Admission Dx: Justifications for Admission: Justification of Admission Dx: Yes ABHIJEET ZHU MD Jan 02, 2020 15:48
[2020-01-02] MEDS ORDERED: metroNIDAZOLE 500 MG TABLET PO ONE (16:00)
--- NOTE | 2020-01-02 16:32 | PDOC2 ---
GI CONSULT Reason For Consult: Diarrhea HPI: HPI: 64 y/o male sent to ER yesterday from PCP's office. Ill x 1 week w/ fatigue, subjective fever, SOA, "gagging," decreased appetite, and diarrhea. Denies precipitating events. Apparently hypotensive w/ near syncope at PCP's office. COVID-19 was negative. Having small watery/soft stools frequently throughout the day. Previous to this illness had normal formed stools about once daily. "Not much comes out." Mostly happens in the mornings. Describes some "gagging while laying down" prior to admission. H/o indigestion - takes Mylanta sometimes and "I got a stomach pill prescription I think." No dysphagia. No hematemesis, hematochezia, melena, constipation, abdominal pain, or weight loss. "I've never been a big eater." No previous EGD. "A couple" colonoscopies w/ Dr. Bell in the past with polyps - says he's supposed to follow-up every two years but hasn't in 5 years or so. No GB, liver, pancreas, or PUD history. Drinks a pint of gin each day. 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 Takes Tylenol PRN - has Advil and Aleve at home "but it just sits on the counter." Empirically started on Cipro and Flagyl per primary. PMH: PMH: HTN, OA, depression FH: Family History: Cancer (sisters - unknown type) Social History: Smoke: <1 pack per day (1 pint of gin daily) ALCOHOL: heavy Drugs: Marijuana ROS: GEN: +sweats HEENT: Denies blurred vision, sore throat CV: Denies chest pain RESP: +SOA GI: Per HPI : Denies hematuria, dysuria ENDO: Denies weight changes NEURO: Denies confusion, dizziness MSK: Denies weakness, joint pain/swelling SKIN: Denies jaundice, pruritus Vitals: Vitals: Vital Signs Date Time Temp Pulse Resp B/P (MAP) Pulse Ox O2 Delivery O2 Flow Rate FiO2 01/02/20 12:00 98.8 107 20 118/74 (89) 99 Room Air 98.8 Labs: Labs: Laboratory Tests Test 01/01/20 18:00 01/01/20 20:35 01/02/20 04:00 Urine Collection Type U cath Urine Color [place] Urine Clarity Turbid Urine pH 6.0 (<5.0-8.0) Urine Specific [place] 1.025 (1.000-1.030) Urine Protein 100 mg/dL (NEG-TRACE) Urine Glucose (UA) 100 mg/dL (NEG) Urine Ketones (Stick) 15 mg/dL (NEG) Urine Blood Negative (NEG) Urine Nitrite Negative (NEG) Urine Bilirubin Small (NEG) Urine Urobilinogen Dipstick 1.0 mg/dL (0.2 mg/dL) Urine Leukocyte Esterase Small (NEG) Urine RBC 0 /HPF (0-2) Urine WBC 11-20 /HPF (0-4) Urine Squamous Epithelial Cells Mod /LPF Urine Bacteria Few /HPF (0-FEW) Urine Hyaline Casts Many /HPF Urine Mucus Slight /LPF Urine Opiates Screen Neg (NEG) Urine Methadone Screen Neg (NEG) Urine Barbiturates Neg (NEG) Urine Phencyclidine Screen Neg (NEG) Urine Amphetamine/Methamphetamine Neg (NEG) Urine Benzodiazepines Screen Neg (NEG) Urine Cocaine Screen Neg (NEG) Urine Cannabinoids Screen Neg (NEG) Urine Ethyl Alcohol Neg (NEG) Lactic Acid Level 0.9 mmol/L (0.4-2.0) White Blood Count 2.4 x10^3/uL (4.0-11.0) Red Blood Count 4.01 x10^6/uL (4.30-5.70) Hemoglobin 11.9 g/dL (13.0-17.5) Hematocrit 34.6 % (39.0-53.0) Mean Corpuscular Volume 86 fL (79-100) Mean Corpuscular Hemoglobin 30 pg (25-35) Mean Corpuscular Hemoglobin Concent 34 g/dL (31-37) Red Cell Distribution Width 13.6 % (11.5-14.5) Platelet Count 55 x10^3/uL (140-400) Neutrophils (%) (Auto) 51 % (31-73) Lymphocytes (%) (Auto) 34 % (24-48) Monocytes (%) (Auto) 14 % (0-9) Eosinophils (%) (Auto) 0 % (0-3) Basophils (%) (Auto) 1 % (0-3) Neutrophils # (Auto) 1.2 x10^3/uL (1.8-7.7) Lymphocytes # (Auto) 0.8 x10^3/uL (1.0-4.8) Monocytes # (Auto) 0.3 x10^3/uL (0.0-1.1) Eosinophils # (Auto) 0.0 x10^3/uL (0.0-0.7) Basophils # (Auto) 0.0 x10^3/uL (0.0-0.2) Sodium Level 135 mmol/L (136-145) Potassium Level 2.9 mmol/L (3.5-5.1) Chloride Level 98 mmol/L (98-107) Carbon Dioxide Level 24 mmol/L (21-32) Anion Gap 13 (6-14) Blood Urea Nitrogen 6 mg/dL (8-26) Creatinine 1.0 mg/dL (0.7-1.3) Estimated GFR (Cockcroft-Gault) 91.6 BUN/Creatinine Ratio 6 (6-20) Glucose Level 104 mg/dL (70-99) Calcium Level 7.3 mg/dL (8.5-10.1) Magnesium Level 1.2 mg/dL (1.8-2.4) Total Bilirubin 0.9 mg/dL (0.2-1.0) Gamma Glutamyl Transpeptidase 1153 U/L (10-85) Aspartate Amino Transf (AST/SGOT) 125 U/L (15-37) Alanine Aminotransferase (ALT/SGPT) 95 U/L (16-63) Alkaline Phosphatase 105 U/L (46-116) Total Protein 6.6 g/dL (6.4-8.2) Albumin 3.0 g/dL (3.4-5.0) Albumin/Globulin Ratio 0.8 (1.0-1.7) Thyroid Stimulating Hormone (TSH) 1.991 uIU/mL (0.358-3.74) Allergies: Coded Allergies: No Known Drug Allergies (Unverified , 04/03/15) Medications: Current Medications Medications (Trade) Dose Ordered Sig/Rosa Maria Route PRN Reason Start Time Stop Time Status Last Admin Dose Admin Sodium Chloride 1,000 ml @ 1,000 mls/hr 1X ONCE IV 01/01/20 16:30 01/01/20 17:29 DC 01/01/20 15:59 Sodium Chloride 1,000 ml @ 1,000 mls/hr 1X ONCE IV 01/01/20 18:30 01/01/20 19:29 DC 01/01/20 18:52 Ondansetron HCl (Zofran) 4 mg PRN Q8HRS PRN IV NAUSEA/VOMITING 01/01/20 19:30 01/02/20 19:29 01/01/20 21:57 Acetaminophen (Tylenol) 650 mg PRN Q4HRS PRN PO FEVER > 100.3'F 01/01/20 19:30 01/02/20 19:29 01/01/20 21:57 Doxazosin Mesylate (Cardura) 4 mg DAILY PO 01/02/20 09:00 01/02/20 10:43 Metoprolol Tartrate (Lopressor) 100 mg BID PO 01/01/20 21:00 01/02/20 10:42 Multivitamins 10 ml/Thiamine HCl 100 mg/Folic Acid 1 mg/Sodium Chloride 1,011.2 ml @ 100 mls/ hr DAILY IV 01/02/20 09:00 01/06/20 19:07 01/02/20 07:57 Enoxaparin Sodium (Lovenox 40mg Syringe) 40 mg Q24H SQ 01/01/20 21:00 01/01/20 21:57 Sodium Chloride 1,000 ml @ 100 mls/hr Q10H IV 01/01/20 22:00 01/01/20 22:04 Zolpidem Tartrate (Ambien) 5 mg PRN QHS PRN PO INSOMNIA 01/01/20 21:45 01/01/20 22:03 Potassium Chloride (Klor-Con) 40 meq 1X ONCE PO 01/02/20 05:30 01/02/20 05:31 DC 01/02/20 05:33 Potassium Chloride (Klor-Con) 40 meq 1X ONCE PO 01/02/20 11:00 01/02/20 11:01 DC 01/02/20 10:44 Sodium Chloride 1,000 ml @ 1,000 mls/hr 1X ONCE IV 01/02/20 11:00 01/02/20 11:59 DC 01/02/20 13:01 Magnesium Sulfate 100 ml @ 25 mls/hr 1X ONCE IV 01/02/20 11:00 01/02/20 14:59 DC 01/02/20 13:00 Imaging: Imaging: CXR IMPRESSION: No acute cardiopulmonary process. CT A/P IMPRESSION: 1. Diffuse hepatic steatosis. 2. Otherwise, no acute process identified within the abdomen or pelvis. PE: GEN: NAD HEENT: Atraumatic, PERRL LUNGS: diminished anteriorly HEART: tachycardic ABD: NABS, S/ND/NT EXTREMITY: No edema SKIN: No rashes, no jaundice NEURO/PSYCH: A & O 3 A/P: A/P: Fatigue, SOA, diarrhea - COVID-19 negative Pancytopenia, hypokalemia, hypomagnesemia, hypoalbuminemia, elevated AST and ALT H/o dyspepsia CRC screen, h/o colon polyps - past colonoscopies w/ Dr. Bell (last ~5 years ago) Hepatic steatosis Alcohol overuse -- Check stool studies. Will review need for antibiotics w/ Dr. Massey. Add acid-planner scheduler. Check INR, iron profile, B12, and Hepatitis panel for completeness. Monitor LFTs. Consider liver US. MAGNUS SCHULTE Jan 02, 2020 16:32
[2020-01-02] MEDS: CIPROFLOXACIN HCL 250 MG TABLET. PO SCH (17:44)
[2020-01-02] MEDS: PANTOPRAZOLE 40 MG TABLET.DR. PO SCH (17:44)
[2020-01-02 19:38] VITALS: BP 120/89
[2020-01-02] MEDS: metroNIDAZOLE 500 MG TABLET PO SCH (20:43)
[2020-01-02] MEDS: ENOXAPARIN 40 MG/0.4 ML SYRINGE. SQ SCH (20:44)
[2020-01-02 23:53] VITALS: BP 136/78
[2020-01-03] MEDS: ACETAMINOPHEN 325 MG TABLET. PO PRN ×3 (00:04→20:46)
[2020-01-03] MEDS: IV NORMAL SALINE 1000ML BAG 1,000 ML IV SCH ×3 (02:23→20:52)
[2020-01-03 03:38] VITALS: BP 118/83
[2020-01-03 04:44] LABS: PROTHROMBIN TIME PATIENT 13.6 SEC (11.7-14.0)
[2020-01-03 05:01] LABS: ALBUMIN 2.8 g/dL (3.4-5.0); ALBUMIN/GLOBULIN RATIO 0.8 (1.0-1.7); CALCIUM 7.1 mg/dL (8.5-10.1); CREATININE 0.8 mg/dL (0.7-1.3); GFR 118.5; TOTAL BILIRUBIN 0.8 mg/dL (0.2-1.0); TOTAL PROTEIN 6.3 g/dL (6.4-8.2)
[2020-01-03 05:09] LABS: POTASSIUM 2.6 mmol/L (3.5-5.1)
[2020-01-03] MEDS: metroNIDAZOLE 500 MG TABLET PO SCH ×3 (05:42→20:46)
[2020-01-03] MEDS ORDERED: POTASSIUM CHLORIDE 20 MEQ TABLET.ER. PO ONE (06:30)
[2020-01-03 07:19] VITALS: BP 145/95
[2020-01-03] MEDS: CIPROFLOXACIN HCL 250 MG TABLET. PO SCH ×2 (08:38→20:46)
[2020-01-03] MEDS: DOXAZOSIN MESYLATE 4 MG TABLET. PO SCH (08:38)
[2020-01-03] MEDS: PANTOPRAZOLE 40 MG TABLET.DR. PO SCH (08:38)
[2020-01-03] MEDS: METOPROLOL TART IMMED RELEASE 50 MG TABLET. PO SCH ×2 (08:39→20:46)
[2020-01-03] MEDS: MULTIVIT INFUSN,ADULT 4,VIT K 10 ML, THIAMINE INJ 100 MG, FOLIC ACID INJ 1 MG in IV NOR... IV SCH (08:40)
[2020-01-03 11:03] VITALS: BP 128/90
--- NOTE | 2020-01-03 11:46 | PDOC ---
[employer] PROGRESS NOTE Chief Complaint Chief Complaint Hypotension acute renal failure, vasomotor nephropathy transaminitis, overuse of alcohol, stopped 3 days ago when he started feeling poolry orthostatic hypotension, dry, dehydrated htn, chronic diastolic CHF BPH dyspnea, weakness, diarrhea, poss infectious, would be sepsis, History of Present Illness History of Present Illness 01/03/2020 Patient seen and examined Discussed with RN Chart reviewed Vitals/I&O Vitals/I&O: Vital Signs Date Time Temp Pulse Resp B/P (MAP) Pulse Ox O2 Delivery O2 Flow Rate FiO2 01/03/20 11:03 98.7 87 16 128/90 (103) 95 Room Air 98.7 I & O 01/02/20 01/02/20 01/03/20 15:00 23:00 07:00 Intake Total 480 ml 400 ml 600 ml Output Total 300 ml 1200 ml Balance 480 ml 100 ml -600 ml Physical Exam General: mild distress Heart: Regular rate Lungs: Clear Abdomen: Normal bowel sounds, Soft Extremities: No edema Skin: No rashes, No breakdown Labs Labs: Laboratory Tests Test 01/03/20 03:40 Prothrombin Time 13.6 SEC (11.7-14.0) Prothromb Time International Ratio 1.1 (0.8-1.1) Sodium Level 135 mmol/L (136-145) Potassium Level 2.6 mmol/L (3.5-5.1) Chloride Level 99 mmol/L (98-107) Carbon Dioxide Level 22 mmol/L (21-32) Anion Gap 14 (6-14) Blood Urea Nitrogen 3 mg/dL (8-26) Creatinine 0.8 mg/dL (0.7-1.3) Estimated GFR (Cockcroft-Gault) 118.5 BUN/Creatinine Ratio 4 (6-20) Glucose Level 98 mg/dL (70-99) Calcium Level 7.1 mg/dL (8.5-10.1) Total Bilirubin 0.8 mg/dL (0.2-1.0) Aspartate Amino Transf (AST/SGOT) 77 U/L (15-37) Alanine Aminotransferase (ALT/SGPT) 70 U/L (16-63) Alkaline Phosphatase 84 U/L (46-116) Total Protein 6.3 g/dL (6.4-8.2) Albumin 2.8 g/dL (3.4-5.0) Albumin/Globulin Ratio 0.8 (1.0-1.7) Hepatitis A IgM Antibody Nonreactive (Nonreactive) Hepatitis B Surface Antigen Nonreactive (Nonreactive) Hepatitis B Core IgM Antibody Nonreactive (Nonreactive) Hepatitis C IgG Antibody Nonreactive (Nonreactive) Assessment and Plan Assessmemt and Plan Problems Medical Problems: (1) Orthostatic hypotension Status: Acute (2) Person under investigation for COVID-19 Status: Acut Hypotension acute renal failure, vasomotor nephropathy transaminitis, overuse of alcohol, stopped 3 days ago when he started feeling poolry orthostatic hypotension, dry, dehydrated htn, chronic diastolic CHF BPH dyspnea, weakness, diarrhea, poss infectious, would be sepsis, Plan IV fluids IV antibiotics GI following Trend labs Home meds DVT prophylaxis Prognosis Comment Review of Relevant I have reviewed the following items rhonda (where applicable) has been applied. Medications: Current Medications Medications (Trade) Dose Ordered Sig/Rosa Maria Route PRN Reason Start Time Stop Time Status Last Admin Dose Admin Metronidazole (Flagyl) 500 mg Q8HRS PO 01/02/20 22:00 01/03/20 05:42 Metronidazole (Flagyl) 500 mg 1X ONCE PO 01/02/20 16:00 01/02/20 16:01 DC 01/02/20 17:44 Ciprofloxacin (Cipro) 500 mg BID PO 01/02/20 16:00 01/03/20 08:38 Pantoprazole Sodium (Protonix) 40 mg DAILYAC PO 01/02/20 17:00 01/03/20 08:38 Acetaminophen (Tylenol) 650 mg PRN Q6HRS PRN PO FEVER > 100.3'F 01/02/20 23:30 01/03/20 08:38 Potassium Chloride (Klor-Con) 40 meq 1X ONCE PO 01/03/20 06:30 01/03/20 06:31 DC 01/03/20 06:24 Justicifation of Admission Dx: Justifications for Admission: Justification of Admission Dx: Yes LESLIE IGLESIAS III DO Jan 03, 2020 11:46
--- NOTE | 2020-01-03 14:03 | PDOC ---
[facility] PROGRESS NOTE Reason for Follow-up Diarrhea Subjective Tolerating PO Physical Exam Lungs clear CV S1 S2 ABD +BS, soft, nontender Review of Relevant I have reviewed the following items rhonda (where applicable) has been applied. Labs Laboratory Tests Test 01/01/20 15:40 01/01/20 15:55 01/01/20 16:05 01/01/20 18:00 Coronavirus (COVID-19)(PCR) Not detected (NOT DETECT.) White Blood Count 3.2 x10^3/uL (4.0-11.0) Red Blood Count 4.42 x10^6/uL (4.30-5.70) Hemoglobin 13.4 g/dL (13.0-17.5) Hematocrit 38.2 % (39.0-53.0) Mean Corpuscular Volume 86 fL (79-100) Mean Corpuscular Hemoglobin 30 pg (25-35) Mean Corpuscular Hemoglobin Concent 35 g/dL (31-37) Red Cell Distribution Width 13.1 % (11.5-14.5) Platelet Count 64 x10^3/uL (140-400) Neutrophils (%) (Auto) 69 % (31-73) Lymphocytes (%) (Auto) 18 % (24-48) Monocytes (%) (Auto) 12 % (0-9) Eosinophils (%) (Auto) 0 % (0-3) Basophils (%) (Auto) 1 % (0-3) Neutrophils # (Auto) 2.2 x10^3/uL (1.8-7.7) Lymphocytes # (Auto) 0.6 x10^3/uL (1.0-4.8) Monocytes # (Auto) 0.4 x10^3/uL (0.0-1.1) Eosinophils # (Auto) 0.0 x10^3/uL (0.0-0.7) Basophils # (Auto) 0.0 x10^3/uL (0.0-0.2) Platelet Estimate Decreased (ADEQUATE) Sodium Level 131 mmol/L (136-145) Potassium Level 3.5 mmol/L (3.5-5.1) Chloride Level 93 mmol/L (98-107) Carbon Dioxide Level 23 mmol/L (21-32) Anion Gap 15 (6-14) Blood Urea Nitrogen 8 mg/dL (8-26) Creatinine 1.6 mg/dL (0.7-1.3) Estimated GFR (Cockcroft-Gault) 53.3 BUN/Creatinine Ratio 5 (6-20) Glucose Level 168 mg/dL (70-99) Lactic Acid Level 2.2 mmol/L (0.4-2.0) Calcium Level 8.3 mg/dL (8.5-10.1) Total Bilirubin 1.3 mg/dL (0.2-1.0) Aspartate Amino Transf (AST/SGOT) 204 U/L (15-37) Alanine Aminotransferase (ALT/SGPT) 131 U/L (16-63) Alkaline Phosphatase 133 U/L (46-116) Troponin I Quantitative < 0.017 ng/mL (0.000-0.055) UE-Lyd-P-Type Natriuretic Peptide 174 pg/mL (0-124) Total Protein 7.8 g/dL (6.4-8.2) Albumin 3.6 g/dL (3.4-5.0) Albumin/Globulin Ratio 0.9 (1.0-1.7) Lipase 381 U/L (73-393) Ethyl Alcohol Level < 10 mg/dL (0-10) O2 Saturation 95 % (92-99) Arterial Blood pH 7.53 (7.35-7.45) Arterial Blood pCO2 at Patient Temp 26 mmHg (35-46) Arterial Blood pO2 at Patient Temp 70 mmHg (65-108) Arterial Blood HCO3 21 mmol/L (21-28) Arterial Blood Base Excess 0 mmol/L (-3-3) Oxyhemoglobin 94.1 % Methemoglobin 0.4 % (0.0-1.9) Carbon Monoxide, Quantitative 0.3 % (0.0-1.9) FiO2 Room air Urine Collection Type U cath Urine Color [place] Urine Clarity Turbid Urine pH 6.0 (<5.0-8.0) Urine Specific [place] 1.025 (1.000-1.030) Urine Protein 100 mg/dL (NEG-TRACE) Urine Glucose (UA) 100 mg/dL (NEG) Urine Ketones (Stick) 15 mg/dL (NEG) Urine Blood Negative (NEG) Urine Nitrite Negative (NEG) Urine Bilirubin Small (NEG) Urine Urobilinogen Dipstick 1.0 mg/dL (0.2 mg/dL) Urine Leukocyte Esterase Small (NEG) Urine RBC 0 /HPF (0-2) Urine WBC 11-20 /HPF (0-4) Urine Squamous Epithelial Cells Mod /LPF Urine Bacteria Few /HPF (0-FEW) Urine Hyaline Casts Many /HPF Urine Mucus Slight /LPF Urine Opiates Screen Neg (NEG) Urine Methadone Screen Neg (NEG) Urine Barbiturates Neg (NEG) Urine Phencyclidine Screen Neg (NEG) Urine Amphetamine/Methamphetamine Neg (NEG) Urine Benzodiazepines Screen Neg (NEG) Urine Cocaine Screen Neg (NEG) Urine Cannabinoids Screen Neg (NEG) Urine Ethyl Alcohol Neg (NEG) Test 01/01/20 20:35 01/02/20 04:00 01/03/20 03:40 01/03/20 13:25 Lactic Acid Level 0.9 mmol/L (0.4-2.0) White Blood Count 2.4 x10^3/uL (4.0-11.0) Red Blood Count 4.01 x10^6/uL (4.30-5.70) Hemoglobin 11.9 g/dL (13.0-17.5) Hematocrit 34.6 % (39.0-53.0) Mean Corpuscular Volume 86 fL (79-100) Mean Corpuscular Hemoglobin 30 pg (25-35) Mean Corpuscular Hemoglobin Concent 34 g/dL (31-37) Red Cell Distribution Width 13.6 % (11.5-14.5) Platelet Count 55 x10^3/uL (140-400) Neutrophils (%) (Auto) 51 % (31-73) Lymphocytes (%) (Auto) 34 % (24-48) Monocytes (%) (Auto) 14 % (0-9) Eosinophils (%) (Auto) 0 % (0-3) Basophils (%) (Auto) 1 % (0-3) Neutrophils # (Auto) 1.2 x10^3/uL (1.8-7.7) Lymphocytes # (Auto) 0.8 x10^3/uL (1.0-4.8) Monocytes # (Auto) 0.3 x10^3/uL (0.0-1.1) Eosinophils # (Auto) 0.0 x10^3/uL (0.0-0.7) Basophils # (Auto) 0.0 x10^3/uL (0.0-0.2) Sodium Level 135 mmol/L (136-145) 135 mmol/L (136-145) Potassium Level 2.9 mmol/L (3.5-5.1) 2.6 mmol/L (3.5-5.1) 3.1 mmol/L (3.5-5.1) Chloride Level 98 mmol/L (98-107) 99 mmol/L (98-107) Carbon Dioxide Level 24 mmol/L (21-32) 22 mmol/L (21-32) Anion Gap 13 (6-14) 14 (6-14) Blood Urea Nitrogen 6 mg/dL (8-26) 3 mg/dL (8-26) Creatinine 1.0 mg/dL (0.7-1.3) 0.8 mg/dL (0.7-1.3) Estimated GFR (Cockcroft-Gault) 91.6 118.5 BUN/Creatinine Ratio 6 (6-20) 4 (6-20) Glucose Level 104 mg/dL (70-99) 98 mg/dL (70-99) Calcium Level 7.3 mg/dL (8.5-10.1) 7.1 mg/dL (8.5-10.1) Magnesium Level 1.2 mg/dL (1.8-2.4) Iron Level 60 ug/dL (65-175) Total Iron Binding Capacity 193 ug/dL (250-450) Iron Saturation 31 % (15-34) Total Bilirubin 0.9 mg/dL (0.2-1.0) 0.8 mg/dL (0.2-1.0) Gamma Glutamyl Transpeptidase 1153 U/L (10-85) Aspartate Amino Transf (AST/SGOT) 125 U/L (15-37) 77 U/L (15-37) Alanine Aminotransferase (ALT/SGPT) 95 U/L (16-63) 70 U/L (16-63) Alkaline Phosphatase 105 U/L (46-116) 84 U/L (46-116) Total Protein 6.6 g/dL (6.4-8.2) 6.3 g/dL (6.4-8.2) Albumin 3.0 g/dL (3.4-5.0) 2.8 g/dL (3.4-5.0) Albumin/Globulin Ratio 0.8 (1.0-1.7) 0.8 (1.0-1.7) Vitamin B12 Level 788 pg/mL (247-911) Thyroid Stimulating Hormone (TSH) 1.991 uIU/mL (0.358-3.74) Prothrombin Time 13.6 SEC (11.7-14.0) Prothromb Time International Ratio 1.1 (0.8-1.1) Hepatitis A IgM Antibody Nonreactive (Nonreactive) Hepatitis B Surface Antigen Nonreactive (Nonreactive) Hepatitis B Core IgM Antibody Nonreactive (Nonreactive) Hepatitis C IgG Antibody Nonreactive (Nonreactive) Laboratory Tests Test 01/03/20 03:40 01/03/20 13:25 Prothrombin Time 13.6 SEC (11.7-14.0) Prothromb Time International Ratio 1.1 (0.8-1.1) Sodium Level 135 mmol/L (136-145) Potassium Level 2.6 mmol/L (3.5-5.1) 3.1 mmol/L (3.5-5.1) Chloride Level 99 mmol/L (98-107) Carbon Dioxide Level 22 mmol/L (21-32) Anion Gap 14 (6-14) Blood Urea Nitrogen 3 mg/dL (8-26) Creatinine 0.8 mg/dL (0.7-1.3) Estimated GFR (Cockcroft-Gault) 118.5 BUN/Creatinine Ratio 4 (6-20) Glucose Level 98 mg/dL (70-99) Calcium Level 7.1 mg/dL (8.5-10.1) Total Bilirubin 0.8 mg/dL (0.2-1.0) Aspartate Amino Transf (AST/SGOT) 77 U/L (15-37) Alanine Aminotransferase (ALT/SGPT) 70 U/L (16-63) Alkaline Phosphatase 84 U/L (46-116) Total Protein 6.3 g/dL (6.4-8.2) Albumin 2.8 g/dL (3.4-5.0) Albumin/Globulin Ratio 0.8 (1.0-1.7) Hepatitis A IgM Antibody Nonreactive (Nonreactive) Hepatitis B Surface Antigen Nonreactive (Nonreactive) Hepatitis B Core IgM Antibody Nonreactive (Nonreactive) Hepatitis C IgG Antibody Nonreactive (Nonreactive) Medications Current Medications Sodium Chloride 1,000 ml @ 1,000 mls/hr Q1H IV Last administered on 01/01/20at 15:59; Start 01/01/20 at 15:18; Stop 01/01/20 at 16:17; Status DC Sodium Chloride 1,000 ml @ 1,000 mls/hr 1X ONCE IV Last administered on 01/01/20at 15:59; Start 01/01/20 at 16:30; Stop 01/01/20 at 17:29; Status DC Sodium Chloride 1,000 ml @ 1,000 mls/hr 1X ONCE IV Last administered on 01/01/20at 18:52; Start 01/01/20 at 18:30; Stop 01/01/20 at 19:29; Status DC Ondansetron HCl (Zofran) 4 mg PRN Q8HRS PRN IV NAUSEA/VOMITING Last administered on 01/01/20at 21:57; Start 01/01/20 at 19:30; Stop 01/02/20 at 19:29; Status DC Acetaminophen (Tylenol) 650 mg PRN Q4HRS PRN PO FEVER > 100.3'F Last administered on 01/01/20at 21:57; Start 01/01/20 at 19:30; Stop 01/02/20 at 19:29; Status DC Doxazosin Mesylate (Cardura) 4 mg DAILY PO Last administered on 01/03/20at 08:38; Start 01/02/20 at 09:00 Multivitamins (Thera M Plus) 1 tab DAILY PO ; Start 01/07/20 at 09:00 Metoprolol Tartrate (Lopressor) 100 mg BID PO Last administered on 01/03/20at 08:39; Start 01/01/20 at 21:00 Folic Acid (Folic Acid) 1 mg DAILY PO ; Start 01/07/20 at 09:00 Enoxaparin Sodium (Lovenox Per Pharmacy Prophylaxis Dosing) 1 each PRN DAILY PRN MC SEE COMMENTS; Start 01/01/20 at 19:45 Multivitamins 10 ml/Thiamine HCl 100 mg/Folic Acid 1 mg/Sodium Chloride 1,011.2 ml @ 100 mls/ hr DAILY IV Last administered on 01/03/20at 08:40; Start 01/02/20 at 09:00; Stop 01/06/20 at 19:07 Lorazepam (Ativan Inj) 2 mg PRN Q1HR PRN IV For CIWA 8-14 Last administered on 01/03/20at 08:44; Start 01/01/20 at 19:45 Lorazepam (Ativan Inj) 4 mg PRN Q1HR PRN IV For CIWA 15 or greater; Start 01/01/20 at 19:45 Enoxaparin Sodium (Lovenox 40mg Syringe) 40 mg Q24H SQ Last administered on 01/02/20at 20:44; Start 01/01/20 at 21:00 Sodium Chloride 1,000 ml @ 100 mls/hr Q10H IV Last administered on 01/03/20at 02:23; Start 01/01/20 at 22:00 Zolpidem Tartrate (Ambien) 5 mg PRN QHS PRN PO INSOMNIA Last administered on 01/01/20at 22:03; Start 01/01/20 at 21:45 Potassium Chloride (Klor-Con) 40 meq 1X ONCE PO Last administered on 01/02/20at 05:33; Start 01/02/20 at 05:30; Stop 01/02/20 at 05:31; Status DC Potassium Chloride (Klor-Con) 40 meq 1X ONCE PO Last administered on 01/02/20at 10:44; Start 01/02/20 at 11:00; Stop 01/02/20 at 11:01; Status DC Sodium Chloride 1,000 ml @ 1,000 mls/hr 1X ONCE IV Last administered on 01/02/20at 13:01; Start 01/02/20 at 11:00; Stop 01/02/20 at 11:59; Status DC Magnesium Sulfate 100 ml @ 25 mls/hr 1X ONCE IV Last administered on 01/02/20at 13:00; Start 01/02/20 at 11:00; Stop 01/02/20 at 14:59; Status DC Metronidazole (Flagyl) 500 mg Q8HRS PO Last administered on 01/03/20at 05:42; Start 01/02/20 at 22:00 Metronidazole (Flagyl) 500 mg 1X ONCE PO Last administered on 01/02/20at 17:44; Start 01/02/20 at 16:00; Stop 01/02/20 at 16:01; Status DC Ciprofloxacin (Cipro) 500 mg BID PO Last administered on 01/03/20at 08:38; Start 01/02/20 at 16:00 Pantoprazole Sodium (Protonix) 40 mg DAILYAC PO Last administered on 01/03/20at 08:38; Start 01/02/20 at 17:00 Calcium Carbonate/ Glycine (Tums) 500 mg PRN AFTMEALHC PRN PO INDIGESTION; Start 01/02/20 at 16:30 Acetaminophen (Tylenol) 650 mg PRN Q6HRS PRN PO FEVER > 100.3'F Last administered on 01/03/20at 08:38; Start 01/02/20 at 23:30 Potassium Chloride (Klor-Con) 40 meq 1X ONCE PO Last administered on 01/03/20at 06:24; Start 01/03/20 at 06:30; Stop 01/03/20 at 06:31; Status DC Lactobacillus Rhamnosus (Culturelle) 1 cap BID PO ; Start 01/03/20 at 21:00 Active Scripts Active [Folic Acid] 1 MG Tablet 1 Mg PO DAILY 30 Days Thera-M Tablet (Multivits,Ca,Minerals/Iron/Fa) 1 Each Tablet 1 Tab PO DAILY 30 Days Reported Metoprolol Tartrate 100 Mg Tablet 1 Tab PO BID Amlodipine Besylate 5 Mg Tablet 5 Mg PO DAILY Doxazosin Mesylate 4 Mg Tablet 1 Tab PO DAILY Lisinopril 40 Mg Tablet 1 Tab PO DAILY Vitals/I & O Vital Sign - Last 24 Hours 01/02/20 01/02/20 01/02/20 01/02/20 15:20 19:38 20:00 20:43 Temp 99.9 99.2 99.9 99.2 Pulse 105 115 115 Resp 17 16 B/P (MAP) 112/73 (86) 120/89 (99) 120/89 Pulse Ox 98 98 O2 Delivery Room Air Room Air Room Air 01/02/20 01/03/20 01/03/20 01/03/20 23:53 03:38 07:19 08:00 Temp 101.6 98.6 100.7 101.6 98.6 100.7 Pulse 87 93 108 Resp 16 16 18 B/P (MAP) 136/78 (97) 118/83 (95) 145/95 (112) Pulse Ox 97 97 96 O2 Delivery Room Air Room Air Room Air Room Air 01/03/20 01/03/20 01/03/20 08:38 08:39 11:03 Temp 98.7 98.7 Pulse 108 108 87 Resp 16 B/P (MAP) 145/95 145/95 128/90 (103) Pulse Ox 95 O2 Delivery Room Air Intake and Output 01/02/20 01/02/20 01/03/20 15:00 23:00 07:00 Intake Total 480 ml 400 ml 600 ml Output Total 300 ml 1200 ml Balance 480 ml 100 ml -600 ml Problem List Problems Medical Problems: (1) Orthostatic hypotension Status: Acute (2) Person under investigation for COVID-19 Status: Acute Assessment Diarrhea- resolved, advance diet and activity as tolerated, disposition per primary Justicifation of Admission Dx: Justifications for Admission: Justification of Admission Dx: Yes LUCIA CRUZ MD Jan 03, 2020 14:03
[2020-01-03 14:58] VITALS: BP 123/84
[2020-01-03 19:23] VITALS: BP 121/76
[2020-01-03] MEDS: LACTOBACILLUS RHAMNOSUS GG 1 CAPSULE. PO SCH (20:46)
[2020-01-03] MEDS: ENOXAPARIN 40 MG/0.4 ML SYRINGE. SQ SCH (20:47)
[2020-01-03 23:21] VITALS: BP 94/62
[2020-01-04 03:04] VITALS: BP 132/69
[2020-01-04] MEDS: ACETAMINOPHEN 325 MG TABLET. PO PRN ×2 (06:32→20:50)
[2020-01-04] MEDS: metroNIDAZOLE 500 MG TABLET PO SCH ×3 (06:32→20:49)
[2020-01-04 07:00] VITALS: BP 140/80
[2020-01-04] MEDS: METOPROLOL TART IMMED RELEASE 50 MG TABLET. PO SCH ×2 (08:37→20:50)
[2020-01-04] MEDS: PANTOPRAZOLE 40 MG TABLET.DR. PO SCH (08:37)
[2020-01-04] MEDS: DOXAZOSIN MESYLATE 4 MG TABLET. PO SCH (08:38)
[2020-01-04] MEDS: LACTOBACILLUS RHAMNOSUS GG 1 CAPSULE. PO SCH ×2 (08:38→20:49)
[2020-01-04] MEDS: FOLIC ACID 1 MG TABLET. PO SCH (08:38)
[2020-01-04] MEDS: MULTIVITAMIN with MINERAL TABLET. PO SCH (08:38)
[2020-01-04] MEDS: THIAMINE 100 MG TABLET. PO SCH (08:38)
[2020-01-04] MEDS: CIPROFLOXACIN HCL 250 MG TABLET. PO SCH ×2 (08:38→20:50)
--- NOTE | 2020-01-04 10:50 | NUR ---
CALL PLACED TO ICU CHARGE NURSE REGARDING POSITIVE SEPSIS SCREEN ON THIS PATIENT, PER PROTOCOL ORDERS GIVEN TO PLACE ORDER FOR CBC,BMP, LACTIC ACID AND BLOOD CULTURES AND CALL RESULTS TO DR. IGLESIAS WHEN AVAILABLE.
[2020-01-04 11:02] VITALS: BP 135/87
[2020-01-04 11:27] LABS: BASO % 1 % (0-3); EOS % 0 % (0-3); HEMOGLOBIN 10.7 g/dL (13.0-17.5); LYMPH # 0.7 x10^3/uL (1.0-4.8); LYMPH % 21 % (24-48); MEAN CORPUSCULAR HEMOGLOBIN 30 pg (25-35); MEAN CORPUSCULAR HGB CONC 36 g/dL (31-37); MEAN CORPUSCULAR VOLUME 85 fL (79-100); MONO # 0.5 x10^3/uL (0.0-1.1); MONO % 14 % (0-9); NEUT # 2.1 x10^3/uL (1.8-7.7); NEUT % 63 % (31-73); PLATELET COUNT 73 x10^3/uL (140-400); RED BLOOD COUNT 3.53 x10^6/uL (4.30-5.70); WHITE BLOOD COUNT 3.3 x10^3/uL (4.0-11.0)
[2020-01-04 11:38] LABS: CALCIUM 7.2 mg/dL (8.5-10.1); CREATININE 0.9 mg/dL (0.7-1.3); GFR 103.5
[2020-01-04 11:40] LABS: POTASSIUM 2.7 mmol/L (3.5-5.1)
[2020-01-04] MEDS ORDERED: POTASSIUM CHLORIDE 20 MEQ TABLET.ER. PO ONE ×2 (12:00→16:00)
[2020-01-04] MEDS: IV NORMAL SALINE 1000ML BAG 1,000 ML IV SCH ×2 (12:07→20:48)
--- NOTE | 2020-01-04 12:24 | PDOC ---
[facility] PROGRESS NOTE Chief Complaint Chief Complaint Hypotension acute renal failure, vasomotor nephropathy transaminitis, overuse of alcohol, stopped 3 days ago when he started feeling poolry orthostatic hypotension, dry, dehydrated htn, chronic diastolic CHF BPH dyspnea, weakness, diarrhea, poss infectious, would be sepsis, Hypokalemia History of Present Illness History of Present Illness 01/04/2020 Patient seen and examined He is alert but appears weak Discussed with RN Chart reviewed Gave order for potassium replaced 01/03/2020 Patient seen and examined Discussed with RN Chart reviewed Vitals/I&O Vitals/I&O: Vital Signs Date Time Temp Pulse Resp B/P (MAP) Pulse Ox O2 Delivery O2 Flow Rate FiO2 01/04/20 11:02 99.2 67 20 135/87 (103) 96 Room Air 99.2 I & O 01/03/20 01/03/20 01/04/20 15:00 23:00 07:00 Intake Total 200 ml 700 ml Output Total 300 ml 600 ml Balance -100 ml 100 ml Physical Exam General: mild distress Heart: Regular rate Lungs: Clear Abdomen: Normal bowel sounds, Soft Extremities: No edema Skin: No rashes, No breakdown Labs Labs: Laboratory Tests Test 01/03/20 13:25 01/04/20 11:15 Potassium Level 3.1 mmol/L (3.5-5.1) 2.7 mmol/L (3.5-5.1) White Blood Count 3.3 x10^3/uL (4.0-11.0) Red Blood Count 3.53 x10^6/uL (4.30-5.70) Hemoglobin 10.7 g/dL (13.0-17.5) Hematocrit 30.0 % (39.0-53.0) Mean Corpuscular Volume 85 fL (79-100) Mean Corpuscular Hemoglobin 30 pg (25-35) Mean Corpuscular Hemoglobin Concent 36 g/dL (31-37) Red Cell Distribution Width 13.0 % (11.5-14.5) Platelet Count 73 x10^3/uL (140-400) Neutrophils (%) (Auto) 63 % (31-73) Lymphocytes (%) (Auto) 21 % (24-48) Monocytes (%) (Auto) 14 % (0-9) Eosinophils (%) (Auto) 0 % (0-3) Basophils (%) (Auto) 1 % (0-3) Neutrophils # (Auto) 2.1 x10^3/uL (1.8-7.7) Lymphocytes # (Auto) 0.7 x10^3/uL (1.0-4.8) Monocytes # (Auto) 0.5 x10^3/uL (0.0-1.1) Eosinophils # (Auto) 0.0 x10^3/uL (0.0-0.7) Basophils # (Auto) 0.0 x10^3/uL (0.0-0.2) Sodium Level 130 mmol/L (136-145) Chloride Level 94 mmol/L (98-107) Carbon Dioxide Level 26 mmol/L (21-32) Anion Gap 10 (6-14) Blood Urea Nitrogen 3 mg/dL (8-26) Creatinine 0.9 mg/dL (0.7-1.3) Estimated GFR (Cockcroft-Gault) 103.5 Glucose Level 100 mg/dL (70-99) Lactic Acid Level 0.8 mmol/L (0.4-2.0) Calcium Level 7.2 mg/dL (8.5-10.1) Magnesium Level 1.3 mg/dL (1.8-2.4) Assessment and Plan Assessmemt and Plan Problems Medical Problems: (1) Orthostatic hypotension Status: Acute (2) Person under investigation for COVID-19 Status: Acute Hypotension acute renal failure, vasomotor nephropathy transaminitis, overuse of alcohol, stopped 3 days ago when he started feeling poolry orthostatic hypotension, dry, dehydrated htn, chronic diastolic CHF BPH dyspnea, weakness, diarrhea, poss infectious, would be sepsis Hypokalemia Plan Place potassium personnel monitor IV fluids IV antibiotics GI following Trend labs Home meds DVT prophylaxis Prognosis Comment Review of Relevant I have reviewed the following items rhonda (where applicable) has been applied. Medications: Current Medications Medications (Trade) Dose Ordered Sig/Rosa Maria Route PRN Reason Start Time Stop Time Status Last Admin Dose Admin Multivitamins (Thera M Plus) 1 tab DAILY PO 01/04/20 09:00 01/04/20 08:38 Folic Acid (Folic Acid) 1 mg DAILY PO 01/04/20 09:00 01/04/20 08:38 Lactobacillus Rhamnosus (Culturelle) 1 cap BID PO 01/03/20 21:00 01/04/20 08:38 Thiamine Mononitrate (Vitamin B-1) 100 mg DAILY PO 01/04/20 09:00 01/04/20 08:38 Potassium Chloride (Klor-Con) 40 meq 1X ONCE PO 01/04/20 12:00 01/04/20 12:01 DC 01/04/20 12:06 Justicifation of Admission Dx: Justifications for Admission: Justification of Admission Dx: Yes LESLIE IGLESIAS III DO Jan 04, 2020 12:24
[2020-01-04] MEDS ORDERED: MAGNESIUM SULFATE 4GM 100 ML IV ONE (14:00)
[2020-01-04 15:06] VITALS: BP 138/92
[2020-01-04 19:58] VITALS: BP 144/92
[2020-01-04] MEDS: ENOXAPARIN 40 MG/0.4 ML SYRINGE. SQ SCH (20:49)
[2020-01-04 23:42] VITALS: BP 125/86
[2020-01-05 03:21] VITALS: BP 151/97
[2020-01-05] MEDS: ACETAMINOPHEN 325 MG TABLET. PO PRN ×3 (04:06→20:55)
[2020-01-05 05:39] LABS: BASO % 1 % (0-3); EOS % 0 % (0-3); HEMATOCRIT 30.6 % (39.0-53.0); HEMOGLOBIN 10.6 g/dL (13.0-17.5); LYMPH # 0.7 x10^3/uL (1.0-4.8); LYMPH % 18 % (24-48); MEAN CORPUSCULAR HEMOGLOBIN 30 pg (25-35); MEAN CORPUSCULAR HGB CONC 35 g/dL (31-37); MEAN CORPUSCULAR VOLUME 87 fL (79-100); MONO # 0.7 x10^3/uL (0.0-1.1); MONO % 19 % (0-9); NEUT # 2.5 x10^3/uL (1.8-7.7); NEUT % 63 % (31-73); PLATELET COUNT 86 x10^3/uL (140-400); RED BLOOD COUNT 3.53 x10^6/uL (4.30-5.70); RED CELL DISTRIBUTION WIDTH 13.6 % (11.5-14.5)
[2020-01-05] MEDS: IV NORMAL SALINE 1000ML BAG 1,000 ML IV SCH ×3 (06:00→23:54)
[2020-01-05] MEDS: metroNIDAZOLE 500 MG TABLET PO SCH ×2 (06:00→15:51)
[2020-01-05 07:30] VITALS: BP 133/88
[2020-01-05 07:33] LABS: CALCIUM 7.1 mg/dL (8.5-10.1); CREATININE 0.9 mg/dL (0.7-1.3); GFR 103.5; MAGNESIUM 1.7 mg/dL (1.8-2.4); POTASSIUM 3.3 mmol/L (3.5-5.1)
[2020-01-05] MEDS: DOXAZOSIN MESYLATE 4 MG TABLET. PO SCH (08:20)
[2020-01-05] MEDS: THIAMINE 100 MG TABLET. PO SCH (08:20)
[2020-01-05] MEDS: MULTIVITAMIN with MINERAL TABLET. PO SCH (08:21)
[2020-01-05] MEDS: FOLIC ACID 1 MG TABLET. PO SCH (08:21)
[2020-01-05] MEDS: LACTOBACILLUS RHAMNOSUS GG 1 CAPSULE. PO SCH ×2 (08:21→20:55)
[2020-01-05] MEDS: PANTOPRAZOLE 40 MG TABLET.DR. PO SCH (08:21)
[2020-01-05] MEDS: CIPROFLOXACIN HCL 250 MG TABLET. PO SCH (08:21)
[2020-01-05] MEDS: METOPROLOL TART IMMED RELEASE 50 MG TABLET. PO SCH ×2 (08:21→20:55)
[2020-01-05 09:06] LABS: % LYMPHS 19 % (24-48); % MONOS 8 % (0-10); % SEGS 73 % (35-66)
[2020-01-05 09:07] LABS: PLT ESTIMATE DECREASED (ADEQUATE)
[2020-01-05 11:08] VITALS: BP 156/100
--- NOTE | 2020-01-05 13:43 | PDOC ---
[facility] [facility] PROGRESS NOTE Chief Complaint Chief Complaint Hypotension acute renal failure, vasomotor nephropathy transaminitis, overuse of alcohol, stopped 3 days ago when he started feeling poolry orthostatic hypotension, dry, dehydrated htn, chronic diastolic CHF BPH dyspnea, weakness, diarrhea, poss infectious, would be sepsis, Hypokalemia History of Present Illness History of Present Illness 01/05/2020 Patient seen and examined Chart reviewed Discussed with RN He is having low-grade fevers We are going to consult infectious disease for second opinion He is on Flagyl and Cipro currently Still having some diarrhea Complains of some abdominal pain 01/04/2020 Patient seen and examined He is alert but appears weak Discussed with RN Chart reviewed Gave order for potassium replaced 01/03/2020 Patient seen and examined Discussed with RN Chart reviewed Vitals/I&O Vitals/I&O: Vital Signs Date Time Temp Pulse Resp B/P (MAP) Pulse Ox O2 Delivery O2 Flow Rate FiO2 01/05/20 11:08 102.4 88 16 156/100 (118) 98 Room Air 102.4 I & O 01/04/20 01/04/20 01/05/20 14:59 22:59 06:59 Intake Total 600 ml 710 ml Balance 600 ml 710 ml Physical Exam General: mild distress Heart: Regular rate Lungs: Clear Abdomen: Normal bowel sounds, Soft Extremities: No edema Skin: No rashes, No breakdown Labs Labs: Laboratory Tests Test 01/05/20 05:00 White Blood Count 4.0 x10^3/uL (4.0-11.0) Red Blood Count 3.53 x10^6/uL (4.30-5.70) Hemoglobin 10.6 g/dL (13.0-17.5) Hematocrit 30.6 % (39.0-53.0) Mean Corpuscular Volume 87 fL (79-100) Mean Corpuscular Hemoglobin 30 pg (25-35) Mean Corpuscular Hemoglobin Concent 35 g/dL (31-37) Red Cell Distribution Width 13.6 % (11.5-14.5) Platelet Count 86 x10^3/uL (140-400) Neutrophils (%) (Auto) 63 % (31-73) Lymphocytes (%) (Auto) 18 % (24-48) Monocytes (%) (Auto) 19 % (0-9) Eosinophils (%) (Auto) 0 % (0-3) Basophils (%) (Auto) 1 % (0-3) Neutrophils # (Auto) 2.5 x10^3/uL (1.8-7.7) Lymphocytes # (Auto) 0.7 x10^3/uL (1.0-4.8) Monocytes # (Auto) 0.7 x10^3/uL (0.0-1.1) Eosinophils # (Auto) 0.0 x10^3/uL (0.0-0.7) Basophils # (Auto) 0.0 x10^3/uL (0.0-0.2) Segmented Neutrophils % 73 % (35-66) Lymphocytes % 19 % (24-48) Monocytes % 8 % (0-10) Platelet Estimate Decreased (ADEQUATE) Sodium Level 129 mmol/L (136-145) Potassium Level 3.3 mmol/L (3.5-5.1) Chloride Level 93 mmol/L (98-107) Carbon Dioxide Level 27 mmol/L (21-32) Anion Gap 9 (6-14) Blood Urea Nitrogen 3 mg/dL (8-26) Creatinine 0.9 mg/dL (0.7-1.3) Estimated GFR (Cockcroft-Gault) 103.5 Glucose Level 99 mg/dL (70-99) Calcium Level 7.1 mg/dL (8.5-10.1) Magnesium Level 1.7 mg/dL (1.8-2.4) Assessment and Plan Assessmemt and Plan Problems Medical Problems: (1) Orthostatic hypotension Status: Acute (2) Person under investigation for COVID-19 Status: Acute Hypotension acute renal failure, vasomotor nephropathy transaminitis, overuse of alcohol, stopped 3 days ago when he started feeling poolry orthostatic hypotension, dry, dehydrated htn, chronic diastolic CHF BPH dyspnea, weakness, diarrhea, poss infectious, would be sepsis Hypokalemia Plan Consult infectious disease for second opinion 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 Medications: Current Medications Medications (Trade) Dose Ordered Sig/Rosa Maria Route PRN Reason Start Time Stop Time Status Last Admin Dose Admin Potassium Chloride (Klor-Con) 40 meq 1X ONCE PO 01/04/20 16:00 01/04/20 16:01 DC 01/04/20 16:41 Magnesium Sulfate 100 ml @ 25 mls/hr 1X ONCE IV 01/04/20 14:00 01/04/20 17:59 DC 01/04/20 14:27 Justicifation of Admission Dx: Justifications for Admission: Justification of Admission Dx: Yes LESLIE IGLESIAS III DO Jan 05, 2020 13:43
[2020-01-05 15:18] VITALS: BP 142/81
--- NOTE | 2020-01-05 15:36 | PDOC ---
Infectious Disease Note Vital Sign Vital Signs Vital Signs Date Time Temp Pulse Resp B/P (MAP) Pulse Ox O2 Delivery O2 Flow Rate FiO2 01/05/20 15:18 99.3 88 18 142/81 (101) 98 Room Air 99.3 Labs Lab Laboratory Tests Test 01/05/20 05:00 White Blood Count 4.0 x10^3/uL (4.0-11.0) Red Blood Count 3.53 x10^6/uL (4.30-5.70) Hemoglobin 10.6 g/dL (13.0-17.5) Hematocrit 30.6 % (39.0-53.0) Mean Corpuscular Volume 87 fL (79-100) Mean Corpuscular Hemoglobin 30 pg (25-35) Mean Corpuscular Hemoglobin Concent 35 g/dL (31-37) Red Cell Distribution Width 13.6 % (11.5-14.5) Platelet Count 86 x10^3/uL (140-400) Neutrophils (%) (Auto) 63 % (31-73) Lymphocytes (%) (Auto) 18 % (24-48) Monocytes (%) (Auto) 19 % (0-9) Eosinophils (%) (Auto) 0 % (0-3) Basophils (%) (Auto) 1 % (0-3) Neutrophils # (Auto) 2.5 x10^3/uL (1.8-7.7) Lymphocytes # (Auto) 0.7 x10^3/uL (1.0-4.8) Monocytes # (Auto) 0.7 x10^3/uL (0.0-1.1) Eosinophils # (Auto) 0.0 x10^3/uL (0.0-0.7) Basophils # (Auto) 0.0 x10^3/uL (0.0-0.2) Segmented Neutrophils % 73 % (35-66) Lymphocytes % 19 % (24-48) Monocytes % 8 % (0-10) Platelet Estimate Decreased (ADEQUATE) Sodium Level 129 mmol/L (136-145) Potassium Level 3.3 mmol/L (3.5-5.1) Chloride Level 93 mmol/L (98-107) Carbon Dioxide Level 27 mmol/L (21-32) Anion Gap 9 (6-14) Blood Urea Nitrogen 3 mg/dL (8-26) Creatinine 0.9 mg/dL (0.7-1.3) Estimated GFR (Cockcroft-Gault) 103.5 Glucose Level 99 mg/dL (70-99) Calcium Level 7.1 mg/dL (8.5-10.1) Magnesium Level 1.7 mg/dL (1.8-2.4) Micro Microbiology 01/04/20 Blood Culture - Preliminary, Resulted NO GROWTH AFTER 1 DAY Objective Assessment Fever Pancytopenia - some better Diarrhea. C. diff and stools studies neg Orthostatic hypotension Transaminitis- improving HERMELINDO - improved Hyponatremia Chronic diastolic HF Hypertension BPH Alcohol abuse Tobacco dependent Plan Plan of Care Change abx to Zosyn Echo May need CT maxillofacial scan Maintain hydration Hyponatremia per primary GI following D/w nursing D/w Dr. Heranndez Thank you [phone] Patient discussed with STERILE PREPARATION TECHNICIAN. Chart reviewed in detail. Above plan co-formulated and agreed upon with STERILE PREPARATION TECHNICIAN on 01/05/2020. GLO BROWN APRN Jan 05, 2020 15:36 SREE HERNANDEZ MD Jan 05, 2020 19:55
[2020-01-05] MEDS: PIPERACILLIN/TAZOBACTAM 3.375 GM in IV NORMAL SALINE 50ML 50 ML IV SCH ×2 (17:50→23:54)
--- NOTE | 2020-01-05 18:53 | CONS ---
DATE OF CONSULTATION: 01/05/2020 REFERRING PHYSICIAN: Dr. Ayala. REASON FOR CONSULT: Fever and diarrhea. HISTORY OF PRESENT ILLNESS: This patient is a 64-year-old -[place] male with a history of alcohol abuse, who was sent to the ER from [facility] for orthostatic hypotension. The patient says he had not been feeling well for about 2 weeks. He has felt run down, weak, fatigued, no energy. He has had diarrhea, mild abdominal pain, nausea and frequent bouts of diarrhea and abdominal/pelvis CT scan showed diffuse hepatic steatosis, otherwise no acute process. He was started on ciprofloxacin and metronidazole. Clostridium difficile and stool studies are negative. Since admission, the patient has been running fevers, T-max 102.8, and pancytopenia. Blood cultures from the 4th are negative to date. Lactic acid is normal. He has had about 11 stools within the last 24 hours. He denies headache, nasal/sinus congestion or sore throat. Denies teeth pain. Denies cough, shortness of air or chest discomfort. Denies dysuria, frequency or urgency. Denies outdoor activities, tick bites or rash. He was last hospitalized in October. He does not recall taking any antibiotics. PAST MEDICAL HISTORY: Alcohol abuse, hypertension, GERD, depression, anxiety, and osteoarthritis, chronic diastolic heart failure, benign prostatic hypertrophy, and hypertension. PAST SURGICAL HISTORY: No significant past surgical history FAMILY HISTORY: Cancer. SOCIAL HISTORY: Alcohol abuse. He drinks about a pint of gin daily. He smokes cigarettes and marijuana. 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 ALLERGIES: No known drug allergies. MEDICATIONS: Reviewed on MAR and includes ciprofloxacin, metronidazole, and probiotics. REVIEW OF SYSTEMS: Per HPI, otherwise all other review of systems are negative. PHYSICAL EXAMINATION: VITAL SIGNS: Temperature 99.3, T-max 102.8, blood pressure 142/81, heart rate 88, respiratory rate 18, pulse oximetry 98% on room air. BMI 26. GENERAL: The patient is lying down, alert, appears comfortable. HEENT: Pupils equally round. Normal conjunctivae. Oropharynx pink and moist. No lesions seen. His teeth do not look terribly bad. Some are missing. NECK: Supple. LUNGS: Clear to auscultation. No accessory muscle use. HEART: S1, S2. ABDOMEN: Mildly distended, soft, tender, no rebound or guarding. Bowel sounds present. EXTREMITIES: No gross edema or cyanosis. SKIN: Warm to touch. No signs of rash. NEUROLOGIC: Alert and answering questions appropriately. LABORATORY DATA: WBC 4.0 from 2.4, hemoglobin 10.6, platelets 86,000 from 55,000, segs 73%, lymphocytes 19%. Sodium 129, potassium 3.3, creatinine 0.9 from 1.6 on admission, BUN 3, glucose 99. Lactic acid 0.8, total bilirubin 0.4 from 1.3, AST 77 from 204, ALT 70 from 131, alkaline phosphatase 84. Troponin less than 0.017. BNP 174. Albumin 3.6, lipase 381. Clostridium difficile negative, 01/02/2020; COVID-19 PCR negative, 01/01/2020. Hepatitis panel nonreactive. Stool studies negative for Campylobacter, E. coli, Shigella, Salmonella. Urine toxicology negative. CT abdomen and pelvis scan per HPI. Chest x-ray showed clear lungs, no pneumothorax, pleural effusion. Blood cultures from 01/04/2020 negative to date. IMPRESSION: 1. Fever. 2. Pancytopenia, some better. 3. Diarrhea. Clostridium difficile, PCR and study stools are negative. 4. Orthostatic hypotension. 5. Transaminitis, improving. 6. Acute kidney injury, improved. 7. Hyponatremia. 8. Chronic diastolic heart failure. 9. Hypertension. 10. Benign prostatic hypertrophy. 11. Alcohol abuse. 12. Tobacco dependency. PLAN: 1. Recommend changing antibiotics to Zosyn. 2. Echocardiogram. 3. May need a CT maxillary scan. 4. Labs have been ordered for the morning. 5. Follow up culture results. 6. Maintain aspiration precautions. 7. Maintain hydration. 8. Hyponatremia per primary. 9. GI following, discussed with nursing. Thank you, Dr. Ayala, for asking us to participate in this patient's care. Should you have further questions or concerns, please call. SREE LOPEZ MD DR: GRICEL/solitario JOB#: [id number] / [id number]
[2020-01-05 19:47] VITALS: BP 152/92
[2020-01-05] MEDS: CALCIUM CARBONATE 500 MG TAB.CHEW PO PRN (20:55)
[2020-01-05] MEDS: ENOXAPARIN 40 MG/0.4 ML SYRINGE. SQ SCH (20:56)
[2020-01-05 23:04] VITALS: BP 132/88
[2020-01-06] VITALS (8 sets, daily range): BP systolic 99–173; BP diastolic 61–88
[2020-01-06] MEDS: ACETAMINOPHEN 325 MG TABLET. PO PRN ×2 (03:16→18:04)
[2020-01-06] MEDS: CALCIUM CARBONATE 500 MG TAB.CHEW PO PRN ×2 (04:23→18:04)
[2020-01-06 05:35] LABS: BASO % 1 % (0-3); EOS % 0 % (0-3); HEMATOCRIT 29.5 % (39.0-53.0); HEMOGLOBIN 10.2 g/dL (13.0-17.5); LYMPH # 0.7 x10^3/uL (1.0-4.8); LYMPH % 17 % (24-48); MEAN CORPUSCULAR HEMOGLOBIN 30 pg (25-35); MEAN CORPUSCULAR HGB CONC 35 g/dL (31-37); MEAN CORPUSCULAR VOLUME 86 fL (79-100); MONO # 0.8 x10^3/uL (0.0-1.1); MONO % 19 % (0-9); NEUT # 2.6 x10^3/uL (1.8-7.7); NEUT % 63 % (31-73); PLATELET COUNT 110 x10^3/uL (140-400); RED BLOOD COUNT 3.44 x10^6/uL (4.30-5.70); RED CELL DISTRIBUTION WIDTH 13.6 % (11.5-14.5)
[2020-01-06] MEDS: PIPERACILLIN/TAZOBACTAM 3.375 GM in IV NORMAL SALINE 50ML 50 ML IV SCH ×3 (06:07→18:01)
[2020-01-06] MEDS: PANTOPRAZOLE 40 MG TABLET.DR. PO SCH (07:30)
[2020-01-06] MEDS: FOLIC ACID 1 MG TABLET. PO SCH (09:00)
[2020-01-06] MEDS: LACTOBACILLUS RHAMNOSUS GG 1 CAPSULE. PO SCH ×2 (09:00→21:34)
[2020-01-06] MEDS: DOXAZOSIN MESYLATE 4 MG TABLET. PO SCH (09:00)
[2020-01-06] MEDS: METOPROLOL TART IMMED RELEASE 50 MG TABLET. PO SCH ×2 (09:00→21:34)
[2020-01-06] MEDS: THIAMINE 100 MG TABLET. PO SCH (09:00)
[2020-01-06] MEDS: MULTIVITAMIN with MINERAL TABLET. PO SCH (09:00)
--- NOTE | 2020-01-06 10:35 | CARD ---
MR#: [id number] Date of Study: 01/06/2020 Ordering Physician: GLO BROWN, Referring Physician: GLO BROWN, Tech: Rama Dorman RDCS APPROVED REPORT EXAM: Two-dimensional and M-mode echocardiogram with Doppler and color Doppler. Other Information Quality : Fair INDICATION Syncope 2D DIMENSIONS Left Atrium(2D)3.0 (1.6-4.0cm)IVSd0.9 (0.7-1.1cm) Aortic Root(2D)3.6 (2.0-3.7cm)LVDd4.1 (3.9-5.9cm) LVOT Diameter2.0 (1.8-2.4cm)PWd1.1 (0.7-1.1cm) LVDs2.3 (2.5-4.0cm)FS (%) 30.0 % SV56.8 mlLVEF(%)60.0 (>50%) Aortic Valve AoV Peak Walt.120.7cm/sAoV VTI21.2cm AO Peak GR.5.8mmHgLVOT Peak Walt.112.5cm/s AO Mean GR.4mmHgAVA (VMAX)3.01cm2 TRACEY (VTI)2.70cm2 Mitral Valve MV E Iqimynna12.5cm/sMV DECEL TFNP463og MV A Kzfbfbpd75.7cm/sE/A Ratio0.6 LEFT VENTRICLE The left ventricle is normal size. There is normal left ventricular wall thickness. The left ventricu lar systolic function is normal and the ejection fraction is within normal range. The Ejection Fracti on is 60-65%. There is normal LV segmental wall motion. Transmitral Doppler flow pattern is Grade I-a bnormal relaxation pattern. RIGHT VENTRICLE The right ventricle is normal size. The right ventricular systolic function is normal. ATRIA The left atrium size is normal. The right atrium size is normal. The interatrial septum is intact wit h no evidence for an atrial septal defect or patent foramen ovale as noted on 2-D or Doppler imaging. AORTIC VALVE The aortic valve is calcified but opens well. Doppler and Color Flow revealed no significant aortic r egurgitation. There is no significant aortic valvular stenosis. MITRAL VALVE The mitral valve is calcified but opens well. There is no evidence of mitral valve prolapse. There is no mitral valve stenosis. Doppler and Color Flow revealed no mitral valve regurgitation noted. TRICUSPID VALVE The tricuspid valve is normal in structure and function. Doppler and Color Flow revealed no tricuspid valve regurgitation noted. There is no tricuspid valve stenosis. PULMONIC VALVE The pulmonic valve is not well visualized. Doppler and Color Flow revealed no pulmonic valvular regur gitation. There is no pulmonic valvular stenosis. GREAT VESSELS The aortic root is normal in size. The ascending aorta is not well seen. The IVC is normal in size an d collapses >50% with inspiration. PERICARDIAL EFFUSION There is no evidence of significant pericardial effusion. Critical Notification Critical Value: No <Conclusion> The left ventricular systolic function is normal and the ejection fraction is within normal range. Th e Ejection Fraction is 60-65%. There is normal LV segmental wall motion. Signed by : José Miguel Groves, Electronically Approved : 01/06/2020 10:32:35
--- NOTE | 2020-01-06 12:26 | PDOC ---
Objective: Objective: D/w nurse - c/o decreased appetite, abdominal pain, and soft stools (though yesterday liquid stool). Vital Signs: Vital Signs Date Time Temp Pulse Resp B/P (MAP) Pulse Ox O2 Delivery O2 Flow Rate FiO2 01/06/20 10:52 99.3 111 19 128/86 (100) 96 Room Air 99.3 Labs: Please see EMR - [facility] failing to load labs currently. PE: no exam A/P: Fever, diarrhea - stool studies unrevealing Pancytopenia/ACD, hypokalemia, hypomagnesemia, hyponatremia Elevated AST and ALT (better - viral Hep panel neg), hepatic steatosis (on CT 12/31) Alcohol overuse -- Seen earlier when [employer] unavailable Out of room for echo, will follow-up. Continue PPI. Justicifation of Admission Dx: Justifications for Admission: Justification of Admission Dx: Yes MAGNUS SCHULTE Jan 06, 2020 12:25
--- NOTE | 2020-01-06 12:43 | PN ---
DATE: 01/06/2020 CHIEF COMPLAINT: Hypotension, renal failure, neuropathy, transaminitis, overdose, alcohol abuse, orthostatic hypotension. HISTORY OF PRESENT ILLNESS: The patient is a pleasant middle-aged male whom we have been following for the past 6 days. Basically, he is having persistent fevers now, although he has gotten through his alcohol withdrawal. Currently being examined on the medical floor. OBJECTIVE: VITAL SIGNS: Stable. Temperature currently is afebrile, but he did have a temperature last night of 102.7. HEART: Distant S1, S2. LUNGS: Clear. ABDOMEN: Soft. EXTREMITIES: No edema. ASSESSMENT: Persistent fevers of unknown origin, hypotension, renal failure, neuropathy, transaminitis, alcohol abuse, orthostasis, congestive heart failure, benign prostatic hypertrophy, nausea, dyspnea, diarrhea, resolving sepsis, hypokalemia. PLAN: IV fluids, IV antibiotics, home meds, DVT prophylaxis, cardiac monitoring. We have several consultants following. We appreciate their input. LESLIE IGLESIAS DO DR: PIETER/solitario JOB#: [id number] / [id number]
[2020-01-06] MEDS: IV NORMAL SALINE 1000ML BAG 1,000 ML IV SCH ×2 (12:44→21:33)
[2020-01-06] MEDS ORDERED: POTASSIUM CHLORIDE 20 MEQ TABLET.ER. PO ONE (13:30)
[2020-01-06] MEDS: SIMETHICONE 80 MG TAB.CHEW PO PRN ×2 (13:58→21:44)
--- NOTE | 2020-01-06 16:41 | NUR ---
SW following. Spoke with RN and reviewed chart. Pt from home and will return at discharge. Pt on room air. Pt COVID results negative. Pt remains on IV abx with a fever. Pt consulted by GI per RN. SW to continue following.
--- NOTE | 2020-01-06 20:00 | PN ---
DATE: 01/06/2020 SUBJECTIVE: The patient states that he has been here for close to a week, but has not seen much improvement, still running some fever, although diarrhea is better. At times, he will have bloody stools. Denies any sinus congestion, sore throat or cough, but does feel cold at times. No problems passing his urine. PHYSICAL EXAMINATION: VITALS: His T-max has been 102.7 but currently is 100.5, pulse 84, respirations 19, blood pressure 129/72, and satting 96% on room air. GENERAL: He is sitting upright in bed. He is cooperative. He is in no acute distress. HEENT: Pupils equal and reactive. He has normal conjunctivae. Oral cavity, pharynx is clear. NECK: Supple. Good range of motion. LUNGS: Clear to auscultation bilaterally. HEART: S1, S2. ABDOMEN: Soft, no guarding, no rebound. EXTREMITIES: Without clubbing or cyanosis. No gross edema. NEUROLOGIC: He is nonfocal. LABORATORY DATA: White count 4, hemoglobin 10.2, platelets of 110, neutrophils 63, lymphs 17. C. diff was negative. COVID negative. Hepatitis all negative. Blood cultures on the 4th are negative. IMPRESSION: 1. Fever, slightly improved, but just switched to Zosyn. 2. Pancytopenia, that is somewhat better. 3. Orthostatic hypotension. 4. Transaminitis. 5. Acute kidney injury that has improved. 6. Hyponatremia. 7. History of alcohol abuse. RECOMMENDATIONS: For now, we will continue the antibiotics, leave the electrolytes per primary. Echo shows left ventricular systolic function normal. EF is normal 60-65%. For now, I will continue the Zosyn. Check a CBC and CMP in the morning. JEFF BRAND MD DR: IZAIAH/solitario JOB#: [id number] / [id number] SOLEDAD
[2020-01-06] MEDS: ENOXAPARIN 40 MG/0.4 ML SYRINGE. SQ SCH (21:34)
[2020-01-07] MEDS: ACETAMINOPHEN 325 MG TABLET. PO PRN ×2 (00:14→21:15)
[2020-01-07] MEDS: PIPERACILLIN/TAZOBACTAM 3.375 GM in IV NORMAL SALINE 50ML 50 ML IV SCH ×4 (00:16→17:51)
[2020-01-07 03:00] VITALS: BP 106/74
[2020-01-07 07:08] LABS: BASO % 1 % (0-3); EOS % 0 % (0-3); HEMATOCRIT 31.6 % (39.0-53.0); LYMPH # 0.7 x10^3/uL (1.0-4.8); LYMPH % 19 % (24-48); MEAN CORPUSCULAR HEMOGLOBIN 30 pg (25-35); MEAN CORPUSCULAR HGB CONC 35 g/dL (31-37); MEAN CORPUSCULAR VOLUME 86 fL (79-100); MONO # 0.8 x10^3/uL (0.0-1.1); MONO % 21 % (0-9); NEUT # 2.1 x10^3/uL (1.8-7.7); NEUT % 59 % (31-73); PLATELET COUNT 145 x10^3/uL (140-400); RED BLOOD COUNT 3.66 x10^6/uL (4.30-5.70); RED CELL DISTRIBUTION WIDTH 13.2 % (11.5-14.5); WHITE BLOOD COUNT 3.6 x10^3/uL (4.0-11.0)
[2020-01-07 07:26] LABS: ALBUMIN 2.8 g/dL (3.4-5.0); ALBUMIN/GLOBULIN RATIO 0.7 (1.0-1.7); CALCIUM 7.7 mg/dL (8.5-10.1); CREATININE 0.9 mg/dL (0.7-1.3); GFR 103.5; TOTAL BILIRUBIN 0.7 mg/dL (0.2-1.0); TOTAL PROTEIN 7.1 g/dL (6.4-8.2)
[2020-01-07 07:28] LABS: POTASSIUM 2.9 mmol/L (3.5-5.1)
[2020-01-07 07:43] VITALS: BP 135/85
[2020-01-07] MEDS ORDERED: POTASSIUM CHLORIDE 20 MEQ TABLET.ER. PO ONE (08:15)
[2020-01-07] MEDS: PANTOPRAZOLE 40 MG TABLET.DR. PO SCH (09:11)
[2020-01-07] MEDS: LACTOBACILLUS RHAMNOSUS GG 1 CAPSULE. PO SCH ×2 (09:11→21:15)
[2020-01-07] MEDS: METOPROLOL TART IMMED RELEASE 50 MG TABLET. PO SCH ×2 (09:11→21:15)
[2020-01-07] MEDS: DOXAZOSIN MESYLATE 4 MG TABLET. PO SCH (09:11)
[2020-01-07] MEDS: IV NORMAL SALINE 1000ML BAG 1,000 ML IV SCH ×2 (09:12→21:16)
--- NOTE | 2020-01-07 09:45 | PDOC ---
Subjective: Subjective: Eating better - was eating about half of meals - got full and didn't like the food but now going to order from the menu. RLQ discomfort - depends on which side he lays on. Diarrhea is the same - says 8-9 stools daily w/ lots of gas. Objective: Objective: Tmax 101.9 Vital Signs: Vital Signs Date Time Temp Pulse Resp B/P (MAP) Pulse Ox O2 Delivery O2 Flow Rate FiO2 01/07/20 09:11 96 135/85 01/07/20 08:00 Room Air 01/07/20 07:43 101.9 18 95 101.9 Labs: Laboratory Tests Test 01/07/20 06:25 White Blood Count 3.6 x10^3/uL Red Blood Count 3.66 x10^6/uL Hemoglobin 11.0 g/dL Hematocrit 31.6 % Mean Corpuscular Volume 86 fL Mean Corpuscular Hemoglobin 30 pg Mean Corpuscular Hemoglobin Concent 35 g/dL Red Cell Distribution Width 13.2 % Platelet Count 145 x10^3/uL Neutrophils (%) (Auto) 59 % Lymphocytes (%) (Auto) 19 % Monocytes (%) (Auto) 21 % Eosinophils (%) (Auto) 0 % Basophils (%) (Auto) 1 % Neutrophils # (Auto) 2.1 x10^3/uL Lymphocytes # (Auto) 0.7 x10^3/uL Monocytes # (Auto) 0.8 x10^3/uL Eosinophils # (Auto) 0.0 x10^3/uL Basophils # (Auto) 0.0 x10^3/uL Sodium Level 133 mmol/L Potassium Level 2.9 mmol/L Chloride Level 97 mmol/L Carbon Dioxide Level 27 mmol/L Anion Gap 9 Blood Urea Nitrogen 4 mg/dL Creatinine 0.9 mg/dL Estimated GFR (Cockcroft-Gault) 103.5 BUN/Creatinine Ratio 4 Glucose Level 98 mg/dL Calcium Level 7.7 mg/dL Total Bilirubin 0.7 mg/dL Aspartate Amino Transf (AST/SGOT) 41 U/L Alanine Aminotransferase (ALT/SGPT) 40 U/L Alkaline Phosphatase 58 U/L Total Protein 7.1 g/dL Albumin 2.8 g/dL Albumin/Globulin Ratio 0.7 BLOOD CULTURE Preliminary NO GROWTH AFTER 2 DAYS Imaging: Echo 01/05 Conclusion> The left ventricular systolic function is normal and the ejection fraction is within normal range. The Ejection Fraction is 60-65%. There is normal LV segmental wall motion. PE: GEN: NAD LUNGS: CTAB HEART: RRR ABD: NABS, soft, non-tender NEURO/PSYCH: A & O 3 A/P: Fever, diarrhea - stool studies and CT 12/31 unrevealing Early satiety (better), RLQ discomfort (positional/?MSK) Pancytopenia/ACD (plt better today), hypokalemia Elevated AST and ALT (resolving - viral Hep panel neg), hepatic steatosis, h/o alcohol overuse -- Try Colestid. Justicifation of Admission Dx: Justifications for Admission: Justification of Admission Dx: Yes MAGNUS SCHULTE Jan 07, 2020 09:45
--- NOTE | 2020-01-07 09:46 | PDOC ---
Infectious Disease Note Subjective Subjective Some better. Appetite a little improved Denies F/C/S/SOa/N/V and stools are loose but less ofter No rash and urinating ok ROS ROS o/w neg Vital Sign Vital Signs Vital Signs Date Time Temp Pulse Resp B/P (MAP) Pulse Ox O2 Delivery O2 Flow Rate FiO2 01/07/20 09:11 96 135/85 01/07/20 08:00 Room Air 01/07/20 07:43 101.9 18 95 101.9 Physical Exam PHYSICAL EXAM GENERAL: He is sitting upright in bed. He is cooperative. He is in no acute distress. Looks well. smiled HEENT: Pupils equal and reactive. He has normal conjunctivae. Oral cavity, pharynx is clear. NECK: Supple. Good range of motion. LUNGS: Clear to auscultation bilaterally. HEART: S1, S2. ABDOMEN: Soft, no guarding, no rebound. EXTREMITIES: Without clubbing or cyanosis. No gross edema. NEUROLOGIC: He is nonfocal. Labs Lab Laboratory Tests Test 01/07/20 06:25 White Blood Count 3.6 x10^3/uL (4.0-11.0) Red Blood Count 3.66 x10^6/uL (4.30-5.70) Hemoglobin 11.0 g/dL (13.0-17.5) Hematocrit 31.6 % (39.0-53.0) Mean Corpuscular Volume 86 fL (79-100) Mean Corpuscular Hemoglobin 30 pg (25-35) Mean Corpuscular Hemoglobin Concent 35 g/dL (31-37) Red Cell Distribution Width 13.2 % (11.5-14.5) Platelet Count 145 x10^3/uL (140-400) Neutrophils (%) (Auto) 59 % (31-73) Lymphocytes (%) (Auto) 19 % (24-48) Monocytes (%) (Auto) 21 % (0-9) Eosinophils (%) (Auto) 0 % (0-3) Basophils (%) (Auto) 1 % (0-3) Neutrophils # (Auto) 2.1 x10^3/uL (1.8-7.7) Lymphocytes # (Auto) 0.7 x10^3/uL (1.0-4.8) Monocytes # (Auto) 0.8 x10^3/uL (0.0-1.1) Eosinophils # (Auto) 0.0 x10^3/uL (0.0-0.7) Basophils # (Auto) 0.0 x10^3/uL (0.0-0.2) Sodium Level 133 mmol/L (136-145) Potassium Level 2.9 mmol/L (3.5-5.1) Chloride Level 97 mmol/L (98-107) Carbon Dioxide Level 27 mmol/L (21-32) Anion Gap 9 (6-14) Blood Urea Nitrogen 4 mg/dL (8-26) Creatinine 0.9 mg/dL (0.7-1.3) Estimated GFR (Cockcroft-Gault) 103.5 BUN/Creatinine Ratio 4 (6-20) Glucose Level 98 mg/dL (70-99) Calcium Level 7.7 mg/dL (8.5-10.1) Total Bilirubin 0.7 mg/dL (0.2-1.0) Aspartate Amino Transf (AST/SGOT) 41 U/L (15-37) Alanine Aminotransferase (ALT/SGPT) 40 U/L (16-63) Alkaline Phosphatase 58 U/L (46-116) Total Protein 7.1 g/dL (6.4-8.2) Albumin 2.8 g/dL (3.4-5.0) Albumin/Globulin Ratio 0.7 (1.0-1.7) Micro Echo shows left ventricular systolic function normal. EF is normal 60-65%. For now, I will continue the Zosyn. Check a CBC and CMP in the morning. Microbiology 01/04/20 Blood Culture - Preliminary, Resulted NO GROWTH AFTER 2 DAYS Objective Assessment 1. Fever, slightly improved, but just switched to Zosyn 01/04 - ? withdrawl depending on ETOH intake or other process 2. Pancytopenia - could ETOH related if routine use, 3. Orthostatic hypotension. 4. Transaminitis - better. 5. Acute kidney injury that has improved. 6. Hyponatremia. 7. History of alcohol abuse Plan Plan of Care For now, we will continue the zosyn. He denies tick exposures or risks for tick electrolytes per primary. Await Heme JEFF Waldrop MD Jan 07, 2020 09:46
[2020-01-07] MEDS: POTASSIUM CHLORIDE 20 MEQ TABLET.ER. PO SCH (11:00)
[2020-01-07 11:21] VITALS: BP 110/69
--- NOTE | 2020-01-07 11:55 | PDOC ---
[employer] [facility] PROGRESS NOTE Chief Complaint Chief Complaint Hypotension acute renal failure, vasomotor nephropathy transaminitis, overuse of alcohol, stopped 3 days ago when he started feeling poolry orthostatic hypotension, dry, dehydrated htn, chronic diastolic CHF BPH dyspnea, weakness, diarrhea, poss infectious, would be sepsis, Hypokalemia History of Present Illness History of Present Illness 01/07/2020 Patient seen and examined Chart reviewed Discussed with RN 01/05/2020 Patient seen and examined Chart reviewed Discussed with RN He is having low-grade fevers We are going to consult infectious disease for second opinion He is on Flagyl and Cipro currently Still having some diarrhea Complains of some abdominal pain 01/04/2020 Patient seen and examined He is alert but appears weak Discussed with RN Chart reviewed Gave order for potassium replaced 01/03/2020 Patient seen and examined Discussed with RN Chart reviewed Vitals/I&O Vitals/I&O: Vital Signs Date Time Temp Pulse Resp B/P (MAP) Pulse Ox O2 Delivery O2 Flow Rate FiO2 01/07/20 11:21 100.1 83 22 110/69 (83) 94 Room Air 100.1 I & O 01/06/20 01/06/20 01/07/20 15:00 23:00 07:00 Intake Total 650 ml 300 ml 500 ml Output Total 600 ml 600 ml Balance 50 ml 300 ml -100 ml Physical Exam Physical Exam: GENERAL: He is sitting upright in bed. He is cooperative. He is in no acute distress. Looks well. smiled HEENT: Pupils equal and reactive. He has normal conjunctivae. Oral cavity, pharynx is clear. NECK: Supple. Good range of motion. LUNGS: Clear to auscultation bilaterally. HEART: S1, S2. ABDOMEN: Soft, no guarding, no rebound. EXTREMITIES: Without clubbing or cyanosis. No gross edema. NEUROLOGIC: He is nonfocal. General: mild distress Heart: Regular rate Lungs: Clear Abdomen: Normal bowel sounds, Soft Extremities: No edema Skin: No rashes, No breakdown Labs Labs: Laboratory Tests Test 01/07/20 06:25 White Blood Count 3.6 x10^3/uL (4.0-11.0) Red Blood Count 3.66 x10^6/uL (4.30-5.70) Hemoglobin 11.0 g/dL (13.0-17.5) Hematocrit 31.6 % (39.0-53.0) Mean Corpuscular Volume 86 fL (79-100) Mean Corpuscular Hemoglobin 30 pg (25-35) Mean Corpuscular Hemoglobin Concent 35 g/dL (31-37) Red Cell Distribution Width 13.2 % (11.5-14.5) Platelet Count 145 x10^3/uL (140-400) Neutrophils (%) (Auto) 59 % (31-73) Lymphocytes (%) (Auto) 19 % (24-48) Monocytes (%) (Auto) 21 % (0-9) Eosinophils (%) (Auto) 0 % (0-3) Basophils (%) (Auto) 1 % (0-3) Neutrophils # (Auto) 2.1 x10^3/uL (1.8-7.7) Lymphocytes # (Auto) 0.7 x10^3/uL (1.0-4.8) Monocytes # (Auto) 0.8 x10^3/uL (0.0-1.1) Eosinophils # (Auto) 0.0 x10^3/uL (0.0-0.7) Basophils # (Auto) 0.0 x10^3/uL (0.0-0.2) Sodium Level 133 mmol/L (136-145) Potassium Level 2.9 mmol/L (3.5-5.1) Chloride Level 97 mmol/L (98-107) Carbon Dioxide Level 27 mmol/L (21-32) Anion Gap 9 (6-14) Blood Urea Nitrogen 4 mg/dL (8-26) Creatinine 0.9 mg/dL (0.7-1.3) Estimated GFR (Cockcroft-Gault) 103.5 BUN/Creatinine Ratio 4 (6-20) Glucose Level 98 mg/dL (70-99) Calcium Level 7.7 mg/dL (8.5-10.1) Total Bilirubin 0.7 mg/dL (0.2-1.0) Aspartate Amino Transf (AST/SGOT) 41 U/L (15-37) Alanine Aminotransferase (ALT/SGPT) 40 U/L (16-63) Alkaline Phosphatase 58 U/L (46-116) Total Protein 7.1 g/dL (6.4-8.2) Albumin 2.8 g/dL (3.4-5.0) Albumin/Globulin Ratio 0.7 (1.0-1.7) Procalcitonin < 0.10 ng/mL (0.00-0.10) Assessment and Plan Assessmemt and Plan Problems Medical Problems: (1) Orthostatic hypotension Status: Acute (2) Person under investigation for COVID-19 Status: Acute Hypotension acute renal failure, vasomotor nephropathy transaminitis, overuse of alcohol, stopped 3 days ago when he started feeling poolry orthostatic hypotension, dry, dehydrated htn, chronic diastolic CHF BPH dyspnea, weakness, diarrhea, poss infectious, would be sepsis 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 Medications: Current Medications Medications (Trade) Dose Ordered Sig/Rosa Maria Route PRN Reason Start Time Stop Time Status Last Admin Dose Admin Simethicone (Gas-X) 80 mg PRN AFTMEALHC PRN PO GAS / BLOATING 01/06/20 13:15 01/06/20 21:44 Potassium Chloride (Klor-Con) 40 meq 1X ONCE PO 01/06/20 13:30 01/06/20 13:32 DC 01/06/20 13:57 Potassium Chloride (Klor-Con) 40 meq 1X ONCE PO 01/07/20 08:15 01/07/20 08:16 DC 01/07/20 09:11 Justicifation of Admission Dx: Justifications for Admission: Justification of Admission Dx: Yes LESLIE IGLESIAS III DO Jan 07, 2020 11:54
--- NOTE | 2020-01-07 14:14 | NUR ---
SW following. Spoke with RN and reviewed chart. Pt from home and will return at discharge. Pt consulted by hematology and has critical potassium levels per RN. SW to continue following.
[2020-01-07 15:09] VITALS: BP 110/76
[2020-01-07] MEDS: LIPASE/PROTEAS/AMYLAS 10/32/42 CAPSULE.DR. PO SCH (17:52)
[2020-01-07 19:56] VITALS: BP 160/85
[2020-01-07] MEDS: ENOXAPARIN 40 MG/0.4 ML SYRINGE. SQ SCH (21:14)
[2020-01-07] MEDS: CALCIUM CARBONATE 500 MG TAB.CHEW PO PRN (21:15)
[2020-01-07 23:27] VITALS: BP 102/59
[2020-01-08] MEDS: COLESTIPOL HCL 1 GM TABLET PO SCH ×3 (00:10→21:57)
[2020-01-08] MEDS: PIPERACILLIN/TAZOBACTAM 3.375 GM in IV NORMAL SALINE 50ML 50 ML IV SCH ×4 (00:11→17:51)
[2020-01-08 03:28] VITALS: BP 121/84
[2020-01-08] MEDS: IV NORMAL SALINE 1000ML BAG 1,000 ML IV SCH ×2 (04:00→16:04)
[2020-01-08 04:49] LABS: BASO % 1 % (0-3); EOS % 1 % (0-3); HEMATOCRIT 32.1 % (39.0-53.0); HEMOGLOBIN 11.2 g/dL (13.0-17.5); LYMPH # 0.7 x10^3/uL (1.0-4.8); LYMPH % 23 % (24-48); MEAN CORPUSCULAR HEMOGLOBIN 30 pg (25-35); MEAN CORPUSCULAR HGB CONC 35 g/dL (31-37); MEAN CORPUSCULAR VOLUME 86 fL (79-100); MONO # 0.7 x10^3/uL (0.0-1.1); MONO % 22 % (0-9); NEUT # 1.7 x10^3/uL (1.8-7.7); NEUT % 54 % (31-73); PLATELET COUNT 177 x10^3/uL (140-400); RED BLOOD COUNT 3.73 x10^6/uL (4.30-5.70); RED CELL DISTRIBUTION WIDTH 13.7 % (11.5-14.5); WHITE BLOOD COUNT 3.1 x10^3/uL (4.0-11.0)
[2020-01-08 07:42] VITALS: BP 119/71
[2020-01-08] MEDS: LIPASE/PROTEAS/AMYLAS 10/32/42 CAPSULE.DR. PO SCH ×3 (09:17→17:50)
--- NOTE | 2020-01-08 09:17 | PDOC ---
Infectious Disease Note Subjective Subjective Some better. Appetite a little improved Denies F/C/S/SOa/N/V and stools are loose but less often No rash and urinating ok ROS ROS o/w neg Vital Sign Vital Signs Vital Signs Date Time Temp Pulse Resp B/P (MAP) Pulse Ox O2 Delivery O2 Flow Rate FiO2 01/08/20 07:42 98.9 87 17 119/71 (87) 96 Room Air 98.9 Physical Exam PHYSICAL EXAM GENERAL: He is sitting upright in bed. He is cooperative. He is in no acute distress. Looks well. smiled HEENT: Pupils equal and reactive. He has normal conjunctivae. Oral cavity, pharynx is clear. NECK: Supple. Good range of motion. LUNGS: Clear to auscultation bilaterally. HEART: S1, S2. ABDOMEN: Soft, no guarding, no rebound. EXTREMITIES: Without clubbing or cyanosis. No gross edema. NEUROLOGIC: He is nonfocal. Labs Lab Laboratory Tests Test 01/08/20 03:55 White Blood Count 3.1 x10^3/uL (4.0-11.0) Red Blood Count 3.73 x10^6/uL (4.30-5.70) Hemoglobin 11.2 g/dL (13.0-17.5) Hematocrit 32.1 % (39.0-53.0) Mean Corpuscular Volume 86 fL (79-100) Mean Corpuscular Hemoglobin 30 pg (25-35) Mean Corpuscular Hemoglobin Concent 35 g/dL (31-37) Red Cell Distribution Width 13.7 % (11.5-14.5) Platelet Count 177 x10^3/uL (140-400) Neutrophils (%) (Auto) 54 % (31-73) Lymphocytes (%) (Auto) 23 % (24-48) Monocytes (%) (Auto) 22 % (0-9) Eosinophils (%) (Auto) 1 % (0-3) Basophils (%) (Auto) 1 % (0-3) Neutrophils # (Auto) 1.7 x10^3/uL (1.8-7.7) Lymphocytes # (Auto) 0.7 x10^3/uL (1.0-4.8) Monocytes # (Auto) 0.7 x10^3/uL (0.0-1.1) Eosinophils # (Auto) 0.0 x10^3/uL (0.0-0.7) Basophils # (Auto) 0.0 x10^3/uL (0.0-0.2) Micro Echo shows left ventricular systolic function normal. EF is normal 60-65%. For now, I will continue the Zosyn. Check a CBC and CMP in the morning. Microbiology 01/04/20 Blood Culture - Preliminary, Resulted NO GROWTH AFTER 2 DAYS Objective Assessment 1. Fever, slightly improved, but just switched to Zosyn 01/04 - ? withdrawl depending on ETOH intake or other process. Nml Procalcitonin 2. Pancytopenia - could ETOH related if routine use, Platelets better but has monocytosis and leukopenia 3. Orthostatic hypotension. 4. Transaminitis - better. 5. Acute kidney injury that has improved. 6. Hyponatremia. 7. History of alcohol abuse 8. Loose stool - C-diff neg 01/01 Plan Plan of Care For now, we will continue the zosyn. He denies tick exposures or risks for tick electrolytes per primary. Await Heme JEFF Waldrop MD Jan 08, 2020 09:17
[2020-01-08] MEDS: POTASSIUM CHLORIDE 20 MEQ TABLET.ER. PO SCH (09:18)
[2020-01-08] MEDS: DOXAZOSIN MESYLATE 4 MG TABLET. PO SCH (09:18)
[2020-01-08] MEDS: LACTOBACILLUS RHAMNOSUS GG 1 CAPSULE. PO SCH ×2 (09:18→21:54)
[2020-01-08] MEDS: METOPROLOL TART IMMED RELEASE 50 MG TABLET. PO SCH ×2 (09:19→21:55)
[2020-01-08] MEDS: PANTOPRAZOLE 40 MG TABLET.DR. PO SCH (09:19)
[2020-01-08 11:24] VITALS: BP 131/86
--- NOTE | 2020-01-08 11:55 | PDOC ---
[employer] PROGRESS NOTE Chief Complaint Chief Complaint Hypotension acute renal failure, vasomotor nephropathy transaminitis, overuse of alcohol, stopped 3 days ago when he started feeling poolry orthostatic hypotension, dry, dehydrated htn, chronic diastolic CHF BPH dyspnea, weakness, diarrhea, poss infectious, would be sepsis, Hypokalemia History of Present Illness History of Present Illness 01/08/2020 Patient seen and examined Chart reviewed Discussed with RN He still having fevers 01/07/2020 Patient seen and examined Chart reviewed Discussed with RN 01/05/2020 Patient seen and examined Chart reviewed Discussed with RN He is having low-grade fevers We are going to consult infectious disease for second opinion He is on Flagyl and Cipro currently Still having some diarrhea Complains of some abdominal pain 01/04/2020 Patient seen and examined He is alert but appears weak Discussed with RN Chart reviewed Gave order for potassium replaced 01/03/2020 Patient seen and examined Discussed with RN Chart reviewed Vitals/I&O Vitals/I&O: Vital Signs Date Time Temp Pulse Resp B/P (MAP) Pulse Ox O2 Delivery O2 Flow Rate FiO2 01/08/20 11:24 99.5 83 18 131/86 (101) 99 Room Air 99.5 I & O 01/07/20 01/07/20 01/08/20 15:00 23:00 07:00 Intake Total 380 ml 300 ml 400 ml Output Total 400 ml 200 ml Balance 380 ml -100 ml 200 ml Physical Exam Physical Exam: GENERAL: He is sitting upright in bed. He is cooperative. He is in no acute distress. Looks well. smiled HEENT: Pupils equal and reactive. He has normal conjunctivae. Oral cavity, pharynx is clear. NECK: Supple. Good range of motion. LUNGS: Clear to auscultation bilaterally. HEART: S1, S2. ABDOMEN: Soft, no guarding, no rebound. EXTREMITIES: Without clubbing or cyanosis. No gross edema. NEUROLOGIC: He is nonfocal. General: mild distress Heart: Regular rate Lungs: Clear Abdomen: Normal bowel sounds, Soft Extremities: No edema Skin: No rashes, No breakdown Labs Labs: Laboratory Tests Test 01/08/20 03:55 White Blood Count 3.1 x10^3/uL (4.0-11.0) Red Blood Count 3.73 x10^6/uL (4.30-5.70) Hemoglobin 11.2 g/dL (13.0-17.5) Hematocrit 32.1 % (39.0-53.0) Mean Corpuscular Volume 86 fL (79-100) Mean Corpuscular Hemoglobin 30 pg (25-35) Mean Corpuscular Hemoglobin Concent 35 g/dL (31-37) Red Cell Distribution Width 13.7 % (11.5-14.5) Platelet Count 177 x10^3/uL (140-400) Neutrophils (%) (Auto) 54 % (31-73) Lymphocytes (%) (Auto) 23 % (24-48) Monocytes (%) (Auto) 22 % (0-9) Eosinophils (%) (Auto) 1 % (0-3) Basophils (%) (Auto) 1 % (0-3) Neutrophils # (Auto) 1.7 x10^3/uL (1.8-7.7) Lymphocytes # (Auto) 0.7 x10^3/uL (1.0-4.8) Monocytes # (Auto) 0.7 x10^3/uL (0.0-1.1) Eosinophils # (Auto) 0.0 x10^3/uL (0.0-0.7) Basophils # (Auto) 0.0 x10^3/uL (0.0-0.2) Assessment and Plan Assessmemt and Plan Problems Medical Problems: (1) Orthostatic hypotension Status: Acute (2) Person under investigation for COVID-19 Status: Acute Hypotension Fevers acute renal failure, vasomotor nephropathy transaminitis, overuse of alcohol, stopped 3 days ago when he started feeling poolry orthostatic hypotension, dry, dehydrated htn, chronic diastolic CHF BPH dyspnea, weakness, diarrhea, poss infectious, would be sepsis 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 Medications: Current Medications Medications (Trade) Dose Ordered Sig/Rosa Maria Route PRN Reason Start Time Stop Time Status Last Admin Dose Admin Colestipol HCl (Colestid) 1 gm BID@10,22 PO 01/07/20 22:00 01/08/20 09:18 Amylase/Lipase/ Protease (Zenpep 10,000) 2 cap TIDWMEALS PO 01/07/20 17:00 01/08/20 09:17 Justicifation of Admission Dx: Justifications for Admission: Justification of Admission Dx: Yes LESLIE IGLESIAS III DO Jan 08, 2020 11:55
--- NOTE | 2020-01-08 12:16 | NUR ---
SW following. Reviewed chart and spoke with RN. Spoke with pt who stated he lives alone in [facility] and stated no needs at discharge. Pt remains on room air and IV abx. Spoke with Dr. Ayala. Pt will likely discharge tomorrow, 01/09/2020 pending temp. SW to continue following.
--- NOTE | 2020-01-08 13:14 | PDOC ---
Subjective: Subjective: Diarrhea is better - "it's mostly gas." Eating better. Objective: Objective: Tmax 101.3. Vital Signs: Vital Signs Date Time Temp Pulse Resp B/P (MAP) Pulse Ox O2 Delivery O2 Flow Rate FiO2 01/08/20 11:24 99.5 83 18 131/86 (101) 99 Room Air 99.5 Labs: Laboratory Tests Test 01/08/20 03:55 White Blood Count 3.1 x10^3/uL Red Blood Count 3.73 x10^6/uL Hemoglobin 11.2 g/dL Hematocrit 32.1 % Mean Corpuscular Volume 86 fL Mean Corpuscular Hemoglobin 30 pg Mean Corpuscular Hemoglobin Concent 35 g/dL Red Cell Distribution Width 13.7 % Platelet Count 177 x10^3/uL Neutrophils (%) (Auto) 54 % Lymphocytes (%) (Auto) 23 % Monocytes (%) (Auto) 22 % Eosinophils (%) (Auto) 1 % Basophils (%) (Auto) 1 % Neutrophils # (Auto) 1.7 x10^3/uL Lymphocytes # (Auto) 0.7 x10^3/uL Monocytes # (Auto) 0.7 x10^3/uL Eosinophils # (Auto) 0.0 x10^3/uL Basophils # (Auto) 0.0 x10^3/uL PE: GEN: NAD, watching tv LUNGS: CTAB HEART: RRR ABD: NABS, S/ND/NT NEURO/PSYCH: A & O 3 A/P: Fever Early satiety - better, on PPI Diarrhea - better w/ Colestid and Zenpep Pancytopenia/ACD - heme opinion pending Hypokalemia - per Dr. Ayala Elevated AST and ALT (improved) - viral Hep panel neg), hepatic steatosis, h/o alcohol overuse -- Diarrhea and appetite improving, continue same per GI. Justicifation of Admission Dx: Justifications for Admission: Justification of Admission Dx: Yes MAGNUS SCHULTE Jan 08, 2020 13:14
--- NOTE | 2020-01-08 14:27 | PDOC2 ---
CONSULT Date of Consult Date of Consult DATE: 01/08/20 TIME: 13:56 Reason for Consult Reason for Consult: Pancytopenia. Referring Physician Referring Physician: THERESE Geiger. Identification/Chief Complaint Chief Complaint Abdominal pain and diarrhea. Source Source: Chart review, Patient History of Present Illness Reason for Visit: Mr. Logan Romano is a 64 year-old male who was sent to [facility] by primary care at [facility] on 01/01/2020 for increased shortness of breath, abdominal pain, diaphoresis, nausea, diarrhea, and fever x 3 days. 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 He denied outdoor activities, tick bites or rash. At primary care clinic, he was noted to have low blood pressure in the 80s and had a near syncopal episode. Upon presentation to [facility], he was ambulatory with a steady gait. He denied chest pain or shortness of breath. CT abdomen/pelvis on 01/01/2020 showed diffuse hepatic steatosis, otherwise no acute process. He was started on ciprofloxacin and metronidazole. Clostridium difficile and stool studies were negative. Since admission, the patient had been running fevers, T-max 102.8. No fevers since 01/07/2020. Blood cultures from the 4th were negative. Metronidazole was switched to Zosyn on 01/05/2020. Logan is being seen in consultation today at the request of THERESE Hennessy, and Dr. Tracy Ayala. Today, Logan is being seen via Telehealth. Reports he is feeling better. Reports pain in mid-abdomen. States he has not been sexually active for "at least 10 years". Denies any recent surgeries or recent IV access. "When I pass gas I have to go sit on the toilet, otherwise I will have an accident in my [place]." Difficulty with BM's x 2 weeks prior to admission. Past Medical History Cardiovascular: HTN Hepatobiliary: No pertinent hx Psych: No pertinent hx Musculoskeletal: low back pain, Osteoarthritis (marked left 3rd finger change, ) Endocrine: No pertinent hx Dermatology: No pertinent hx Past Surgical History Past Surgical History: Other Family History Family History: High Cholestrol, Hypertension Social History <1 pack per day (1 pint of gin daily) ALCOHOL: heavy (1 pint of gin daily.) Drugs: Marijuana Current Problem List Problem List Problems Medical Problems: (1) Orthostatic hypotension Status: Acute (2) Person under investigation for COVID-19 Status: Acute Current Medications Current Medications Current Medications Sodium Chloride 1,000 ml @ 1,000 mls/hr Q1H IV Last administered on 01/01/20at 15:59; Start 01/01/20 at 15:18; Stop 01/01/20 at 16:17; Status DC Sodium Chloride 1,000 ml @ 1,000 mls/hr 1X ONCE IV Last administered on 01/01/20at 15:59; Start 01/01/20 at 16:30; Stop 01/01/20 at 17:29; Status DC Sodium Chloride 1,000 ml @ 1,000 mls/hr 1X ONCE IV Last administered on 01/01/20at 18:52; Start 01/01/20 at 18:30; Stop 01/01/20 at 19:29; Status DC Ondansetron HCl (Zofran) 4 mg PRN Q8HRS PRN IV NAUSEA/VOMITING Last administered on 01/01/20at 21:57; Start 01/01/20 at 19:30; Stop 01/02/20 at 19:29; Status DC Acetaminophen (Tylenol) 650 mg PRN Q4HRS PRN PO FEVER > 100.3'F Last administered on 01/01/20at 21:57; Start 01/01/20 at 19:30; Stop 01/02/20 at 19:29; Status DC Doxazosin Mesylate (Cardura) 4 mg DAILY PO Last administered on 01/08/20at 09:18; Start 01/02/20 at 09:00 Multivitamins (Thera M Plus) 1 tab DAILY PO Last administered on 01/05/20 08:21; Start 01/04/20 at 09:00; Stop 01/06/20 at 12:11; Status DC Metoprolol Tartrate (Lopressor) 100 mg BID PO Last administered on 01/08/20 09:19; Start 01/01/20 at 21:00 Folic Acid (Folic Acid) 1 mg DAILY PO Last administered on 01/05/20 08:21; Start 01/04/20 at 09:00; Stop 01/06/20 at 12:11; Status DC Enoxaparin Sodium (Lovenox Per Pharmacy Prophylaxis Dosing) 1 each PRN DAILY PRN MC SEE COMMENTS; Start 01/01/20 at 19:45 Multivitamins 10 ml/Thiamine HCl 100 mg/Folic Acid 1 mg/Sodium Chloride 1,011.2 ml @ 100 mls/ hr DAILY IV Last administered on 01/03/20at 08:40; Start 01/02/20 at 09:00; Stop 01/04/20 at 08:59; Status DC Lorazepam (Ativan Inj) 2 mg PRN Q1HR PRN IV For CIWA 8-14 Last administered on 01/03/20at 08:44; Start 01/01/20 at 19:45 Lorazepam (Ativan Inj) 4 mg PRN Q1HR PRN IV For CIWA 15 or greater; Start 01/01/20 at 19:45 Enoxaparin Sodium (Lovenox 40mg Syringe) 40 mg Q24H SQ Last administered on 01/07/20at 21:14; Start 01/01/20 at 21:00 Sodium Chloride 1,000 ml @ 100 mls/hr Q10H IV Last administered on 01/07/20at 21:16; Start 01/01/20 at 22:00 Zolpidem Tartrate (Ambien) 5 mg PRN QHS PRN PO INSOMNIA Last administered on 01/01/20at 22:03; Start 01/01/20 at 21:45 Potassium Chloride (Klor-Con) 40 meq 1X ONCE PO Last administered on 01/02/20at 05:33; Start 01/02/20 at 05:30; Stop 01/02/20 at 05:31; Status DC Potassium Chloride (Klor-Con) 40 meq 1X ONCE PO Last administered on 01/02/20at 10:44; Start 01/02/20 at 11:00; Stop 01/02/20 at 11:01; Status DC Sodium Chloride 1,000 ml @ 1,000 mls/hr 1X ONCE IV Last administered on 01/02/20at 13:01; Start 01/02/20 at 11:00; Stop 01/02/20 at 11:59; Status DC Magnesium Sulfate 100 ml @ 25 mls/hr 1X ONCE IV Last administered on 01/02/20at 13:00; Start 01/02/20 at 11:00; Stop 01/02/20 at 14:59; Status DC Metronidazole (Flagyl) 500 mg Q8HRS PO Last administered on 01/05/20 15:51; Start 01/02/20 at 22:00; Stop 01/05/20 at 16:56; Status DC Metronidazole (Flagyl) 500 mg 1X ONCE PO Last administered on 01/02/20at 17:44; Start 01/02/20 at 16:00; Stop 01/02/20 at 16:01; Status DC Ciprofloxacin (Cipro) 500 mg BID PO Last administered on 01/05/20 08:21; Start 01/02/20 at 16:00; Stop 01/05/20 at 16:56; Status DC Pantoprazole Sodium (Protonix) 40 mg DAILYAC PO Last administered on 01/08/20 09:19; Start 01/02/20 at 17:00 Calcium Carbonate/ Glycine (Tums) 500 mg PRN AFTMEALHC PRN PO INDIGESTION Last administered on 01/07/20 21:15; Start 01/02/20 at 16:30 Acetaminophen (Tylenol) 650 mg PRN Q6HRS PRN PO FEVER > 100.3'F Last administered on 01/07/20 21:15; Start 01/02/20 at 23:30 Potassium Chloride (Klor-Con) 40 meq 1X ONCE PO Last administered on 01/03/20 06:24; Start 01/03/20 at 06:30; Stop 01/03/20 at 06:31; Status DC Lactobacillus Rhamnosus (Culturelle) 1 cap BID PO Last administered on 01/08/20 09:18; Start 01/03/20 at 21:00 Thiamine Mononitrate (Vitamin B-1) 100 mg DAILY PO Last administered on 01/05/20 08:20; Start 01/04/20 at 09:00; Stop 01/06/20 at 12:11; Status DC Potassium Chloride (Klor-Con) 40 meq 1X ONCE PO Last administered on 01/04/20at 12:06; Start 01/04/20 at 12:00; Stop 01/04/20 at 12:01; Status DC Potassium Chloride (Klor-Con) 40 meq 1X ONCE PO Last administered on 01/04/20at 16:41; Start 01/04/20 at 16:00; Stop 01/04/20 at 16:01; Status DC Magnesium Sulfate 100 ml @ 25 mls/hr 1X ONCE IV Last administered on 01/04/20at 14:27; Start 01/04/20 at 14:00; Stop 01/04/20 at 17:59; Status DC Piperacillin Sod/ Tazobactam Sod 3.375 gm/Sodium Chloride 50 ml @ 100 mls/hr Q6HRS IV Last administered on 01/08/20at 12:08; Start 01/05/20 at 18:00 Simethicone (Gas-X) 80 mg PRN AFTMEALHC PRN PO GAS / BLOATING Last administered on 01/06/20at 21:44; Start 01/06/20 at 13:15 Potassium Chloride (Klor-Con) 40 meq 1X ONCE PO Last administered on 01/06/20at 13:57; Start 01/06/20 at 13:30; Stop 01/06/20 at 13:32; Status DC Potassium Chloride (Klor-Con) 40 meq 1X ONCE PO Last administered on 01/07/20at 09:11; Start 01/07/20 at 08:15; Stop 01/07/20 at 08:16; Status DC Potassium Chloride (Klor-Con) 40 meq DAILY PO Last administered on 01/08/20at 09:18; Start 01/07/20 at 11:00 Colestipol HCl (Colestid) 1 gm BID@10,22 PO Last administered on 01/08/20at 09:18; Start 01/07/20 at 22:00 Amylase/Lipase/ Protease (Zenpep 10,000) 2 cap TIDWMEALS PO Last administered on 01/08/20at 12:08; Start 01/07/20 at 17:00 Active Scripts Active [Folic Acid] 1 MG Tablet 1 Mg PO DAILY 30 Days Thera-M Tablet (Multivits,Ca,Minerals/Iron/Fa) 1 Each Tablet 1 Tab PO DAILY 30 Days Reported Metoprolol Tartrate 100 Mg Tablet 1 Tab PO BID Amlodipine Besylate 5 Mg Tablet 5 Mg PO DAILY Doxazosin Mesylate 4 Mg Tablet 1 Tab PO DAILY Lisinopril 40 Mg Tablet 1 Tab PO DAILY Allergies Allergies: Coded Allergies: No Known Drug Allergies (Unverified , 04/03/15) ROS General: YES: Fatigue, Malaise, Appetite Eyes: Yes Decreased vision HEENT: YES: Sneezing Hematological and Lymphatic: YES: Brusing, Pallor ENDOCRINE: YES: Malaise/lethargy Gastrointestinal: Yes Nausea, Yes Abdominal Pain, Yes Diarrhea Musculoskeletal: Yes Muscular Weakness Neurological: Yes Weakness Physical Exam General: Alert, Oriented X3, Cooperative, No acute distress HEENT: Atraumatic, PERRLA, EOMI Lungs: Clear to auscultation Heart: Regular rate Abdomen: Normal bowel sounds, Other (Tender with palpation in mid abdomen.) Extremities: No clubbing MUSCULOSKELETAL: No joint tenderness, No muscular tenderness noted, Full range of motion without pain Vitals VITALS Vital Signs Date Time Temp Pulse Resp B/P (MAP) Pulse Ox O2 Delivery O2 Flow Rate FiO2 01/08/20 11:24 99.5 83 18 131/86 (101) 99 Room Air 99.5 Labs Labs Laboratory Tests Test 01/07/20 06:25 01/08/20 03:55 White Blood Count 3.6 x10^3/uL (4.0-11.0) 3.1 x10^3/uL (4.0-11.0) Red Blood Count 3.66 x10^6/uL (4.30-5.70) 3.73 x10^6/uL (4.30-5.70) Hemoglobin 11.0 g/dL (13.0-17.5) 11.2 g/dL (13.0-17.5) Hematocrit 31.6 % (39.0-53.0) 32.1 % (39.0-53.0) Mean Corpuscular Volume 86 fL (79-100) 86 fL (79-100) Mean Corpuscular Hemoglobin 30 pg (25-35) 30 pg (25-35) Mean Corpuscular Hemoglobin Concent 35 g/dL (31-37) 35 g/dL (31-37) Red Cell Distribution Width 13.2 % (11.5-14.5) 13.7 % (11.5-14.5) Platelet Count 145 x10^3/uL (140-400) 177 x10^3/uL (140-400) Neutrophils (%) (Auto) 59 % (31-73) 54 % (31-73) Lymphocytes (%) (Auto) 19 % (24-48) 23 % (24-48) Monocytes (%) (Auto) 21 % (0-9) 22 % (0-9) Eosinophils (%) (Auto) 0 % (0-3) 1 % (0-3) Basophils (%) (Auto) 1 % (0-3) 1 % (0-3) Neutrophils # (Auto) 2.1 x10^3/uL (1.8-7.7) 1.7 x10^3/uL (1.8-7.7) Lymphocytes # (Auto) 0.7 x10^3/uL (1.0-4.8) 0.7 x10^3/uL (1.0-4.8) Monocytes # (Auto) 0.8 x10^3/uL (0.0-1.1) 0.7 x10^3/uL (0.0-1.1) Eosinophils # (Auto) 0.0 x10^3/uL (0.0-0.7) 0.0 x10^3/uL (0.0-0.7) Basophils # (Auto) 0.0 x10^3/uL (0.0-0.2) 0.0 x10^3/uL (0.0-0.2) Sodium Level 133 mmol/L (136-145) Potassium Level 2.9 mmol/L (3.5-5.1) Chloride Level 97 mmol/L (98-107) Carbon Dioxide Level 27 mmol/L (21-32) Anion Gap 9 (6-14) Blood Urea Nitrogen 4 mg/dL (8-26) Creatinine 0.9 mg/dL (0.7-1.3) Estimated GFR (Cockcroft-Gault) 103.5 BUN/Creatinine Ratio 4 (6-20) Glucose Level 98 mg/dL (70-99) Calcium Level 7.7 mg/dL (8.5-10.1) Total Bilirubin 0.7 mg/dL (0.2-1.0) Aspartate Amino Transf (AST/SGOT) 41 U/L (15-37) Alanine Aminotransferase (ALT/SGPT) 40 U/L (16-63) Alkaline Phosphatase 58 U/L (46-116) Total Protein 7.1 g/dL (6.4-8.2) Albumin 2.8 g/dL (3.4-5.0) Albumin/Globulin Ratio 0.7 (1.0-1.7) Procalcitonin < 0.10 ng/mL (0.00-0.10) Laboratory Tests Test 01/08/20 03:55 White Blood Count 3.1 x10^3/uL (4.0-11.0) Red Blood Count 3.73 x10^6/uL (4.30-5.70) Hemoglobin 11.2 g/dL (13.0-17.5) Hematocrit 32.1 % (39.0-53.0) Mean Corpuscular Volume 86 fL (79-100) Mean Corpuscular Hemoglobin 30 pg (25-35) Mean Corpuscular Hemoglobin Concent 35 g/dL (31-37) Red Cell Distribution Width 13.7 % (11.5-14.5) Platelet Count 177 x10^3/uL (140-400) Neutrophils (%) (Auto) 54 % (31-73) Lymphocytes (%) (Auto) 23 % (24-48) Monocytes (%) (Auto) 22 % (0-9) Eosinophils (%) (Auto) 1 % (0-3) Basophils (%) (Auto) 1 % (0-3) Neutrophils # (Auto) 1.7 x10^3/uL (1.8-7.7) Lymphocytes # (Auto) 0.7 x10^3/uL (1.0-4.8) Monocytes # (Auto) 0.7 x10^3/uL (0.0-1.1) Eosinophils # (Auto) 0.0 x10^3/uL (0.0-0.7) Basophils # (Auto) 0.0 x10^3/uL (0.0-0.2) Images Images 01/01/2020 CT of abdomen and pelvis without contrast INDICATION: Nausea, fever, elevated LFTs Comparisons: None Heart size is normal. No pericardial effusion. Visualized lung bases are clear. No pleural effusion. Evaluation of the solid organs is limited secondary to noncontrast technique. Diffuse hepatic steatosis. Spleen, pancreas, gallbladder and adrenals are unremarkable. No perinephric inflammation or hydronephrosis. No renal or ureteral calculi are identified. Bladder is decompressed not well evaluated. Prostate is not enlarged. Large and small bowel are unremarkable. Appendix is not definitively identified. No free intra-abdominal air or fluid. No obstruction. Abdominal aorta has a normal course and caliber. No enlarged abdominal lymph nodes are identified. No suspicious osseous lesions or acute fractures. IMPRESSION: 1. Diffuse hepatic steatosis. 2. Otherwise, no acute process identified within the abdomen or pelvis. 01/01/2020 PORTABLE CHEST 1V Clinical Indication: Reason: SOA Comparison: AP chest, October 04, 2019. The cardiomediastinal silhouette is normal. Lungs are clear. There is no pneumothorax. No pleural effusion is appreciated. No acute bone abnormality. Bilateral AC arthropathy. IMPRESSION: No acute cardiopulmonary process. 10/04/2019 AP portable chest radiograph 10/04/2019 Clinical History: Weakness. An AP erect portable digital radiograph of the chest was obtained. Comparison study is dated 07/05/2018. The cardiac silhouette is borderline enlarged. The thoracic aorta is mildly tortuous. No acute pulmonary infiltrate is seen. No pleural effusion or pneumothorax is noted. Degenerative changes are seen involving the thoracic spine and both shoulders. Impression: No acute abnormality is seen. Assessment/Plan Assessment/Plan ASSESSMENT: 64 year-old male with pancytopenia related to ETOH. The patient had similar episode before, in 10/2019, with improvement in his blood counts while at the hospital and not drinking. Although patient's platelets have recovered into the normal range, patient's WBC improved from 2.4 on 01/02/2020 to 4 on 01/05/2020, subsequently declining to 3.1, possibly related to metronidazole 01/01/2020-01/05/2020. The patient denies any tick bites or rashes, which could potentially have led to Ehrlichiosis, Anaplasmosis, Rickettsia tick-borne illnesses, which could potentially be associated with pancytopenia/elevated LFT's. No further work-up is necessary for pancytopenia. Will need to monitor CBC daily while at the hospital and 2-3 weeks after discharge. Chronic lymphopenia, ALC 0.7 on 01/08/2020, 0.8 on 01/02/2020, 0.9 on 10/07/2019, 0.6 on 10/05/2019, 0.9 on 10/04/2019, 1.5 on 07/05/18. Patient's hepatitis panel was negative. I suggested testing for HIV, but Logan declined, citing lack of sex over the past 10 years and no exposure to needle sticks. Management of gas/diarrhea, likely related to chronic pancreatitis/exocrine pancreatic insufficiency due to chronic ETOH use, as per Dr. Massey and THERESE Geiger. PLAN: 1. B12, MMA, while at the hospital. 2. CBC daily while at the hospital. 3. CBC and folate 2-3 weeks after discharge. 4. Consideration could be given to HIV test as outpatient if patient agrees. 5. Follow-up with us on as needed basis. Thank you for the opportunity to see your patient. Please call with any questions. Luis Chacko MD [phone] CLAUDINE CHACKO MD Jan 08, 2020 14:27
[2020-01-08 15:05] VITALS: BP 108/77
[2020-01-08 19:52] VITALS: BP 117/68
[2020-01-08] MEDS: ACETAMINOPHEN 325 MG TABLET. PO PRN (21:54)
[2020-01-08] MEDS: ENOXAPARIN 40 MG/0.4 ML SYRINGE. SQ SCH (21:56)
[2020-01-08 23:46] VITALS: BP 135/92
[2020-01-09] MEDS: IV NORMAL SALINE 1000ML BAG 1,000 ML IV SCH ×3 (00:37→22:22)
[2020-01-09] MEDS: PIPERACILLIN/TAZOBACTAM 3.375 GM in IV NORMAL SALINE 50ML 50 ML IV SCH ×2 (00:37→06:00)
[2020-01-09 03:01] VITALS: BP 119/83
[2020-01-09 04:40] LABS: BASO % 1 % (0-3); EOS % 1 % (0-3); HEMATOCRIT 30.2 % (39.0-53.0); HEMOGLOBIN 10.6 g/dL (13.0-17.5); LYMPH # 0.9 x10^3/uL (1.0-4.8); LYMPH % 29 % (24-48); MEAN CORPUSCULAR HEMOGLOBIN 30 pg (25-35); MEAN CORPUSCULAR HGB CONC 35 g/dL (31-37); MEAN CORPUSCULAR VOLUME 85 fL (79-100); MONO # 0.7 x10^3/uL (0.0-1.1); MONO % 22 % (0-9); NEUT # 1.4 x10^3/uL (1.8-7.7); NEUT % 48 % (31-73); PLATELET COUNT 206 x10^3/uL (140-400); RED BLOOD COUNT 3.54 x10^6/uL (4.30-5.70); RED CELL DISTRIBUTION WIDTH 13.4 % (11.5-14.5)
[2020-01-09 07:15] VITALS: BP 114/76
[2020-01-09] MEDS: METOPROLOL TART IMMED RELEASE 50 MG TABLET. PO SCH ×2 (08:26→22:22)
[2020-01-09] MEDS: ACETAMINOPHEN 325 MG TABLET. PO PRN (08:26)
[2020-01-09] MEDS: LIPASE/PROTEAS/AMYLAS 10/32/42 CAPSULE.DR. PO SCH ×3 (08:27→17:15)
[2020-01-09] MEDS: POTASSIUM CHLORIDE 20 MEQ TABLET.ER. PO SCH (08:27)
[2020-01-09] MEDS: PANTOPRAZOLE 40 MG TABLET.DR. PO SCH (08:27)
[2020-01-09] MEDS: DOXAZOSIN MESYLATE 4 MG TABLET. PO SCH (08:27)
[2020-01-09] MEDS: LACTOBACILLUS RHAMNOSUS GG 1 CAPSULE. PO SCH ×2 (08:27→22:22)
[2020-01-09 09:17] LABS: CREATININE 0.8 mg/dL (0.7-1.3); GFR 118.5; POTASSIUM 3.5 mmol/L (3.5-5.1)
--- NOTE | 2020-01-09 10:17 | PDOC ---
Infectious Disease Note Subjective Subjective Some better. Appetite a little improved Stools now soft Denies F/C/S/SOa/N/V No rash and urinating ok ROS ROS o/w neg Vital Sign Vital Signs Vital Signs Date Time Temp Pulse Resp B/P (MAP) Pulse Ox O2 Delivery O2 Flow Rate FiO2 01/09/20 08:27 89 114/76 01/09/20 07:15 101.4 17 94 Room Air 101.4 Physical Exam PHYSICAL EXAM GENERAL: He is sitting upright in bed. He is cooperative. He is in no acute distress. Looks well. smiled HEENT: Pupils equal and reactive. He has normal conjunctivae. Oral cavity, pharynx is clear. NECK: Supple. Good range of motion. LUNGS: Clear to auscultation bilaterally. HEART: S1, S2. ABDOMEN: Soft, no guarding, no rebound. EXTREMITIES: Without clubbing or cyanosis. No gross edema. NEUROLOGIC: He is nonfocal. Labs Lab Laboratory Tests Test 01/09/20 03:10 White Blood Count 3.0 x10^3/uL (4.0-11.0) Red Blood Count 3.54 x10^6/uL (4.30-5.70) Hemoglobin 10.6 g/dL (13.0-17.5) Hematocrit 30.2 % (39.0-53.0) Mean Corpuscular Volume 85 fL (79-100) Mean Corpuscular Hemoglobin 30 pg (25-35) Mean Corpuscular Hemoglobin Concent 35 g/dL (31-37) Red Cell Distribution Width 13.4 % (11.5-14.5) Platelet Count 206 x10^3/uL (140-400) Neutrophils (%) (Auto) 48 % (31-73) Lymphocytes (%) (Auto) 29 % (24-48) Monocytes (%) (Auto) 22 % (0-9) Eosinophils (%) (Auto) 1 % (0-3) Basophils (%) (Auto) 1 % (0-3) Neutrophils # (Auto) 1.4 x10^3/uL (1.8-7.7) Lymphocytes # (Auto) 0.9 x10^3/uL (1.0-4.8) Monocytes # (Auto) 0.7 x10^3/uL (0.0-1.1) Eosinophils # (Auto) 0.0 x10^3/uL (0.0-0.7) Basophils # (Auto) 0.0 x10^3/uL (0.0-0.2) Sodium Level 136 mmol/L (136-145) Potassium Level 3.5 mmol/L (3.5-5.1) Chloride Level 98 mmol/L (98-107) Carbon Dioxide Level 27 mmol/L (21-32) Anion Gap 11 (6-14) Blood Urea Nitrogen 4 mg/dL (8-26) Creatinine 0.8 mg/dL (0.7-1.3) Estimated GFR (Cockcroft-Gault) 118.5 Glucose Level 97 mg/dL (70-99) Calcium Level 8.0 mg/dL (8.5-10.1) Micro Echo shows left ventricular systolic function normal. EF is normal 60-65%. For now, I will continue the Zosyn. Check a CBC and CMP in the morning. Microbiology 01/04/20 Blood Culture - Preliminary, Resulted NO GROWTH AFTER 2 DAYS Objective Assessment 1. Fever despite change to Zosyn since 01/04 and previous Flagyl and Cipro ? withdrawl depending on ETOH intake or other process. Nml Procalcitonin 2. Leukopenia - could ETOH related if routine use, Platelets better but has monocytosis and leukopenia 3. Orthostatic hypotension. 4. Transaminitis - better. 5. Acute kidney injury that has improved. 6. Hyponatremia. 7. History of alcohol abuse 8. Loose stool - C-diff neg 01/01 Plan Plan of Care Could be viral process with fever and elevated LFTs check CMV/EBV/CRP Add Doxy CT chest Will discontinue the zosyn as fever persists. He denies tick exposures or risks for tick electrolytes per primary. Gaye lentz reviewed Lab in am JEFF BRAND MD Jan 09, 2020 10:17
[2020-01-09] MEDS ORDERED: CONTRAST GIVEN. MC PRN (10:30)
[2020-01-09] MEDS ORDERED: IOHEXOL 300 MG/ML 100ML VIAL. IV ONE (10:30)
[2020-01-09] MEDS: COLESTIPOL HCL 1 GM TABLET PO SCH ×2 (10:43→22:20)
[2020-01-09] MEDS: DOXYCYCLINE HYCLATE 100 MG TABLET PO SCH ×2 (10:43→22:20)
[2020-01-09 11:09] VITALS: BP 105/65
--- NOTE | 2020-01-09 11:44 | PDOC ---
Subjective: Subjective: Feeling better. Objective: Objective: Tmax 101.4 Hematology recs: 1. B12, MMA, while at the hospital. 2. CBC daily while at the hospital. 3. CBC and folate 2-3 weeks after discharge. 4. Consideration could be given to HIV test as outpatient if patient agrees. 5. Follow-up with us on as needed basis. ID checking CMV, EBV. Vital Signs: Vital Signs Date Time Temp Pulse Resp B/P (MAP) Pulse Ox O2 Delivery O2 Flow Rate FiO2 01/09/20 11:09 99.0 79 16 105/65 (78) 96 Room Air 99.0 Labs: Laboratory Tests Test 01/09/20 03:10 White Blood Count 3.0 x10^3/uL Red Blood Count 3.54 x10^6/uL Hemoglobin 10.6 g/dL Hematocrit 30.2 % Mean Corpuscular Volume 85 fL Mean Corpuscular Hemoglobin 30 pg Mean Corpuscular Hemoglobin Concent 35 g/dL Red Cell Distribution Width 13.4 % Platelet Count 206 x10^3/uL Neutrophils (%) (Auto) 48 % Lymphocytes (%) (Auto) 29 % Monocytes (%) (Auto) 22 % Eosinophils (%) (Auto) 1 % Basophils (%) (Auto) 1 % Neutrophils # (Auto) 1.4 x10^3/uL Lymphocytes # (Auto) 0.9 x10^3/uL Monocytes # (Auto) 0.7 x10^3/uL Eosinophils # (Auto) 0.0 x10^3/uL Basophils # (Auto) 0.0 x10^3/uL Sodium Level 136 mmol/L Potassium Level 3.5 mmol/L Chloride Level 98 mmol/L Carbon Dioxide Level 27 mmol/L Anion Gap 11 Blood Urea Nitrogen 4 mg/dL Creatinine 0.8 mg/dL Estimated GFR (Cockcroft-Gault) 118.5 Glucose Level 97 mg/dL Calcium Level 8.0 mg/dL C-Reactive Protein, Quantitative 30.4 mg/L BLOOD CULTURE Final NO GROWTH AFTER 5 DAYS PE: GEN: NAD - sitting on edge of bed LUNGS: room air HEART: RRR ABD: non-distended NEURO/PSYCH: A & O 3 A/P: Fever, elevated CRP Early satiety and diarrhea - better Pancytopenia/ACD - hematology recs as above Elevated AST and ALT - improved, viral Hep panel neg, hepatic steatosis, h/o alcohol overuse -- Any additional GI recs per Dr. Massey. Justicifation of Admission Dx: Justifications for Admission: Justification of Admission Dx: Yes MAGNUS SCHULTE Jan 09, 2020 11:44
--- NOTE | 2020-01-09 11:58 | PDOC ---
[employer] [facility] PROGRESS NOTE Chief Complaint Chief Complaint Hypotension acute renal failure, vasomotor nephropathy transaminitis, overuse of alcohol, stopped 3 days ago when he started feeling poolry orthostatic hypotension, dry, dehydrated htn, chronic diastolic CHF BPH dyspnea, weakness, diarrhea, poss infectious, would be sepsis, Hypokalemia History of Present Illness History of Present Illness 01/09/2020 Patient seen and examined Discussed with RN Chart reviewed He is still having fevers 01/08/2020 Patient seen and examined Chart reviewed Discussed with RN He still having fevers 01/07/2020 Patient seen and examined Chart reviewed Discussed with RN 01/05/2020 Patient seen and examined Chart reviewed Discussed with RN He is having low-grade fevers We are going to consult infectious disease for second opinion He is on Flagyl and Cipro currently Still having some diarrhea Complains of some abdominal pain 01/04/2020 Patient seen and examined He is alert but appears weak Discussed with RN Chart reviewed Gave order for potassium replaced 01/03/2020 Patient seen and examined Discussed with RN Chart reviewed Vitals/I&O Vitals/I&O: Vital Signs Date Time Temp Pulse Resp B/P (MAP) Pulse Ox O2 Delivery O2 Flow Rate FiO2 01/09/20 11:09 99.0 79 16 105/65 (78) 96 Room Air 99.0 I & O 01/08/20 01/08/20 01/09/20 15:00 23:00 07:00 Intake Total 290 ml 480 ml 400 ml Balance 290 ml 480 ml 400 ml Physical Exam Physical Exam: GENERAL: He is sitting upright in bed. He is cooperative. He is in no acute distress. Looks well. smiled HEENT: Pupils equal and reactive. He has normal conjunctivae. Oral cavity, pharynx is clear. NECK: Supple. Good range of motion. LUNGS: Clear to auscultation bilaterally. HEART: S1, S2. ABDOMEN: Soft, no guarding, no rebound. EXTREMITIES: Without clubbing or cyanosis. No gross edema. NEUROLOGIC: He is nonfocal. General: Alert, Oriented X3, Cooperative, No acute distress Heart: Regular rate Lungs: Clear Abdomen: Normal bowel sounds, Other (Tender with palpation in mid abdomen.) Extremities: No clubbing Skin: No rashes, No breakdown Labs Labs: Laboratory Tests Test 01/09/20 03:10 White Blood Count 3.0 x10^3/uL (4.0-11.0) Red Blood Count 3.54 x10^6/uL (4.30-5.70) Hemoglobin 10.6 g/dL (13.0-17.5) Hematocrit 30.2 % (39.0-53.0) Mean Corpuscular Volume 85 fL (79-100) Mean Corpuscular Hemoglobin 30 pg (25-35) Mean Corpuscular Hemoglobin Concent 35 g/dL (31-37) Red Cell Distribution Width 13.4 % (11.5-14.5) Platelet Count 206 x10^3/uL (140-400) Neutrophils (%) (Auto) 48 % (31-73) Lymphocytes (%) (Auto) 29 % (24-48) Monocytes (%) (Auto) 22 % (0-9) Eosinophils (%) (Auto) 1 % (0-3) Basophils (%) (Auto) 1 % (0-3) Neutrophils # (Auto) 1.4 x10^3/uL (1.8-7.7) Lymphocytes # (Auto) 0.9 x10^3/uL (1.0-4.8) Monocytes # (Auto) 0.7 x10^3/uL (0.0-1.1) Eosinophils # (Auto) 0.0 x10^3/uL (0.0-0.7) Basophils # (Auto) 0.0 x10^3/uL (0.0-0.2) Sodium Level 136 mmol/L (136-145) Potassium Level 3.5 mmol/L (3.5-5.1) Chloride Level 98 mmol/L (98-107) Carbon Dioxide Level 27 mmol/L (21-32) Anion Gap 11 (6-14) Blood Urea Nitrogen 4 mg/dL (8-26) Creatinine 0.8 mg/dL (0.7-1.3) Estimated GFR (Cockcroft-Gault) 118.5 Glucose Level 97 mg/dL (70-99) Calcium Level 8.0 mg/dL (8.5-10.1) C-Reactive Protein, Quantitative 30.4 mg/L (0-3.3) Assessment and Plan Assessmemt and Plan Problems Medical Problems: (1) Orthostatic hypotension Status: Acute (2) Person under investigation for COVID-19 Status: Acute Hypotension Fevers acute renal failure, vasomotor nephropathy transaminitis, overuse of alcohol, stopped 3 days ago when he started feeling poolry orthostatic hypotension, dry, dehydrated htn, chronic diastolic CHF BPH dyspnea, weakness, diarrhea, poss infectious, would be sepsis Hypokalemia Plan ID following desk monitor IV fluids IV antibiotics GI following Trend labs Home meds DVT prophylaxis Discharge once his fevers have resolved Prognosis guarded Comment Review of Relevant I have reviewed the following items rhonda (where applicable) has been applied. Medications: Current Medications Medications (Trade) Dose Ordered Sig/Rosa Maria Route PRN Reason Start Time Stop Time Status Last Admin Dose Admin Doxycycline Hyclate (Vibra-Tab) 100 mg BID PO 01/09/20 10:15 01/09/20 10:43 Iohexol (Omnipaque 300 Mg/ml) 75 ml 1X ONCE IV 01/09/20 10:30 01/09/20 10:31 DC 01/09/20 10:30 Justicifation of Admission Dx: Justifications for Admission: Justification of Admission Dx: Yes LESLIE IGLESIAS III DO Jan 09, 2020 11:58
[2020-01-09 15:06] VITALS: BP 114/72
--- NOTE | 2020-01-09 15:42 | RAD ---
EXAM: CT OF THE CHEST WITH CONTRAST. HISTORY: Persistent fever. TECHNIQUE: Computed tomography of the chest was performed after the intravenous administration of iodinated contrast. One or more of the following individualized dose reduction techniques were utilized for this examination: 1. Automated exposure control. 2. Adjustment of the mA and/or kV according to patient size. 3. Use of iterative reconstruction technique. COMPARISON: 09/23/2006. FINDINGS: Images of the upper abdomen reveal no acute abnormality. Bone windows reveal no suspicious lesions. A fluid density mass in the left cardiophrenic angle is consistent with an epicardial or diaphragmatic cyst and measures 3.4 x 2.6 cm. This appears to have been present chronically on limited comparison images. There are no pathologically enlarged mediastinal or axillary lymph nodes. There is no pleural or pericardial effusion. The heart is not enlarged. There are atherosclerotic calcifications of the coronary arteries. There are diffuse mild bilateral groundglass infiltrates involving all lobes. There is only one small region of consolidation in the right lower lobe measuring 11 mm, versus an underlying nodule as seen on axial image 30. IMPRESSION: 1. Bilateral diffuse groundglass infiltrates are nonspecific. Considerations include atypical pneumonia, noncardiogenic pulmonary edema or interstitial lung disease such as desquamative interstitial pneumonia. 2. 3.4 cm cystic lesion in left epicardial region consistent with an epicardial or diaphragmatic cyst. It has been present chronically and benignity is favored. Electronically signed by: Radhames Croft MD (01/09/2020 3:39 PM) [id number]
--- NOTE | 2020-01-09 16:37 | NUR ---
SW following. Reviewed chart and spoke with RN and CM. Pt remains on IV abx and continues to have a temperature. Pt not ready for discharge per Dr. Ayala. Pt will return home when stable. SW to continue following.
[2020-01-09 19:00] VITALS: BP 142/91
[2020-01-09] MEDS: ENOXAPARIN 40 MG/0.4 ML SYRINGE. SQ SCH (22:20)
[2020-01-09 23:00] VITALS: BP 125/87
[2020-01-10 03:00] VITALS: BP 133/91
[2020-01-10 05:50] LABS: BASO % 1 % (0-3); EOS % 1 % (0-3); HEMATOCRIT 30.2 % (39.0-53.0); HEMOGLOBIN 10.6 g/dL (13.0-17.5); LYMPH # 0.9 x10^3/uL (1.0-4.8); LYMPH % 25 % (24-48); MEAN CORPUSCULAR HEMOGLOBIN 30 pg (25-35); MEAN CORPUSCULAR HGB CONC 35 g/dL (31-37); MEAN CORPUSCULAR VOLUME 85 fL (79-100); MONO # 0.7 x10^3/uL (0.0-1.1); MONO % 20 % (0-9); NEUT # 1.9 x10^3/uL (1.8-7.7); NEUT % 54 % (31-73); PLATELET COUNT 225 x10^3/uL (140-400); RED BLOOD COUNT 3.57 x10^6/uL (4.30-5.70); RED CELL DISTRIBUTION WIDTH 13.7 % (11.5-14.5); WHITE BLOOD COUNT 3.5 x10^3/uL (4.0-11.0)
[2020-01-10 06:25] LABS: CALCIUM 7.9 mg/dL (8.5-10.1); CREATININE 0.8 mg/dL (0.7-1.3); GFR 118.5; POTASSIUM 3.2 mmol/L (3.5-5.1)
[2020-01-10 07:00] VITALS: BP 167/110
--- NOTE | 2020-01-10 08:42 | PDOC ---
Infectious Disease Note Subjective Subjective Some better. Appetite stable Stools now soft Denies F/C/S/SOa/N/V No rash and urinating ok Born and has lived in . Has not lived anywhere else. No Foreign travel/m ilitary history/Construction or farming. 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 No TB exposure. No pets -hunting or fishing. No tick exposure Sister with Cancer times 2 but he does not know the type. No RA/lupus/GI Vital Sign Vital Signs Vital Signs Date Time Temp Pulse Resp B/P (MAP) Pulse Ox O2 Delivery O2 Flow Rate FiO2 01/10/20 03:00 100.1 88 18 133/91 (105) 96 100.1 01/09/20 20:00 Room Air Physical Exam PHYSICAL EXAM GENERAL: He is sitting upright in bed. He is cooperative. He is in no acute distress. Looks well. smiled HEENT: Pupils equal and reactive. He has normal conjunctivae. Oral cavity, pharynx is clear. NECK: Supple. Good range of motion. LUNGS: Clear to auscultation bilaterally. HEART: S1, S2. ABDOMEN: Soft, no guarding, no rebound. EXTREMITIES: Without clubbing or cyanosis. No gross edema. NEUROLOGIC: He is nonfocal. Labs Lab Laboratory Tests Test 01/10/20 04:50 White Blood Count 3.5 x10^3/uL (4.0-11.0) Red Blood Count 3.57 x10^6/uL (4.30-5.70) Hemoglobin 10.6 g/dL (13.0-17.5) Hematocrit 30.2 % (39.0-53.0) Mean Corpuscular Volume 85 fL (79-100) Mean Corpuscular Hemoglobin 30 pg (25-35) Mean Corpuscular Hemoglobin Concent 35 g/dL (31-37) Red Cell Distribution Width 13.7 % (11.5-14.5) Platelet Count 225 x10^3/uL (140-400) Neutrophils (%) (Auto) 54 % (31-73) Lymphocytes (%) (Auto) 25 % (24-48) Monocytes (%) (Auto) 20 % (0-9) Eosinophils (%) (Auto) 1 % (0-3) Basophils (%) (Auto) 1 % (0-3) Neutrophils # (Auto) 1.9 x10^3/uL (1.8-7.7) Lymphocytes # (Auto) 0.9 x10^3/uL (1.0-4.8) Monocytes # (Auto) 0.7 x10^3/uL (0.0-1.1) Eosinophils # (Auto) 0.0 x10^3/uL (0.0-0.7) Basophils # (Auto) 0.0 x10^3/uL (0.0-0.2) Sodium Level 132 mmol/L (136-145) Potassium Level 3.2 mmol/L (3.5-5.1) Chloride Level 97 mmol/L (98-107) Carbon Dioxide Level 25 mmol/L (21-32) Anion Gap 10 (6-14) Blood Urea Nitrogen 4 mg/dL (8-26) Creatinine 0.8 mg/dL (0.7-1.3) Estimated GFR (Cockcroft-Gault) 118.5 Glucose Level 96 mg/dL (70-99) Calcium Level 7.9 mg/dL (8.5-10.1) Micro CT chest 01/08 MPRESSION: 1. Bilateral diffuse groundglass infiltrates are nonspecific. Considerations include atypical pneumonia, noncardiogenic pulmonary edema or interstitial lung disease such as desquamative interstitial pneumonia. 2. 3.4 cm cystic lesion in left epicardial region consistent with an epicardial or diaphragmatic cyst. It has been present chronically and benignity is favored. Echo shows left ventricular systolic function normal. EF is normal 60-65%. For now, I will continue the Zosyn. Check a CBC and CMP in the morning. Microbiology 01/04/20 Blood Culture - Preliminary, Resulted NO GROWTH AFTER 2 DAYS Objective Assessment 1. Fever despite change to Zosyn since 01/04 and previous Flagyl and Cipro ? withdrawl depending on ETOH intake or other process. Nml Procalcitonin. COVID - neg 2. Leukopenia - better still with monocytosis - Elevated CRP 3. Orthostatic hypotension. 4. Transaminitis - better. 5. Acute kidney injury that has improved. 6. Hyponatremia. 7. History of alcohol abuse 8. Loose stool - C-diff neg 01/01 Plan Plan of Care Given CT findings 01/08 - COVID checked and this am is still pending. Could be other viral process with fever and elevated LFTs checking CMV/EBV Added Doxy 01/08 electrolytes per primary. Gaye lentz reviewed if COVID neg may need bone marrow given persistent Monocytosis - feels he may have been having fevers at home but not as often but was not checking routinely Lab in am JEFF BRAND MD Jan 10, 2020 08:42
[2020-01-10] MEDS: LIPASE/PROTEAS/AMYLAS 10/32/42 CAPSULE.DR. PO SCH ×3 (09:12→18:08)
[2020-01-10] MEDS: METOPROLOL TART IMMED RELEASE 50 MG TABLET. PO SCH ×2 (09:12→22:05)
[2020-01-10] MEDS: PANTOPRAZOLE 40 MG TABLET.DR. PO SCH (09:12)
[2020-01-10] MEDS: POTASSIUM CHLORIDE 20 MEQ TABLET.ER. PO SCH (09:12)
[2020-01-10] MEDS: DOXYCYCLINE HYCLATE 100 MG TABLET PO SCH ×2 (09:12→22:05)
[2020-01-10] MEDS: COLESTIPOL HCL 1 GM TABLET PO SCH ×2 (09:12→22:04)
[2020-01-10] MEDS: DOXAZOSIN MESYLATE 4 MG TABLET. PO SCH (09:12)
[2020-01-10] MEDS: LACTOBACILLUS RHAMNOSUS GG 1 CAPSULE. PO SCH ×2 (09:12→22:04)
--- NOTE | 2020-01-10 11:27 | PDOC ---
Objective: Objective: Reviewed chart, d/w nurse - rechecking COVID - if negative, possible bone marrow biopsy. No GI concerns. Tmax 101.4. Vital Signs: Vital Signs Date Time Temp Pulse Resp B/P (MAP) Pulse Ox O2 Delivery O2 Flow Rate FiO2 01/10/20 09:12 80 167/111 01/10/20 07:00 100.0 15 95 Room Air 100.0 Labs: Laboratory Tests Test 01/10/20 04:50 White Blood Count 3.5 x10^3/uL Red Blood Count 3.57 x10^6/uL Hemoglobin 10.6 g/dL Hematocrit 30.2 % Mean Corpuscular Volume 85 fL Mean Corpuscular Hemoglobin 30 pg Mean Corpuscular Hemoglobin Concent 35 g/dL Red Cell Distribution Width 13.7 % Platelet Count 225 x10^3/uL Neutrophils (%) (Auto) 54 % Lymphocytes (%) (Auto) 25 % Monocytes (%) (Auto) 20 % Eosinophils (%) (Auto) 1 % Basophils (%) (Auto) 1 % Neutrophils # (Auto) 1.9 x10^3/uL Lymphocytes # (Auto) 0.9 x10^3/uL Monocytes # (Auto) 0.7 x10^3/uL Eosinophils # (Auto) 0.0 x10^3/uL Basophils # (Auto) 0.0 x10^3/uL Sodium Level 132 mmol/L Potassium Level 3.2 mmol/L Chloride Level 97 mmol/L Carbon Dioxide Level 25 mmol/L Anion Gap 10 Blood Urea Nitrogen 4 mg/dL Creatinine 0.8 mg/dL Estimated GFR (Cockcroft-Gault) 118.5 Glucose Level 96 mg/dL Calcium Level 7.9 mg/dL PE: exam deferred - back in COVID isolation A/P: Fever, elevated CRP Early satiety and diarrhea - resolved Pancytopenia/ACD Elevated AST and ALT - improved (checked 01/06), viral Hep panel neg, hepatic steatosis, h/o alcohol overuse -- Plans as above, will follow. Justicifation of Admission Dx: Justifications for Admission: Justification of Admission Dx: Yes MAGNUS SCHULTE Jan 10, 2020 11:27
[2020-01-10 11:42] VITALS: BP 148/95
--- NOTE | 2020-01-10 12:55 | PDOC ---
[employer] [facility] PROGRESS NOTE Chief Complaint Chief Complaint Persistent intermittent fever Hypotension acute renal failure, vasomotor nephropathy transaminitis, overuse of alcohol, stopped 3 days ago when he started feeling poolry orthostatic hypotension, dry, dehydrated htn, chronic diastolic CHF BPH dyspnea, weakness, diarrhea, poss infectious, would be sepsis, Hypokalemia History of Present Illness History of Present Illness 01/10/2020 Patient seen and examined He is still having low-grade fevers this morning (100.1) Discussed with case management Chart reviewed Discussed with RN repeat COVID-19 test is still pending 01/09/2020 Patient seen and examined Discussed with RN Chart reviewed He is still having fevers 01/08/2020 Patient seen and examined Chart reviewed Discussed with RN He still having fevers 01/07/2020 Patient seen and examined Chart reviewed Discussed with RN 01/05/2020 Patient seen and examined Chart reviewed Discussed with RN He is having low-grade fevers We are going to consult infectious disease for second opinion He is on Flagyl and Cipro currently Still having some diarrhea Complains of some abdominal pain 01/04/2020 Patient seen and examined He is alert but appears weak Discussed with RN Chart reviewed Gave order for potassium replaced 01/03/2020 Patient seen and examined Discussed with RN Chart reviewed Vitals/I&O Vitals/I&O: Vital Signs Date Time Temp Pulse Resp B/P (MAP) Pulse Ox O2 Delivery O2 Flow Rate FiO2 01/10/20 11:42 100.1 90 15 148/95 (112) 97 Room Air 100.1 I & O 01/09/20 01/09/20 01/10/20 15:00 23:00 07:00 Intake Total 240 ml 0 ml Balance 240 ml 0 ml Physical Exam Physical Exam: GENERAL: He is sitting upright in bed. He is cooperative. He is in no acute distress. Looks well. smiled HEENT: Pupils equal and reactive. He has normal conjunctivae. Oral cavity, pharynx is clear. NECK: Supple. Good range of motion. LUNGS: Clear to auscultation bilaterally. HEART: S1, S2. ABDOMEN: Soft, no guarding, no rebound. EXTREMITIES: Without clubbing or cyanosis. No gross edema. NEUROLOGIC: He is nonfocal. General: Alert, Oriented X3, Cooperative, No acute distress Heart: Regular rate Lungs: Clear Abdomen: Normal bowel sounds, Other (Tender with palpation in mid abdomen.) Extremities: No clubbing Skin: No rashes, No breakdown Labs Labs: Laboratory Tests Test 01/10/20 04:50 White Blood Count 3.5 x10^3/uL (4.0-11.0) Red Blood Count 3.57 x10^6/uL (4.30-5.70) Hemoglobin 10.6 g/dL (13.0-17.5) Hematocrit 30.2 % (39.0-53.0) Mean Corpuscular Volume 85 fL (79-100) Mean Corpuscular Hemoglobin 30 pg (25-35) Mean Corpuscular Hemoglobin Concent 35 g/dL (31-37) Red Cell Distribution Width 13.7 % (11.5-14.5) Platelet Count 225 x10^3/uL (140-400) Neutrophils (%) (Auto) 54 % (31-73) Lymphocytes (%) (Auto) 25 % (24-48) Monocytes (%) (Auto) 20 % (0-9) Eosinophils (%) (Auto) 1 % (0-3) Basophils (%) (Auto) 1 % (0-3) Neutrophils # (Auto) 1.9 x10^3/uL (1.8-7.7) Lymphocytes # (Auto) 0.9 x10^3/uL (1.0-4.8) Monocytes # (Auto) 0.7 x10^3/uL (0.0-1.1) Eosinophils # (Auto) 0.0 x10^3/uL (0.0-0.7) Basophils # (Auto) 0.0 x10^3/uL (0.0-0.2) Sodium Level 132 mmol/L (136-145) Potassium Level 3.2 mmol/L (3.5-5.1) Chloride Level 97 mmol/L (98-107) Carbon Dioxide Level 25 mmol/L (21-32) Anion Gap 10 (6-14) Blood Urea Nitrogen 4 mg/dL (8-26) Creatinine 0.8 mg/dL (0.7-1.3) Estimated GFR (Cockcroft-Gault) 118.5 Glucose Level 96 mg/dL (70-99) Calcium Level 7.9 mg/dL (8.5-10.1) Assessment and Plan Assessmemt and Plan Problems Medical Problems: (1) Orthostatic hypotension Status: Acute (2) Person under investigation for COVID-19 Status: Acute Hypotension Fevers acute renal failure, vasomotor nephropathy transaminitis, overuse of alcohol, stopped 3 days ago when he started feeling poolry orthostatic hypotension, dry, dehydrated htn, chronic diastolic CHF BPH dyspnea, weakness, diarrhea, poss infectious, would be sepsis Hypokalemia Plan Awaiting COVID 19 repeat test ID following see wheeler IV fluids He is on p.o. doxycycline GI following Trend labs Home meds PRN Tylenol DVT prophylaxis Discharge once his fevers have resolved Comment Review of Relevant I have reviewed the following items rhonda (where applicable) has been applied. Justicifation of Admission Dx: Justifications for Admission: Justification of Admission Dx: Yes LESLIE IGLESIAS III DO Jan 10, 2020 12:55
[2020-01-10] MEDS: IV NORMAL SALINE 1000ML BAG 1,000 ML IV SCH ×2 (13:45→16:00)
[2020-01-10 15:05] VITALS: BP 138/93
--- NOTE | 2020-01-10 16:49 | NUR ---
SW following. Spoke with RN and reviewed chart. Pt from home with plans to return at discharge. Pt continues to have fevers and is being re-tested for COVID. SW to continue following.
[2020-01-10 17:19] LABS: EBNA IGG 29.4 U/mL (0.0-17.9)
[2020-01-10] MEDS: ENOXAPARIN 40 MG/0.4 ML SYRINGE. SQ SCH (22:04)
[2020-01-10 23:00] VITALS: BP 116/75
[2020-01-11] MEDS: IV NORMAL SALINE 1000ML BAG 1,000 ML IV SCH ×3 (02:05→21:29)
[2020-01-11] MEDS: ACETAMINOPHEN 325 MG TABLET. PO PRN (02:09)
[2020-01-11 03:34] VITALS: BP 154/82
[2020-01-11 04:55] LABS: BASO % 1 % (0-3); EOS % 1 % (0-3); HEMATOCRIT 28.9 % (39.0-53.0); HEMOGLOBIN 10.1 g/dL (13.0-17.5); LYMPH # 0.8 x10^3/uL (1.0-4.8); LYMPH % 21 % (24-48); MEAN CORPUSCULAR HEMOGLOBIN 30 pg (25-35); MEAN CORPUSCULAR HGB CONC 35 g/dL (31-37); MEAN CORPUSCULAR VOLUME 85 fL (79-100); MONO # 0.7 x10^3/uL (0.0-1.1); MONO % 17 % (0-9); NEUT # 2.3 x10^3/uL (1.8-7.7); NEUT % 60 % (31-73); PLATELET COUNT 229 x10^3/uL (140-400); RED CELL DISTRIBUTION WIDTH 13.7 % (11.5-14.5); WHITE BLOOD COUNT 3.8 x10^3/uL (4.0-11.0)
[2020-01-11 05:34] LABS: ALBUMIN 2.6 g/dL (3.4-5.0); ALBUMIN/GLOBULIN RATIO 0.6 (1.0-1.7); CALCIUM 7.7 mg/dL (8.5-10.1); CREATININE 0.8 mg/dL (0.7-1.3); GFR 118.5; POTASSIUM 3.1 mmol/L (3.5-5.1); TOTAL BILIRUBIN 0.6 mg/dL (0.2-1.0); TOTAL PROTEIN 6.7 g/dL (6.4-8.2)
[2020-01-11 06:44] VITALS: BP 114/79
[2020-01-11] MEDS: LIPASE/PROTEAS/AMYLAS 10/32/42 CAPSULE.DR. PO SCH ×3 (08:46→17:21)
[2020-01-11] MEDS: COLESTIPOL HCL 1 GM TABLET PO SCH ×2 (08:46→21:27)
[2020-01-11] MEDS: METOPROLOL TART IMMED RELEASE 50 MG TABLET. PO SCH ×2 (08:46→21:28)
[2020-01-11] MEDS: LACTOBACILLUS RHAMNOSUS GG 1 CAPSULE. PO SCH ×2 (08:46→21:27)
[2020-01-11] MEDS: DOXAZOSIN MESYLATE 4 MG TABLET. PO SCH (08:46)
[2020-01-11] MEDS: PANTOPRAZOLE 40 MG TABLET.DR. PO SCH (08:47)
[2020-01-11] MEDS: DOXYCYCLINE HYCLATE 100 MG TABLET PO SCH ×2 (08:47→21:27)
[2020-01-11] MEDS: POTASSIUM CHLORIDE 20 MEQ TABLET.ER. PO SCH (08:47)
--- NOTE | 2020-01-11 08:48 | PDOC ---
Infectious Disease Note Subjective Subjective Some better yet. Appetite stable HAd a big sweat Stools now soft Denies F/C/SOa/N/V No rash and urinating ok Born and has lived in . Has not lived anywhere else. No Foreign travel/ history/Construction or farming. 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 No pets -hunting or fishing. No tick exposure Sister with Cancer times 2 but he does not know the type. No RA/lupus/GI Vital Sign Vital Signs Vital Signs Date Time Temp Pulse Resp B/P (MAP) Pulse Ox O2 Delivery O2 Flow Rate FiO2 01/11/20 06:44 98.5 95 16 114/79 (91) 94 Room Air 98.5 Physical Exam PHYSICAL EXAM GENERAL: He is sitting upright in bed. He is cooperative. He is in no acute distress. Looks well. smiled HEENT: Pupils equal and reactive. He has normal conjunctivae. Oral cavity, pharynx is clear. NECK: Supple. Good range of motion. LUNGS: Clear to auscultation bilaterally. HEART: S1, S2. ABDOMEN: Soft, no guarding, no rebound. EXTREMITIES: Without clubbing or cyanosis. No gross edema. NEUROLOGIC: He is nonfocal. Labs Lab Laboratory Tests Test 01/11/20 04:00 White Blood Count 3.8 x10^3/uL (4.0-11.0) Red Blood Count 3.40 x10^6/uL (4.30-5.70) Hemoglobin 10.1 g/dL (13.0-17.5) Hematocrit 28.9 % (39.0-53.0) Mean Corpuscular Volume 85 fL (79-100) Mean Corpuscular Hemoglobin 30 pg (25-35) Mean Corpuscular Hemoglobin Concent 35 g/dL (31-37) Red Cell Distribution Width 13.7 % (11.5-14.5) Platelet Count 229 x10^3/uL (140-400) Neutrophils (%) (Auto) 60 % (31-73) Lymphocytes (%) (Auto) 21 % (24-48) Monocytes (%) (Auto) 17 % (0-9) Eosinophils (%) (Auto) 1 % (0-3) Basophils (%) (Auto) 1 % (0-3) Neutrophils # (Auto) 2.3 x10^3/uL (1.8-7.7) Lymphocytes # (Auto) 0.8 x10^3/uL (1.0-4.8) Monocytes # (Auto) 0.7 x10^3/uL (0.0-1.1) Eosinophils # (Auto) 0.0 x10^3/uL (0.0-0.7) Basophils # (Auto) 0.0 x10^3/uL (0.0-0.2) Sodium Level 133 mmol/L (136-145) Potassium Level 3.1 mmol/L (3.5-5.1) Chloride Level 97 mmol/L (98-107) Carbon Dioxide Level 25 mmol/L (21-32) Anion Gap 11 (6-14) Blood Urea Nitrogen 5 mg/dL (8-26) Creatinine 0.8 mg/dL (0.7-1.3) Estimated GFR (Cockcroft-Gault) 118.5 BUN/Creatinine Ratio 6 (6-20) Glucose Level 95 mg/dL (70-99) Calcium Level 7.7 mg/dL (8.5-10.1) Total Bilirubin 0.6 mg/dL (0.2-1.0) Aspartate Amino Transf (AST/SGOT) 19 U/L (15-37) Alanine Aminotransferase (ALT/SGPT) 19 U/L (16-63) Alkaline Phosphatase 41 U/L (46-116) Total Protein 6.7 g/dL (6.4-8.2) Albumin 2.6 g/dL (3.4-5.0) Albumin/Globulin Ratio 0.6 (1.0-1.7) Micro CT chest 01/08 MPRESSION: 1. Bilateral diffuse groundglass infiltrates are nonspecific. Considerations include atypical pneumonia, noncardiogenic pulmonary edema or interstitial lung disease such as desquamative interstitial pneumonia. 2. 3.4 cm cystic lesion in left epicardial region consistent with an epicardial or diaphragmatic cyst. It has been present chronically and benignity is favored. Echo shows left ventricular systolic function normal. EF is normal 60-65%. For now, I will continue the Zosyn. Check a CBC and CMP in the morning. Microbiology 01/04/20 Blood Culture - Preliminary, Resulted NO GROWTH AFTER 2 DAYS Objective Assessment 1. Fever despite change to Zosyn since 7/5 and previous Flagyl and Cipro ? withdrawl depending on ETOH intake or other process. Nml Procalcitonin. COVID - neg 2. Leukopenia - better still with monocytosis - Elevated CRP. EBV/CMV neg 3. Orthostatic hypotension. 4. Transaminitis - better. 5. Acute kidney injury that has improved. 6. Hyponatremia. 7. History of alcohol abuse 8. Loose stool - C-diff neg 01/01 Plan Plan of Care Given CT findings 01/08 - COVID checked - neg this am Clinically he is stable and I believe he would benefit from a bone marrow biospy - this could be arranged outpatient and if neg would need further w/u - will have nursing contact Heme to see if possible Cont Doxy 01/08 through 01/17 Could d/c home if bone marrow can be arranged and f/u with ID in a week to 10 days o/w will need additional labs if heme not agreeable to bone marrow Heme eval reviewed if COVID neg may need bone marrow given persistent Monocytosis - feels he may have been having fevers at home but not as often but was not checking routinely JEFF BRAND MD Jan 11, 2020 08:48
[2020-01-11 11:05] VITALS: BP 115/79
[2020-01-11 15:05] VITALS: BP 118/77
--- NOTE | 2020-01-11 17:10 | PDOC ---
GENERAL General: Patient examined chart reviewed discussed with nursing. Today is hospital day 10 for this patient admitted with weakness, malaise, hypotension and significant orthostatic hypotension and unexplained fevers. He has bilateral interstitial pneumonitis. His COVID-19 PCR is negative. Plan was for discharge but unfortunately we could not arrange for a bone marrow biopsy as an outpatient. Per infectious diseases he was to stay another night for more investigation patient is feeling comfortable tonight he tells me he is trying to be up a bit moving about the room tolerating that well. He did have a temperature of 101 earlier this morning but has been afebrile through the day. He denies any cough or chest pain or palpitations. We appreciate subspecialty support. Continue current management reassess progress in the morning. Problems: (1) Pneumonitis (2) Orthostatic hypotension VITAL SIGNS Vital Signs/I&O: Vital Signs Date Time Temp Pulse Resp B/P (MAP) Pulse Ox O2 Delivery O2 Flow Rate FiO2 01/11/20 15:05 98.6 89 118/77 (91) 96 Room Air 98.6 01/11/20 11:05 16 I & O 01/10/20 01/10/20 01/11/20 15:00 23:00 07:00 Intake Total 100 ml Balance 100 ml In general the patient is pleasant alert and oriented x3 in no acute distress HEENT exam is unremarkable Chest bilateral equal air entry though diminished throughout no crackles or wheezes are noted Heart S1-S2 normal regular rate and rhythm no murmurs or gallops are noted Abdomen soft nontender nondistended no masses organomegaly noted Extremity exam is unremarkable for acute abnormality. ALLERGIES Allergies: Allergies Coded Allergies Type Severity Reaction Last Updated Verified No Known Drug Allergies 04/03/15 No MEDS Medications: Current Medications Medications (Trade) Dose Ordered Sig/Rosa Maria Start Time Stop Time Status Last Admin Dose Admin Acetaminophen (Tylenol) 650 mg PRN Q6HRS PRN 01/02/20 23:30 01/11/20 02:09 Amylase/Lipase/ Protease (Zenpep 10,000) 2 cap TIDWMEALS 01/07/20 17:00 01/11/20 12:00 Calcium Carbonate/ Glycine (Tums) 500 mg PRN AFTMEALHC PRN 01/02/20 16:30 01/07/20 21:15 Ciprofloxacin (Cipro) 500 mg BID 01/02/20 16:00 01/05/20 16:56 DC 01/05/20 08:21 Colestipol HCl (Colestid) 1 gm BID@10,22 01/07/20 22:00 01/11/20 08:46 Doxazosin Mesylate (Cardura) 4 mg DAILY 01/02/20 09:00 01/11/20 08:46 Doxycycline Hyclate (Vibra-Tab) 100 mg BID 01/09/20 10:15 01/11/20 08:47 Enoxaparin Sodium (Lovenox 40mg Syringe) 40 mg Q24H 01/01/20 21:00 01/10/20 22:04 Enoxaparin Sodium (Lovenox Per Pharmacy Prophylaxis Dosing) 1 each PRN DAILY PRN 01/01/20 19:45 Folic Acid (Folic Acid) 1 mg DAILY 01/04/20 09:00 01/06/20 12:11 DC 01/05/20 08:21 Info (CONTRAST GIVEN -- Rx MONITORING) 1 each PRN DAILY PRN 01/09/20 10:30 01/11/20 10:29 DC Iohexol (Omnipaque 300 Mg/ml) 75 ml 1X ONCE 01/09/20 10:30 01/09/20 10:31 DC 01/09/20 10:30 Lactobacillus Rhamnosus (Culturelle) 1 cap BID 01/03/20 21:00 01/11/20 08:46 Lorazepam (Ativan Inj) 4 mg PRN Q1HR PRN 01/01/20 19:45 Magnesium Sulfate 100 ml @ 25 mls/hr 1X ONCE 01/04/20 14:00 01/04/20 17:59 DC 01/04/20 14:27 Metoprolol Tartrate (Lopressor) 100 mg BID 01/01/20 21:00 01/11/20 08:46 Metronidazole (Flagyl) 500 mg 1X ONCE 01/02/20 16:00 01/02/20 16:01 DC 01/02/20 17:44 Multivitamins (Thera M Plus) 1 tab DAILY 01/04/20 09:00 01/06/20 12:11 DC 01/05/20 08:21 Multivitamins 10 ml/Thiamine HCl 100 mg/Folic Acid 1 mg/Sodium Chloride 1,011.2 ml @ 100 mls/ hr DAILY 01/02/20 09:00 01/04/20 08:59 DC 01/03/20 08:40 Ondansetron HCl (Zofran) 4 mg PRN Q8HRS PRN 01/01/20 19:30 01/02/20 19:29 DC 01/01/20 21:57 Pantoprazole Sodium (Protonix) 40 mg DAILYAC 01/02/20 17:00 01/11/20 08:47 Piperacillin Sod/ Tazobactam Sod 3.375 gm/Sodium Chloride 50 ml @ 100 mls/hr Q6HRS 01/05/20 18:00 01/09/20 10:18 DC 01/09/20 06:00 Potassium Chloride (Klor-Con) 40 meq DAILY 01/07/20 11:00 01/11/20 08:47 Simethicone (Gas-X) 80 mg PRN AFTMEALHC PRN 01/06/20 13:15 01/06/20 21:44 Sodium Chloride 1,000 ml @ 1,000 mls/hr 1X ONCE 01/02/20 11:00 01/02/20 11:59 DC 01/02/20 13:01 Thiamine Mononitrate (Vitamin B-1) 100 mg DAILY 01/04/20 09:00 01/06/20 12:11 DC 01/05/20 08:20 Zolpidem Tartrate (Ambien) 5 mg PRN QHS PRN 01/01/20 21:45 01/01/20 22:03 LAB Lab: Laboratory Tests Test 01/11/20 04:00 White Blood Count 3.8 x10^3/uL (4.0-11.0) L Red Blood Count 3.40 x10^6/uL (4.30-5.70) L Hemoglobin 10.1 g/dL (13.0-17.5) L Hematocrit 28.9 % (39.0-53.0) L Mean Corpuscular Volume 85 fL (79-100) Mean Corpuscular Hemoglobin 30 pg (25-35) Mean Corpuscular Hemoglobin Concent 35 g/dL (31-37) Red Cell Distribution Width 13.7 % (11.5-14.5) Platelet Count 229 x10^3/uL (140-400) Neutrophils (%) (Auto) 60 % (31-73) Lymphocytes (%) (Auto) 21 % (24-48) L Monocytes (%) (Auto) 17 % (0-9) H Eosinophils (%) (Auto) 1 % (0-3) Basophils (%) (Auto) 1 % (0-3) Neutrophils # (Auto) 2.3 x10^3/uL (1.8-7.7) Lymphocytes # (Auto) 0.8 x10^3/uL (1.0-4.8) L Monocytes # (Auto) 0.7 x10^3/uL (0.0-1.1) Eosinophils # (Auto) 0.0 x10^3/uL (0.0-0.7) Basophils # (Auto) 0.0 x10^3/uL (0.0-0.2) Sodium Level 133 mmol/L (136-145) L Potassium Level 3.1 mmol/L (3.5-5.1) L Chloride Level 97 mmol/L (98-107) L Carbon Dioxide Level 25 mmol/L (21-32) Anion Gap 11 (6-14) Blood Urea Nitrogen 5 mg/dL (8-26) L Creatinine 0.8 mg/dL (0.7-1.3) Estimated GFR (Cockcroft-Gault) 118.5 BUN/Creatinine Ratio 6 (6-20) Glucose Level 95 mg/dL (70-99) Calcium Level 7.7 mg/dL (8.5-10.1) L Total Bilirubin 0.6 mg/dL (0.2-1.0) Aspartate Amino Transferase (AST) 19 U/L (15-37) Alanine Aminotransferase (ALT) 19 U/L (16-63) Alkaline Phosphatase 41 U/L (46-116) L C-Reactive Protein, Quantitative 21.9 mg/L (0-3.3) H Total Protein 6.7 g/dL (6.4-8.2) Albumin 2.6 g/dL (3.4-5.0) L Albumin/Globulin Ratio 0.6 (1.0-1.7) L Laboratory Tests 01/11/20 04:00 Laboratory Tests 01/11/20 04:00 IMAGING Imaging: Reviewed ASSESSMENT & PLAN A&P Plan as noted above This note was created using [employer] and may have omissions and/or errors due to the nature of real-time voice sheep sorter. Justicifation of Admission Dx: Justifications for Admission: Justification of Admission Dx: Yes VALENITNO BILLINGS MD Jan 11, 2020 17:10
[2020-01-11] MEDS: SIMETHICONE 80 MG TAB.CHEW PO PRN (18:15)
[2020-01-11 19:05] VITALS: BP 131/80
[2020-01-11 19:09] LABS: RHEUMATOID FACTOR <10.0 IU/mL (0.0-13.9)
[2020-01-11 19:09] LABS: METHYLMALONIC ACID 59 nmol/L (0-378)
--- NOTE | 2020-01-11 20:15 | PDOC ---
VITAL SIGNS Vital Signs/I&O: Vital Signs Date Time Temp Pulse Resp B/P (MAP) Pulse Ox O2 Delivery O2 Flow Rate FiO2 01/11/20 15:05 98.6 89 118/77 (91) 96 Room Air 98.6 01/11/20 11:05 16 I & O 01/10/20 01/10/20 01/11/20 15:00 23:00 07:00 Intake Total 100 ml Balance 100 ml ALLERGIES Allergies: Allergies Coded Allergies Type Severity Reaction Last Updated Verified No Known Drug Allergies 04/03/15 No LAB Lab: Laboratory Tests Test 01/11/20 04:00 White Blood Count 3.8 x10^3/uL (4.0-11.0) L Red Blood Count 3.40 x10^6/uL (4.30-5.70) L Hemoglobin 10.1 g/dL (13.0-17.5) L Hematocrit 28.9 % (39.0-53.0) L Mean Corpuscular Volume 85 fL (79-100) Mean Corpuscular Hemoglobin 30 pg (25-35) Mean Corpuscular Hemoglobin Concent 35 g/dL (31-37) Red Cell Distribution Width 13.7 % (11.5-14.5) Platelet Count 229 x10^3/uL (140-400) Neutrophils (%) (Auto) 60 % (31-73) Lymphocytes (%) (Auto) 21 % (24-48) L Monocytes (%) (Auto) 17 % (0-9) H Eosinophils (%) (Auto) 1 % (0-3) Basophils (%) (Auto) 1 % (0-3) Neutrophils # (Auto) 2.3 x10^3/uL (1.8-7.7) Lymphocytes # (Auto) 0.8 x10^3/uL (1.0-4.8) L Monocytes # (Auto) 0.7 x10^3/uL (0.0-1.1) Eosinophils # (Auto) 0.0 x10^3/uL (0.0-0.7) Basophils # (Auto) 0.0 x10^3/uL (0.0-0.2) Sodium Level 133 mmol/L (136-145) L Potassium Level 3.1 mmol/L (3.5-5.1) L Chloride Level 97 mmol/L (98-107) L Carbon Dioxide Level 25 mmol/L (21-32) Anion Gap 11 (6-14) Blood Urea Nitrogen 5 mg/dL (8-26) L Creatinine 0.8 mg/dL (0.7-1.3) Estimated GFR (Cockcroft-Gault) 118.5 BUN/Creatinine Ratio 6 (6-20) Glucose Level 95 mg/dL (70-99) Calcium Level 7.7 mg/dL (8.5-10.1) L Total Bilirubin 0.6 mg/dL (0.2-1.0) Aspartate Amino Transferase (AST) 19 U/L (15-37) Alanine Aminotransferase (ALT) 19 U/L (16-63) Alkaline Phosphatase 41 U/L (46-116) L C-Reactive Protein, Quantitative 21.9 mg/L (0-3.3) H Total Protein 6.7 g/dL (6.4-8.2) Albumin 2.6 g/dL (3.4-5.0) L Albumin/Globulin Ratio 0.6 (1.0-1.7) L Rheumatoid Factor <10.0 IU/mL (0.0-13.9) Anti-Nuclear Antibody Interpret Pending Bartonella henselae IgG & IgM Ab Pending Bartonella henselae IgG Antibody Pending Bartonella diaz IgG Antibody Pending Bartonella diaz IgM Antibody Pending Laboratory Tests 01/11/20 04:00 Laboratory Tests 01/11/20 04:00 ASSESSMENT & PLAN A&P 64 yo male with pancytopenia due to ETOH, with recent febrile illness (viral?) contributing to anemia and possibly leukopenia. Platelets improved from 60s to 200s. WBC has improved to 3.8. Hb stable. Fevers have been improving. Tmax 101. Plan: Follow-up as outpatient. BM biopsy is not needed for cytopenias, but could be of value for FUO work-up, if feels necessary by ID. Thank you for the opportunity to see your patient. Please call with any questions. [phone] Justicifation of Admission Dx: Justifications for Admission: Justification of Admission Dx: Yes CLAUDINE BAIRD MD Jan 11, 2020 20:15
[2020-01-11] MEDS: ENOXAPARIN 40 MG/0.4 ML SYRINGE. SQ SCH (21:28)
[2020-01-11 23:40] VITALS: BP 159/86
[2020-01-12] MEDS: ACETAMINOPHEN 325 MG TABLET. PO PRN ×4 (00:32→23:46)
[2020-01-12 03:00] VITALS: BP 134/87
[2020-01-12 03:40] LABS: BASO # 0.1 x10^3/uL (0.0-0.2); BASO % 1 % (0-3); EOS % 1 % (0-3); HEMATOCRIT 30.4 % (39.0-53.0); HEMOGLOBIN 10.6 g/dL (13.0-17.5); LYMPH % 26 % (24-48); MEAN CORPUSCULAR HEMOGLOBIN 30 pg (25-35); MEAN CORPUSCULAR HGB CONC 35 g/dL (31-37); MEAN CORPUSCULAR VOLUME 85 fL (79-100); MONO # 0.6 x10^3/uL (0.0-1.1); MONO % 15 % (0-9); NEUT # 2.2 x10^3/uL (1.8-7.7); NEUT % 57 % (31-73); PLATELET COUNT 245 x10^3/uL (140-400); RED BLOOD COUNT 3.58 x10^6/uL (4.30-5.70); RED CELL DISTRIBUTION WIDTH 13.8 % (11.5-14.5); WHITE BLOOD COUNT 3.8 x10^3/uL (4.0-11.0)
[2020-01-12 04:02] LABS: ALBUMIN 2.6 g/dL (3.4-5.0); ALBUMIN/GLOBULIN RATIO 0.6 (1.0-1.7); CALCIUM 7.9 mg/dL (8.5-10.1); CREATININE 0.9 mg/dL (0.7-1.3); GFR 103.5; POTASSIUM 3.6 mmol/L (3.5-5.1); TOTAL BILIRUBIN 0.5 mg/dL (0.2-1.0); TOTAL PROTEIN 6.8 g/dL (6.4-8.2)
[2020-01-12 07:15] VITALS: BP 145/91
[2020-01-12] MEDS: IV NORMAL SALINE 1000ML BAG 1,000 ML IV SCH ×2 (08:00→17:46)
[2020-01-12] MEDS: LIPASE/PROTEAS/AMYLAS 10/32/42 CAPSULE.DR. PO SCH ×3 (09:46→17:46)
[2020-01-12] MEDS: LACTOBACILLUS RHAMNOSUS GG 1 CAPSULE. PO SCH ×2 (09:46→22:02)
[2020-01-12] MEDS: PANTOPRAZOLE 40 MG TABLET.DR. PO SCH (09:46)
[2020-01-12] MEDS: DOXAZOSIN MESYLATE 4 MG TABLET. PO SCH (09:46)
[2020-01-12] MEDS: DOXYCYCLINE HYCLATE 100 MG TABLET PO SCH ×2 (09:47→22:03)
[2020-01-12] MEDS: POTASSIUM CHLORIDE 20 MEQ TABLET.ER. PO SCH (09:47)
[2020-01-12] MEDS: COLESTIPOL HCL 1 GM TABLET PO SCH ×2 (09:48→22:02)
[2020-01-12] MEDS: METOPROLOL TART IMMED RELEASE 50 MG TABLET. PO SCH ×2 (09:48→22:03)
[2020-01-12 11:10] VITALS: BP 135/89
--- NOTE | 2020-01-12 14:45 | PDOC ---
Infectious Disease Note Subjective Subjective Feeling some better Eating 50-100% meals Fever Tmax 101.7 last evening Occ short-winded with activity ROS ROS as mentioned above Vital Sign Vital Signs Vital Signs Date Time Temp Pulse Resp B/P (MAP) Pulse Ox O2 Delivery O2 Flow Rate FiO2 01/12/20 11:10 98.7 90 17 135/89 (104) 96 Room Air 98.7 Physical Exam PHYSICAL EXAM GENERAL: Sitting in the chair, alert, looks better HEENT: Pupils equal and reactive. He has normal conjunctivae. Oral cavity, pharynx is clear. NECK: Supple. Good range of motion. LUNGS: Clear to auscultation bilaterally. HEART: S1, S2. ABDOMEN: Soft, no guarding, no rebound. EXTREMITIES: Without clubbing or cyanosis. No gross edema. NEUROLOGIC: Alert, nonfocal. SKIN: warm to touch. No signs of rash Labs Lab Laboratory Tests Test 01/12/20 03:30 White Blood Count 3.8 x10^3/uL (4.0-11.0) Red Blood Count 3.58 x10^6/uL (4.30-5.70) Hemoglobin 10.6 g/dL (13.0-17.5) Hematocrit 30.4 % (39.0-53.0) Mean Corpuscular Volume 85 fL (79-100) Mean Corpuscular Hemoglobin 30 pg (25-35) Mean Corpuscular Hemoglobin Concent 35 g/dL (31-37) Red Cell Distribution Width 13.8 % (11.5-14.5) Platelet Count 245 x10^3/uL (140-400) Neutrophils (%) (Auto) 57 % (31-73) Lymphocytes (%) (Auto) 26 % (24-48) Monocytes (%) (Auto) 15 % (0-9) Eosinophils (%) (Auto) 1 % (0-3) Basophils (%) (Auto) 1 % (0-3) Neutrophils # (Auto) 2.2 x10^3/uL (1.8-7.7) Lymphocytes # (Auto) 1.0 x10^3/uL (1.0-4.8) Monocytes # (Auto) 0.6 x10^3/uL (0.0-1.1) Eosinophils # (Auto) 0.0 x10^3/uL (0.0-0.7) Basophils # (Auto) 0.1 x10^3/uL (0.0-0.2) Sodium Level 134 mmol/L (136-145) Potassium Level 3.6 mmol/L (3.5-5.1) Chloride Level 99 mmol/L (98-107) Carbon Dioxide Level 25 mmol/L (21-32) Anion Gap 10 (6-14) Blood Urea Nitrogen 5 mg/dL (8-26) Creatinine 0.9 mg/dL (0.7-1.3) Estimated GFR (Cockcroft-Gault) 103.5 BUN/Creatinine Ratio 6 (6-20) Glucose Level 100 mg/dL (70-99) Calcium Level 7.9 mg/dL (8.5-10.1) Total Bilirubin 0.5 mg/dL (0.2-1.0) Aspartate Amino Transf (AST/SGOT) 23 U/L (15-37) Alanine Aminotransferase (ALT/SGPT) 16 U/L (16-63) Alkaline Phosphatase 45 U/L (46-116) Total Protein 6.8 g/dL (6.4-8.2) Albumin 2.6 g/dL (3.4-5.0) Albumin/Globulin Ratio 0.6 (1.0-1.7) Micro Objective Assessment Fever despite change to Zosyn since 01/04 and previous Flagyl and Cipro ? withdrawl depending on ETOH intake or other process. Nml Procalcitonin. COVID - neg -Born and has lived in . Has not lived anywhere else. -No Foreign travel/ history/Construction or farming. 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 -No TB exposure. No pets -hunting or fishing. No tick exposure -Sister with Cancer times 2 but he does not know the type. No RA/lupus/GI Leukopenia - better still with monocytosis - Elevated CRP. EBV/CMV neg Orthostatic hypotension. Transaminitis - better. Acute kidney injury that has improved. Hyponatremia. History of alcohol abuse Loose stool - C-diff neg 01/01 Plan Plan of Care Awaiting bone marrow biopsy Cont Doxy 01/08 through 01/17 Probiotics Bartonella/NEAL/RA pending D/w nursing RF neg NEAL/Bartonella pending check syphilis/HIV but again denying STD Await Bone marrow Attending Co-Sign Attending Co-Sign The patient was seen and interviewed as well as examined at the bedside. The chart was reviewed. The case was discussed. Agree with the plan of care. GLO BROWN APRN Jan 12, 2020 14:45 JEFF BRAND MD Jan 12, 2020 15:39
[2020-01-12 15:04] VITALS: BP 138/84
--- NOTE | 2020-01-12 17:45 | PDOC ---
GENERAL General: Patient examined chart reviewed he is resting comfortably this evening tells me he is looking forward to getting some answers to his ongoing fevers. He had another high fever last night. We appreciate infectious diseases input. Have gone ahead and ordered the bone marrow biopsy for tomorrow with interventional radiology. Continue current management otherwise. Problems: (1) FUO (fever of unknown origin) (2) Orthostatic hypotension VITAL SIGNS Vital Signs/I&O: Vital Signs Date Time Temp Pulse Resp B/P (MAP) Pulse Ox O2 Delivery O2 Flow Rate FiO2 01/12/20 15:04 99.0 85 20 138/84 (102) 96 Room Air 99.0 I & O 01/11/20 01/11/20 01/12/20 15:00 23:00 07:00 Intake Total 650 ml Output Total 250 ml 100 ml Balance -250 ml -100 ml 650 ml In general the patient is pleasant alert and oriented x3 no acute distress HEENT exam is unremarkable Chest is clear to auscultation Heart S1-S2 normal regular rate and rhythm no murmurs or gallops are noted Abdomen soft nontender nondistended no masses organomegaly noted Extremity exam is unremarkable for acute abnormality ALLERGIES Allergies: Allergies Coded Allergies Type Severity Reaction Last Updated Verified No Known Drug Allergies 04/03/15 No MEDS Medications: Current Medications Medications (Trade) Dose Ordered Sig/Rosa Maria Start Time Stop Time Status Last Admin Dose Admin Acetaminophen (Tylenol) 650 mg PRN Q6HRS PRN 01/02/20 23:30 01/12/20 09:47 Amylase/Lipase/ Protease (Zenpep 10,000) 2 cap TIDWMEALS 01/07/20 17:00 01/12/20 12:00 Calcium Carbonate/ Glycine (Tums) 500 mg PRN AFTMEALHC PRN 01/02/20 16:30 01/07/20 21:15 Ciprofloxacin (Cipro) 500 mg BID 01/02/20 16:00 01/05/20 16:56 DC 01/05/20 08:21 Colestipol HCl (Colestid) 1 gm BID@10,22 01/07/20 22:00 01/12/20 09:48 Doxazosin Mesylate (Cardura) 4 mg DAILY 01/02/20 09:00 01/12/20 09:46 Doxycycline Hyclate (Vibra-Tab) 100 mg BID 01/09/20 10:15 01/12/20 09:47 Enoxaparin Sodium (Lovenox 40mg Syringe) 40 mg Q24H 01/01/20 21:00 01/11/20 21:28 Enoxaparin Sodium (Lovenox Per Pharmacy Prophylaxis Dosing) 1 each PRN DAILY PRN 01/01/20 19:45 Folic Acid (Folic Acid) 1 mg DAILY 01/04/20 09:00 01/06/20 12:11 DC 01/05/20 08:21 Info (CONTRAST GIVEN -- Rx MONITORING) 1 each PRN DAILY PRN 01/09/20 10:30 01/11/20 10:29 DC Iohexol (Omnipaque 300 Mg/ml) 75 ml 1X ONCE 01/09/20 10:30 01/09/20 10:31 DC 01/09/20 10:30 Lactobacillus Rhamnosus (Culturelle) 1 cap BID 01/03/20 21:00 01/12/20 09:46 Lorazepam (Ativan Inj) 4 mg PRN Q1HR PRN 01/01/20 19:45 Magnesium Sulfate 100 ml @ 25 mls/hr 1X ONCE 01/04/20 14:00 01/04/20 17:59 DC 01/04/20 14:27 Metoprolol Tartrate (Lopressor) 100 mg BID 01/01/20 21:00 01/12/20 09:48 Metronidazole (Flagyl) 500 mg 1X ONCE 01/02/20 16:00 01/02/20 16:01 DC 01/02/20 17:44 Multivitamins (Thera M Plus) 1 tab DAILY 01/04/20 09:00 01/06/20 12:11 DC 01/05/20 08:21 Multivitamins 10 ml/Thiamine HCl 100 mg/Folic Acid 1 mg/Sodium Chloride 1,011.2 ml @ 100 mls/ hr DAILY 01/02/20 09:00 01/04/20 08:59 DC 01/03/20 08:40 Ondansetron HCl (Zofran) 4 mg PRN Q8HRS PRN 01/01/20 19:30 01/02/20 19:29 DC 01/01/20 21:57 Pantoprazole Sodium (Protonix) 40 mg DAILYAC 01/02/20 17:00 01/12/20 09:46 Piperacillin Sod/ Tazobactam Sod 3.375 gm/Sodium Chloride 50 ml @ 100 mls/hr Q6HRS 01/05/20 18:00 01/09/20 10:18 DC 01/09/20 06:00 Potassium Chloride (Klor-Con) 40 meq DAILY 01/07/20 11:00 01/12/20 09:47 Simethicone (Gas-X) 80 mg PRN AFTMEALHC PRN 01/06/20 13:15 01/11/20 18:15 Sodium Chloride 1,000 ml @ 1,000 mls/hr 1X ONCE 01/02/20 11:00 01/02/20 11:59 DC 01/02/20 13:01 Thiamine Mononitrate (Vitamin B-1) 100 mg DAILY 01/04/20 09:00 01/06/20 12:11 DC 01/05/20 08:20 Zolpidem Tartrate (Ambien) 5 mg PRN QHS PRN 01/01/20 21:45 01/01/20 22:03 LAB Lab: Laboratory Tests Test 01/12/20 03:30 White Blood Count 3.8 x10^3/uL (4.0-11.0) L Red Blood Count 3.58 x10^6/uL (4.30-5.70) L Hemoglobin 10.6 g/dL (13.0-17.5) L Hematocrit 30.4 % (39.0-53.0) L Mean Corpuscular Volume 85 fL (79-100) Mean Corpuscular Hemoglobin 30 pg (25-35) Mean Corpuscular Hemoglobin Concent 35 g/dL (31-37) Red Cell Distribution Width 13.8 % (11.5-14.5) Platelet Count 245 x10^3/uL (140-400) Neutrophils (%) (Auto) 57 % (31-73) Lymphocytes (%) (Auto) 26 % (24-48) Monocytes (%) (Auto) 15 % (0-9) H Eosinophils (%) (Auto) 1 % (0-3) Basophils (%) (Auto) 1 % (0-3) Neutrophils # (Auto) 2.2 x10^3/uL (1.8-7.7) Lymphocytes # (Auto) 1.0 x10^3/uL (1.0-4.8) Monocytes # (Auto) 0.6 x10^3/uL (0.0-1.1) Eosinophils # (Auto) 0.0 x10^3/uL (0.0-0.7) Basophils # (Auto) 0.1 x10^3/uL (0.0-0.2) Sodium Level 134 mmol/L (136-145) L Potassium Level 3.6 mmol/L (3.5-5.1) Chloride Level 99 mmol/L (98-107) Carbon Dioxide Level 25 mmol/L (21-32) Anion Gap 10 (6-14) Blood Urea Nitrogen 5 mg/dL (8-26) L Creatinine 0.9 mg/dL (0.7-1.3) Estimated GFR (Cockcroft-Gault) 103.5 BUN/Creatinine Ratio 6 (6-20) Glucose Level 100 mg/dL (70-99) H Calcium Level 7.9 mg/dL (8.5-10.1) L Total Bilirubin 0.5 mg/dL (0.2-1.0) Aspartate Amino Transferase (AST) 23 U/L (15-37) Alanine Aminotransferase (ALT) 16 U/L (16-63) Alkaline Phosphatase 45 U/L (46-116) L Total Protein 6.8 g/dL (6.4-8.2) Albumin 2.6 g/dL (3.4-5.0) L Albumin/Globulin Ratio 0.6 (1.0-1.7) L Laboratory Tests 01/12/20 03:30 Laboratory Tests 01/12/20 03:30 ASSESSMENT & PLAN A&P Plan as noted above This note was created using [employer] and may have omissions and/or errors due to the nature of real-time voice afternoon nanny. Justicifation of Admission Dx: Justifications for Admission: Justification of Admission Dx: Yes VALENTINO BILLINGS MD Jan 12, 2020 17:45
[2020-01-12 19:00] VITALS: BP 116/76
[2020-01-12] MEDS: ENOXAPARIN 40 MG/0.4 ML SYRINGE. SQ SCH (22:04)
[2020-01-12 23:00] VITALS: BP 140/86
[2020-01-13] VITALS (20 sets, daily range): BP systolic 101–169; BP diastolic 60–102
[2020-01-13] MEDS: IV NORMAL SALINE 1000ML BAG 1,000 ML IV SCH ×2 (02:46→14:37)
[2020-01-13 05:20] LABS: BASO % 1 % (0-3); EOS % 1 % (0-3); HEMATOCRIT 29.3 % (39.0-53.0); HEMOGLOBIN 10.4 g/dL (13.0-17.5); LYMPH # 0.9 x10^3/uL (1.0-4.8); LYMPH % 24 % (24-48); MEAN CORPUSCULAR HEMOGLOBIN 30 pg (25-35); MEAN CORPUSCULAR HGB CONC 35 g/dL (31-37); MEAN CORPUSCULAR VOLUME 85 fL (79-100); MONO # 0.6 x10^3/uL (0.0-1.1); MONO % 15 % (0-9); NEUT # 2.2 x10^3/uL (1.8-7.7); NEUT % 59 % (31-73); PLATELET COUNT 247 x10^3/uL (140-400); RED BLOOD COUNT 3.45 x10^6/uL (4.30-5.70); RED CELL DISTRIBUTION WIDTH 13.8 % (11.5-14.5); WHITE BLOOD COUNT 3.8 x10^3/uL (4.0-11.0)
[2020-01-13 05:47] LABS: ALBUMIN 2.6 g/dL (3.4-5.0); ALBUMIN/GLOBULIN RATIO 0.6 (1.0-1.7); CALCIUM 7.8 mg/dL (8.5-10.1); CREATININE 0.8 mg/dL (0.7-1.3); GFR 118.5; POTASSIUM 3.4 mmol/L (3.5-5.1); TOTAL BILIRUBIN 0.5 mg/dL (0.2-1.0); TOTAL PROTEIN 6.7 g/dL (6.4-8.2)
[2020-01-13] MEDS: LIPASE/PROTEAS/AMYLAS 10/32/42 CAPSULE.DR. PO SCH ×3 (08:00→17:28)
[2020-01-13] MEDS ORDERED: LIDOCAINE WITH 8.4% SOD BICARB 3 ML DISP.SYRIN. ONE (09:19)
[2020-01-13] MEDS ORDERED: fentaNYL PF VIAL 100 MCG/2 ML VIAL ONE (09:28)
[2020-01-13] MEDS ORDERED: MIDAZOLAM HCL/PF 2 MG/2 ML VIAL. ONE (09:28)
--- NOTE | 2020-01-13 09:50 | PDOC ---
Objective: Objective: Tmax 100.1 Vital Signs: Vital Signs Date Time Temp Pulse Resp B/P (MAP) Pulse Ox O2 Delivery O2 Flow Rate FiO2 01/13/20 09:40 85 26 100 Nasal Cannula 2.0 01/13/20 07:00 100.1 155/83 (107) 100.1 Labs: Laboratory Tests Test 01/13/20 03:41 White Blood Count 3.8 x10^3/uL Red Blood Count 3.45 x10^6/uL Hemoglobin 10.4 g/dL Hematocrit 29.3 % Mean Corpuscular Volume 85 fL Mean Corpuscular Hemoglobin 30 pg Mean Corpuscular Hemoglobin Concent 35 g/dL Red Cell Distribution Width 13.8 % Platelet Count 247 x10^3/uL Neutrophils (%) (Auto) 59 % Lymphocytes (%) (Auto) 24 % Monocytes (%) (Auto) 15 % Eosinophils (%) (Auto) 1 % Basophils (%) (Auto) 1 % Neutrophils # (Auto) 2.2 x10^3/uL Lymphocytes # (Auto) 0.9 x10^3/uL Monocytes # (Auto) 0.6 x10^3/uL Eosinophils # (Auto) 0.0 x10^3/uL Basophils # (Auto) 0.0 x10^3/uL Sodium Level 134 mmol/L Potassium Level 3.4 mmol/L Chloride Level 99 mmol/L Carbon Dioxide Level 24 mmol/L Anion Gap 11 Blood Urea Nitrogen 4 mg/dL Creatinine 0.8 mg/dL Estimated GFR (Cockcroft-Gault) 118.5 BUN/Creatinine Ratio 5 Glucose Level 89 mg/dL Calcium Level 7.8 mg/dL Total Bilirubin 0.5 mg/dL Aspartate Amino Transf (AST/SGOT) 25 U/L Alanine Aminotransferase (ALT/SGPT) 19 U/L Alkaline Phosphatase 45 U/L Total Protein 6.7 g/dL Albumin 2.6 g/dL Albumin/Globulin Ratio 0.6 Was COVID-19 negative again. PE: GEN: IR staff transporting for bone marrow biopsy A/P: Fevers Pancytopenia/ACD -- Out for bone marrow biopsy. GI-patel seems stable on PPI, Colestid, and Zenpep. Will follow. Justicifation of Admission Dx: Justifications for Admission: Justification of Admission Dx: Yes MAGNUS SCHULTE Jan 13, 2020 09:50
[2020-01-13] MEDS ORDERED: LIDOCAINE WITH 8.4% SOD BICARB 3 ML DISP.SYRIN. IJ ONE (10:00)
[2020-01-13] MEDS ORDERED: fentaNYL PF VIAL 100 MCG/2 ML VIAL IV ONE (10:00)
[2020-01-13] MEDS ORDERED: MIDAZOLAM HCL/PF 2 MG/2 ML VIAL. IV ONE (10:00)
--- NOTE | 2020-01-13 10:20 | NUR ---
Patient underwent Bone Marrow biopsy at IR lab, came back to the unit at 1000. He's AOx4, denies pain, BMA site on left hip, with minimal blood, no active bleeding noted, VSS. We'll continue to monitor.
--- NOTE | 2020-01-13 11:29 | PDOC ---
Infectious Disease Note Subjective Subjective Feeling some better Eating 50-100% meals ROS ROS no n/v/d/ fever is improving Vital Sign Vital Signs Vital Signs Date Time Temp Pulse Resp B/P (MAP) Pulse Ox O2 Delivery O2 Flow Rate FiO2 01/13/20 09:52 82 18 99 Nasal Cannula 2.0 01/13/20 07:00 100.1 155/83 (107) 100.1 Physical Exam PHYSICAL EXAM GENERAL: Sitting in the chair, alert, looks better HEENT: Pupils equal and reactive. He has normal conjunctivae. Oral cavity, pharynx is clear. NECK: Supple. Good range of motion. LUNGS: Clear to auscultation bilaterally. HEART: S1, S2. ABDOMEN: Soft, no guarding, no rebound. EXTREMITIES: Without clubbing or cyanosis. No gross edema. NEUROLOGIC: Alert, nonfocal. SKIN: warm to touch. No signs of rash Labs Lab Laboratory Tests Test 01/13/20 03:41 White Blood Count 3.8 x10^3/uL (4.0-11.0) Red Blood Count 3.45 x10^6/uL (4.30-5.70) Hemoglobin 10.4 g/dL (13.0-17.5) Hematocrit 29.3 % (39.0-53.0) Mean Corpuscular Volume 85 fL (79-100) Mean Corpuscular Hemoglobin 30 pg (25-35) Mean Corpuscular Hemoglobin Concent 35 g/dL (31-37) Red Cell Distribution Width 13.8 % (11.5-14.5) Platelet Count 247 x10^3/uL (140-400) Neutrophils (%) (Auto) 59 % (31-73) Lymphocytes (%) (Auto) 24 % (24-48) Monocytes (%) (Auto) 15 % (0-9) Eosinophils (%) (Auto) 1 % (0-3) Basophils (%) (Auto) 1 % (0-3) Neutrophils # (Auto) 2.2 x10^3/uL (1.8-7.7) Lymphocytes # (Auto) 0.9 x10^3/uL (1.0-4.8) Monocytes # (Auto) 0.6 x10^3/uL (0.0-1.1) Eosinophils # (Auto) 0.0 x10^3/uL (0.0-0.7) Basophils # (Auto) 0.0 x10^3/uL (0.0-0.2) Sodium Level 134 mmol/L (136-145) Potassium Level 3.4 mmol/L (3.5-5.1) Chloride Level 99 mmol/L (98-107) Carbon Dioxide Level 24 mmol/L (21-32) Anion Gap 11 (6-14) Blood Urea Nitrogen 4 mg/dL (8-26) Creatinine 0.8 mg/dL (0.7-1.3) Estimated GFR (Cockcroft-Gault) 118.5 BUN/Creatinine Ratio 5 (6-20) Glucose Level 89 mg/dL (70-99) Calcium Level 7.8 mg/dL (8.5-10.1) Total Bilirubin 0.5 mg/dL (0.2-1.0) Aspartate Amino Transf (AST/SGOT) 25 U/L (15-37) Alanine Aminotransferase (ALT/SGPT) 19 U/L (16-63) Alkaline Phosphatase 45 U/L (46-116) Total Protein 6.7 g/dL (6.4-8.2) Albumin 2.6 g/dL (3.4-5.0) Albumin/Globulin Ratio 0.6 (1.0-1.7) Micro Microbiology 01/04/20 Blood Culture - Final, Complete NO GROWTH AFTER 5 DAYS Objective Assessment Fever despite change to Zosyn since 01/04 and previous Flagyl and Cipro ? withdrawl depending on ETOH intake or other process. Nml Procalcitonin. COVID - neg -Born and has lived in . Has not lived anywhere else. -No Foreign travel/ history/Construction or farming. 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 -No TB exposure. No pets -hunting or fishing. No tick exposure -Sister with Cancer times 2 but he does not know the type. No RA/lupus/GI Leukopenia - better still with monocytosis - Elevated CRP. EBV/CMV neg Orthostatic hypotension. Transaminitis - better. Acute kidney injury that has improved. Hyponatremia. History of alcohol abuse Loose stool - C-diff neg 01/01 Plan Plan of Care Awaiting bone marrow biopsy Cont Doxy 01/08 through 01/17 Probiotics Bartonella/NEAL/RA pending D/w nursing RF neg NEAL/Bartonella pending check syphilis/HIV but again denying STD Await Bone marrow MARILIA PORRAS MD Jan 13, 2020 11:29
[2020-01-13] MEDS: LACTOBACILLUS RHAMNOSUS GG 1 CAPSULE. PO SCH ×2 (12:40→21:22)
[2020-01-13] MEDS: PANTOPRAZOLE 40 MG TABLET.DR. PO SCH (12:40)
[2020-01-13] MEDS: POTASSIUM CHLORIDE 20 MEQ TABLET.ER. PO SCH (12:40)
[2020-01-13] MEDS: COLESTIPOL HCL 1 GM TABLET PO SCH ×2 (12:40→21:22)
[2020-01-13] MEDS: DOXYCYCLINE HYCLATE 100 MG TABLET PO SCH ×2 (12:40→21:23)
[2020-01-13] MEDS: DOXAZOSIN MESYLATE 4 MG TABLET. PO SCH (12:41)
[2020-01-13] MEDS: METOPROLOL TART IMMED RELEASE 50 MG TABLET. PO SCH ×2 (12:41→21:23)
--- NOTE | 2020-01-13 14:14 | NUR ---
SW following. Reviewed chart and spoke with RN. Pt had a biopsy today. Discharge plan remains home when stable. SW to continue following.
[2020-01-13] MEDS: ACETAMINOPHEN 325 MG TABLET. PO PRN (15:25)
[2020-01-13 19:07] LABS: ANA INTERP Negative (.)
--- NOTE | 2020-01-13 19:59 | PDOC ---
[facility] PROGRESS NOTE Chief Complaint Chief Complaint Fever of unknown origin Hypotension acute renal failure, vasomotor nephropathy transaminitis, overuse of alcohol, stopped 3 days ago when he started feeling poolry orthostatic hypotension, dry, dehydrated htn, chronic diastolic CHF BPH dyspnea, weakness, diarrhea, poss infectious, would be sepsis, Hypokalemia History of Present Illness History of Present Illness January 13, 2020 Patient seen and examined this morning at bedside after bone marrow biopsy. Patient had fever of 100.1 last night. Patient otherwise is feeling well. Discussed patient with registered nurse hh case manager and RN. COVID has been ruled out Awaiting bone marrow biopsy Cont Doxy 01/08 through 01/17 Probiotics Bartonella/NEAL/RA pending 01/10/2020 Patient seen and examined He is still having low-grade fevers this morning (100.1) Discussed with case management Chart reviewed Discussed with RN repeat COVID-19 test is still pending 01/09/2020 Patient seen and examined Discussed with RN Chart reviewed He is still having fevers 01/08/2020 Patient seen and examined Chart reviewed Discussed with RN He still having fevers 01/07/2020 Patient seen and examined Chart reviewed Discussed with RN 01/05/2020 Patient seen and examined Chart reviewed Discussed with RN He is having low-grade fevers We are going to consult infectious disease for second opinion He is on Flagyl and Cipro currently Still having some diarrhea Complains of some abdominal pain 01/04/2020 Patient seen and examined He is alert but appears weak Discussed with RN Chart reviewed Gave order for potassium replaced 01/03/2020 Patient seen and examined Discussed with RN Chart reviewed Vitals/I&O Vitals/I&O: Vital Signs Date Time Temp Pulse Resp B/P (MAP) Pulse Ox O2 Delivery O2 Flow Rate FiO2 01/13/20 15:00 100.5 88 18 129/91 (104) 96 Room Air 100.5 01/13/20 09:52 2.0 I & O 01/12/20 01/12/20 01/13/20 15:00 23:00 07:00 Output Total 400 ml 250 ml Balance -400 ml -250 ml Physical Exam Physical Exam: GENERAL: Sitting in the chair, alert, looks better HEENT: Pupils equal and reactive. He has normal conjunctivae. Oral cavity, pharynx is clear. NECK: Supple. Good range of motion. LUNGS: Clear to auscultation bilaterally. HEART: S1, S2. ABDOMEN: Soft, no guarding, no rebound. EXTREMITIES: Without clubbing or cyanosis. No gross edema. NEUROLOGIC: Alert, nonfocal. SKIN: warm to touch. No signs of rash General: Alert, Oriented X3, Cooperative, No acute distress Heart: Regular rate Lungs: Clear Abdomen: Normal bowel sounds, Other (Tender with palpation in mid abdomen.) Extremities: No clubbing Skin: No rashes, No breakdown Labs Labs: Laboratory Tests Test 01/13/20 03:41 White Blood Count 3.8 x10^3/uL (4.0-11.0) Red Blood Count 3.45 x10^6/uL (4.30-5.70) Hemoglobin 10.4 g/dL (13.0-17.5) Hematocrit 29.3 % (39.0-53.0) Mean Corpuscular Volume 85 fL (79-100) Mean Corpuscular Hemoglobin 30 pg (25-35) Mean Corpuscular Hemoglobin Concent 35 g/dL (31-37) Red Cell Distribution Width 13.8 % (11.5-14.5) Platelet Count 247 x10^3/uL (140-400) Neutrophils (%) (Auto) 59 % (31-73) Lymphocytes (%) (Auto) 24 % (24-48) Monocytes (%) (Auto) 15 % (0-9) Eosinophils (%) (Auto) 1 % (0-3) Basophils (%) (Auto) 1 % (0-3) Neutrophils # (Auto) 2.2 x10^3/uL (1.8-7.7) Lymphocytes # (Auto) 0.9 x10^3/uL (1.0-4.8) Monocytes # (Auto) 0.6 x10^3/uL (0.0-1.1) Eosinophils # (Auto) 0.0 x10^3/uL (0.0-0.7) Basophils # (Auto) 0.0 x10^3/uL (0.0-0.2) Sodium Level 134 mmol/L (136-145) Potassium Level 3.4 mmol/L (3.5-5.1) Chloride Level 99 mmol/L (98-107) Carbon Dioxide Level 24 mmol/L (21-32) Anion Gap 11 (6-14) Blood Urea Nitrogen 4 mg/dL (8-26) Creatinine 0.8 mg/dL (0.7-1.3) Estimated GFR (Cockcroft-Gault) 118.5 BUN/Creatinine Ratio 5 (6-20) Glucose Level 89 mg/dL (70-99) Calcium Level 7.8 mg/dL (8.5-10.1) Total Bilirubin 0.5 mg/dL (0.2-1.0) Aspartate Amino Transf (AST/SGOT) 25 U/L (15-37) Alanine Aminotransferase (ALT/SGPT) 19 U/L (16-63) Alkaline Phosphatase 45 U/L (46-116) Total Protein 6.7 g/dL (6.4-8.2) Albumin 2.6 g/dL (3.4-5.0) Albumin/Globulin Ratio 0.6 (1.0-1.7) Assessment and Plan Assessmemt and Plan Problems Medical Problems: (1) Orthostatic hypotension Status: Acute (2) Person under investigation for COVID-19 Status: Acute Comment Review of Relevant I have reviewed the following items rhonda (where applicable) has been applied. Medications: Current Medications Medications (Trade) Dose Ordered Sig/Rosa Maria Route PRN Reason Start Time Stop Time Status Last Admin Dose Admin Lidocaine HCl (Buffered Lidocaine 1%) 3 ml 1X ONCE IJ 01/13/20 10:00 01/13/20 10:01 DC 01/13/20 09:52 Midazolam HCl (Versed) 2 mg 1X ONCE IV 01/13/20 10:00 01/13/20 10:01 DC 01/13/20 09:51 Fentanyl Citrate (Fentanyl 2ml Vial) 100 mcg 1X ONCE IV 01/13/20 10:00 01/13/20 10:01 DC 01/13/20 09:51 Justicifation of Admission Dx: Justifications for Admission: Justification of Admission Dx: Yes DALE ROWAN MD Jan 13, 2020 19:59
[2020-01-13] MEDS: ENOXAPARIN 40 MG/0.4 ML SYRINGE. SQ SCH (21:24)
[2020-01-14] MEDS: IV NORMAL SALINE 1000ML BAG 1,000 ML IV SCH ×2 (01:00→09:14)
[2020-01-14 07:00] VITALS: BP 121/75
--- NOTE | 2020-01-14 08:10 | RAD ---
CT-guided bone marrow biopsy. 01/14/2020 6:06 AM Indication: unexplained fevers, infectious diseases will direct further assessment Discussion: The risks and benefits of the procedure, including but not limited to, bleeding and infection were discussed patient. Informed consent was obtained. The patient was brought to the CT scanner and placed in the prone position. A timeout procedure was performed. Typist CT imaging of the pelvis demonstrated left ilium amenable to bone marrow biopsy. The overlying soft tissues were prepped and draped using maximum sterile barrier technique. 1% lidocaine without epinephrine was administered for local anesthesia. Under intermittent CT guidance, an OncControl needle was advanced into the bone marrow of the left iliac crest. 2 Aspirates and 1 core biopsy samples were obtained. Samples were delivered to pathology was present at the time of procedure. The needle was removed and manual pressure held to achieve hemostasis. No immediate complications were identified. The procedure was performed under conscious sedation including continuous cardiopulmonary monitoring via dedicated sedation nurse. Sedation time: 20 minutes Impression: Successful CT-guided bone marrow biopsy of the left iliac crest . PQRS Compliance Statement: One or more of the following individualized dose reduction techniques were utilized for this examination: 1. Automated exposure control 2. Adjustment of the mA and/or kV according to patient size 3. Use of iterative reconstruction technique
[2020-01-14] MEDS: METOPROLOL TART IMMED RELEASE 50 MG TABLET. PO SCH (09:10)
[2020-01-14] MEDS: LIPASE/PROTEAS/AMYLAS 10/32/42 CAPSULE.DR. PO SCH ×2 (09:10→12:13)
[2020-01-14] MEDS: POTASSIUM CHLORIDE 20 MEQ TABLET.ER. PO SCH (09:11)
[2020-01-14] MEDS: COLESTIPOL HCL 1 GM TABLET PO SCH (09:11)
[2020-01-14] MEDS: LACTOBACILLUS RHAMNOSUS GG 1 CAPSULE. PO SCH (09:11)
[2020-01-14] MEDS: DOXAZOSIN MESYLATE 4 MG TABLET. PO SCH (09:11)
[2020-01-14] MEDS: DOXYCYCLINE HYCLATE 100 MG TABLET PO SCH (09:11)
[2020-01-14] MEDS: PANTOPRAZOLE 40 MG TABLET.DR. PO SCH (09:11)
[2020-01-14 09:24] LABS: BASO # 0.1 x10^3/uL (0.0-0.2); BASO % 2 % (0-3); EOS # 0.1 x10^3/uL (0.0-0.7); EOS % 2 % (0-3); HEMATOCRIT 29.4 % (39.0-53.0); HEMOGLOBIN 10.5 g/dL (13.0-17.5); LYMPH # 0.6 x10^3/uL (1.0-4.8); LYMPH % 21 % (24-48); MEAN CORPUSCULAR HEMOGLOBIN 30 pg (25-35); MEAN CORPUSCULAR HGB CONC 36 g/dL (31-37); MEAN CORPUSCULAR VOLUME 84 fL (79-100); MONO # 0.5 x10^3/uL (0.0-1.1); MONO % 17 % (0-9); NEUT # 1.8 x10^3/uL (1.8-7.7); NEUT % 59 % (31-73); PLATELET COUNT 251 x10^3/uL (140-400); RED BLOOD COUNT 3.49 x10^6/uL (4.30-5.70); RED CELL DISTRIBUTION WIDTH 13.8 % (11.5-14.5); WHITE BLOOD COUNT 3.1 x10^3/uL (4.0-11.0)
[2020-01-14 09:44] LABS: CALCIUM 7.8 mg/dL (8.5-10.1); CREATININE 0.7 mg/dL (0.7-1.3); GFR 138.3; MAGNESIUM 1.4 mg/dL (1.8-2.4); PHOSPHORUS 2.5 mg/dL (2.6-4.7)
[2020-01-14 10:01] LABS: POTASSIUM 3.6 mmol/L (3.5-5.1)
--- NOTE | 2020-01-14 10:24 | PDOC ---
Infectious Disease Note Subjective Subjective Feeling good ROS ROS No nausea vomiting diarrhea chest pain shortness of breath Vital Sign Vital Signs Vital Signs Date Time Temp Pulse Resp B/P (MAP) Pulse Ox O2 Delivery O2 Flow Rate FiO2 01/14/20 09:11 80 121/75 01/14/20 07:00 99.6 18 95 Room Air 99.6 01/13/20 09:52 2.0 Physical Exam PHYSICAL EXAM GENERAL: Sitting in the chair, alert, looks better HEENT: Pupils equal and reactive. He has normal conjunctivae. Oral cavity, pharynx is clear. NECK: Supple. Good range of motion. LUNGS: Clear to auscultation bilaterally. HEART: S1, S2. ABDOMEN: Soft, no guarding, no rebound. EXTREMITIES: Without clubbing or cyanosis. No gross edema. NEUROLOGIC: Alert, nonfocal. SKIN: warm to touch. No signs of rash Labs Lab Laboratory Tests Test 01/14/20 03:35 01/14/20 03:38 01/14/20 08:14 White Blood Count 3.1 x10^3/uL (4.0-11.0) Red Blood Count 3.49 x10^6/uL (4.30-5.70) Hemoglobin 10.5 g/dL (13.0-17.5) Hematocrit 29.4 % (39.0-53.0) Mean Corpuscular Volume 84 fL (79-100) Mean Corpuscular Hemoglobin 30 pg (25-35) Mean Corpuscular Hemoglobin Concent 36 g/dL (31-37) Red Cell Distribution Width 13.8 % (11.5-14.5) Platelet Count 251 x10^3/uL (140-400) Neutrophils (%) (Auto) 59 % (31-73) Lymphocytes (%) (Auto) 21 % (24-48) Monocytes (%) (Auto) 17 % (0-9) Eosinophils (%) (Auto) 2 % (0-3) Basophils (%) (Auto) 2 % (0-3) Neutrophils # (Auto) 1.8 x10^3/uL (1.8-7.7) Lymphocytes # (Auto) 0.6 x10^3/uL (1.0-4.8) Monocytes # (Auto) 0.5 x10^3/uL (0.0-1.1) Eosinophils # (Auto) 0.1 x10^3/uL (0.0-0.7) Basophils # (Auto) 0.1 x10^3/uL (0.0-0.2) Sodium Level 134 mmol/L (136-145) Potassium Level 3.6 mmol/L (3.5-5.1) Chloride Level 99 mmol/L (98-107) Carbon Dioxide Level 22 mmol/L (21-32) Anion Gap 13 (6-14) Blood Urea Nitrogen 5 mg/dL (8-26) Creatinine 0.7 mg/dL (0.7-1.3) Estimated GFR (Cockcroft-Gault) 138.3 Glucose Level 82 mg/dL (70-99) Calcium Level 7.8 mg/dL (8.5-10.1) Phosphorus Level 2.5 mg/dL (2.6-4.7) Magnesium Level 1.4 mg/dL (1.8-2.4) Glucose (Fingerstick) 98 mg/dL (70-99) Micro Microbiology 01/04/20 Blood Culture - Final, Complete NO GROWTH AFTER 5 DAYS Objective Assessment Fever despite change to Zosyn since 01/04 and previous Flagyl and Cipro ? withdrawl depending on ETOH intake or other process. Nml Procalcitonin. COVID - neg -Born and has lived in . Has not lived anywhere else. -No Foreign travel/ history/Construction or farming. 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 -No TB exposure. No pets -hunting or fishing. No tick exposure -Sister with Cancer times 2 but he does not know the type. No RA/lupus/GI Leukopenia - better still with monocytosis - Elevated CRP. EBV/CMV neg Orthostatic hypotension. Transaminitis - better. Acute kidney injury that has improved. Hyponatremia. History of alcohol abuse Loose stool - C-diff neg 01/01 Plan Plan of Care Bone marrow done Cont Doxy 01/08 through 01/17 Probiotics Bartonella/NEAL/RA pending D/w nursing RF neg NEAL/Bartonella pending check syphilis/HIV but again denying STD Await Bone marrow MARILIA PORRAS MD Jan 14, 2020 10:24
--- NOTE | 2020-01-14 10:36 | PDOC ---
Subjective: Subjective: Diarrhea is better - now just has soft stools. Eating okay but food is always cold. Objective: Objective: Tmax 100.5 Vital Signs: Vital Signs Date Time Temp Pulse Resp B/P (MAP) Pulse Ox O2 Delivery O2 Flow Rate FiO2 01/14/20 09:11 80 121/75 01/14/20 07:00 99.6 18 95 Room Air 99.6 01/13/20 09:52 2.0 Labs: Laboratory Tests Test 01/14/20 08:14 Glucose (Fingerstick) 98 mg/dL (70-99) PE: GEN: NAD LUNGS: CTAB HEART: RRR ABD: S/ND/NT NEURO/PSYCH: A & O 3 A/P: Fevers - ID and heme/onc following, s/p bone marrow biopsy Pancytopenia/ACD -- Better from GI standpoint, continue same. Justicifation of Admission Dx: Justifications for Admission: Justification of Admission Dx: Yes MAGNUS SCHULTE Jan 14, 2020 10:36
[2020-01-14 11:00] VITALS: BP 123/81
--- NOTE | 2020-01-14 12:41 | NUR ---
SW following. Spoke with RN and CM reviewed chart. Spoke with Dr. Hatch who stated he will discharge pt home today, 01/14/2020. Pt on room air and oral medications. Pt COVID negative. No further SW needs at this time.
[2020-01-14 13:12] LABS: B HENSELAE IGG Negative titer (Neg:<1:320); B QUINTANA IGG Negative titer (Neg:<1:320); B QUINTANA IGM Negative titer (Neg:<1:100); BAR HENSELAE IGM Negative titer (Neg:<1:100)
[2020-01-14] MEDS ORDERED: DOXY100T PO ×2 (13:39→15:26)
--- NOTE | 2020-01-14 13:44 | DISCH ---
DISCHARGE INSTRUCTIONS Condition on Discharge Condition on Discharge: Stable Activity After Discharge Activity Instructions for Disc: Activity as tolerated Lifting Instructions after Dis: Do not lift >10 pounds Exercise Instruction after Dis: Walk 30 min, 5 x per week Weight Bearing Status after Di: As tolerated Diet after Discharge Diet after Discharge: Cardiac Diet Texture: Regular Liquid Texture: Thin Liquid Checks after Discharge Checks after discharge: Check blood press - daily, Check your Temp as needed, Weigh Yourself Daily Contacting the DR. after DC Call your doctor for: Fever greater than 100 Follow-Up Follow up with: Heme-onc for your pathology results Follow Up With: Linoleum Layer Treatment/Equipment after DC Adaptive Equipment Issued: None DALE ROWAN MD Jan 14, 2020 13:44
[2020-01-14 15:00] VITALS: BP 125/71
--- NOTE | 2020-01-14 17:18 | PDOC3 ---
[facility]-Discharge Summary Date of Admission: Date of Admission: Jan 01, 2020 Date of Discharge: Date of Discharge: Jan 14, 2020 Admission Diagnosis: Problems: (1) Syncope (2) Peripheral vascular disease (3) Hyponatremia (4) Hypomagnesemia (5) Dizziness (6) Orthostatic hypotension (7) FUO (fever of unknown origin) Discharge Diagnosis: Discharge Diagnosis: Fever of unknown origin Orthostatic hypotension Syncope Electrolyte derangements Leukopenia Consults: Consults: Infectious disease Gastroenterology Hematology Hospital Course: Hospital Course: 64 year old male sent by primary care at [facility] with a increased shortness of breath, body aches, diaphoretic and fever.he has marked symptoms for 3 days, but he reports not feeling well for 2 weeks. but he stopped drinking his normal pint of gin daily as he did not feel well, likely limited PO intake. noted nausea without vomiting At primary care, noted low blood pressure in the 80s and had a near syncopal episode in the clinic. Patient blood pressure improved during his hospital stay however patient developed persistent fevers and infectious disease was consulted and antibiotics were started. Hematology was also consulted for pancytopenia and the day before his discharge patient was scheduled for bone marrow biopsy in which it was successful sample obtained by CT of the iliac crest. Patient will continue on doxycycline until 01/18/2020. He will follow-up with hematology for pathology results. Rest of the hospital course was uneventful. Disposition: Disposition/Orders: D/C to Home Activity: Activity: Resume previous activity Diet: Diet: Regular Medications: Home Meds Active Scripts Doxycycline Hyclate (DOXYCYCLINE HYCLATE) 100 Mg Tablet, 100 MG PO BID for Fever of unknown origin for 5 Days, #10 TAB Prov:DALE ROWAN MD 01/14/20 [Folic Acid] 1 MG TABLET No Conflict Check, 1 MG PO DAILY for 30 Days Prov:HERNÁN GONZALEZ MD 10/11/19 Multivits,Ca,Minerals/Iron/Fa (THERA-M TABLET) 1 Each Tablet, 1 TAB PO DAILY for etoh use for 30 Days, #30 TAB Prov:HERNÁN GONZALEZ MD 10/11/19 Reported Medications Metoprolol Tartrate (METOPROLOL TARTRATE) 100 Mg Tablet, 1 TAB PO BID for htn], #60 TAB 5 Refills 10/05/19 Amlodipine Besylate (AMLODIPINE BESYLATE) 5 Mg Tablet, 5 MG PO DAILY, TAB 02/16/17 Doxazosin Mesylate (DOXAZOSIN MESYLATE) 4 Mg Tablet, 1 TAB PO DAILY, #30 TAB 5 Refills 02/02/17 Lisinopril (LISINOPRIL) 40 Mg Tablet, 1 TAB PO DAILY, #30 TAB 5 Refills 02/02/17 Scheduled Amlodipine Besylate (Amlodipine Besylate), 5 MG PO DAILY, (Reported) Doxazosin Mesylate (Doxazosin Mesylate), 1 TAB PO DAILY, (Reported) Doxycycline Hyclate (Doxycycline Hyclate), 100 MG PO BID Lisinopril (Lisinopril), 1 TAB PO DAILY, (Reported) Metoprolol Tartrate (Metoprolol Tartrate), 1 TAB PO BID, (Reported) Multivits,Ca,Minerals/Iron/Fa (Thera-M Tablet), 1 TAB PO DAILY [Folic Acid], 1 MG PO DAILY Justicifation of Admission Dx: Justifications for Admission: Justification of Admission Dx: Yes DALE ROWAN MD Jan 14, 2020 17:18
--- NOTE | 2020-01-14 17:31 | NUR ---
Discharge Note: ANNALISA SANCHEZ [address] [place] [address] Discharge instructions and discharge home medications reviewed with Patient and a copy given. All questions have been answered and understanding verbalized. The following instructions and handouts were given: f/u with Dr. Smith with [facility] at [phone]. Discontinued lines and drains: Peripheral IV intact. Patient discharged to Home or Self Care with Family Member via Wheelchair
--- NOTE | 2020-01-16 16:06 | PATHOLOGY ---
[facility] Accession Number: [id number] . 01 Material submitted: . PART A: bone - BONE MARROW BIOPSY PART B: bone - BONE MARROW CLOT PART C: bone - BONE MARROW ASPIRATE SLIDES PART D: bone - PERIPHERAL BLOOD SMEARS PART E: bone - BONE MARROW FLOW . 01 Clinical history: . A 64-year-old man with unexplained fevers, leukopenia and anemia. . 02 Diagnosis: Bone marrow aspirate, biopsy, cell clot and peripheral blood: - Peripheral blood with mild normocytic anemia and mild leukopenia/lymphopenia. - Hypercellular bone marrow with trilineage hematopoiesis, erythroid hyperplasia, mild dyspoiesis and no evidence of lymphoma or acute leukemia. (See comment). . (CLW:[facility]; 01/16/2020) [facility] 01/16/2020 1428 [facility] . 02 Comment: Overall, the bone marrow is hypercellular for the patient's age with trilineage hematopoiesis, erythroid hyperplasia, mild dyspoiesis and no evidence of lymphoma or acute leukemia. The dyspoiesis is mild and while could possibly represent a low grade myelodysplastic syndrome, it does not meet the morphologic criteria for myelodysplasia. Correlation with clinical history, additional laboratory data and cytogenetics is recommended. . (CLW:[facility]; 01/16/2020) . 02 Electronically signed: . July Piedra MD, Pathologist NPI- [id number] . 01 Gross description: . A. The specimen is received in formalin, labeled "Logan Romano, BM BX". Received is are 2 needle cores of light lambert bone measuring 0.7 and 1.3 cm in length by 0.3 cm in diameter admixed with blood clot measuring 1.2 x 0.7 x 0.2 cm in aggregate. The specimen is submitted entirely in cassette A1, following light decalcification. . B. The specimen is received in formalin, labeled "Logan Romano, BM aspirate clot". Received is blood coagulum measuring 2.7 x 2.3 x 0.3 cm in aggregate dimensions. The specimen is filtered and entirely submitted in cassette B1 ([facility]; 01/13/2020) [id number] 01/13/2020 1843 Local . 02 Microscopic: . CBC Data (01/13/20): WBC 3,800/uL, RBC 3.45, hemoglobin 10.4 g/dL, hematocrit 29.3%, MCV 85 fL, MCH 30 pg, MCHC 35 g/dL, RDW 13.8%, and platelet count 247,000/uL. White blood cell differential: segs 59%, lymphs 24%, monos 15%, eos 1%, and basos 1%. . Peripheral Blood Smear: Cytomorphological examination of the Larson's stained peripheral blood smear confirms the provided data. Red blood cells show mild normocytic anemia with no significant anisopoikilocytosis. White blood cells are decreased in number. They are predominantly segmented neutrophils and are without significant dyspoiesis or significant left shift. Lymphocytes are predominantly small, round, and mature appearing with condensed chromatin and scant cytoplasm with admixed large granular lymphocytes. On scanning, no markedly atypical lymphoid cells are seen. Monocytes are mature. Platelets are adequate in number and mainly normal in morphology with rare larger platelets noted. . Aspirate Smears: Cytomorphological examination of the Larson's stained aspirate smears show spicules present. The overall cellularity is approximately 60%. The myeloid to erythroid ratio is 1:1. Full myeloid maturation is identified and is mildly dyspoietic with variable cell sizes and mitotic figures. Erythroid maturation is mildly dyserythropoietic with irregular nuclear contours, nuclear cytoplasmic dyssynchrony, mitotic figures and a rare nuclear bud. In a 500 cell differential, there are 1% blasts (no Yolanda rods are seen), 49% more differentiated myeloids, 45% erythroid precursors, 4% lymphocytes and 1% plasma cells. Megakaryocytes are proportional in number and both normal and abnormal in morphology with variable sizes and nuclear abnormalities including small and/or hypolobated forms present. No lymphoid aggregates or markedly atypical lymphoid cells are seen. Plasma cells are without atypia. Iron stain of the aspirate smear shows 2/4+ iron positivity with spicules present. No ringed sideroblasts are identified. . Core Biopsy and Cell Clot: The decalcified bone marrow core biopsy is adequate. The bone marrow is hypercellular with an overall cellularity of approximately 60% with a focal area increasing to 70%. The myeloid to erythroid ratio is 1:1. Myeloid and erythroid maturation are mildly dyspoietic. Megakaryocytes are normal in number and both normal and abnormal in morphology. A rare interstitial benign-appearing lymphoid aggregate is noted. The lymphoid aggregate has a suggestion of germinal center cell formation. Bony trabeculae and blood vessels are unremarkable. The cell clot has spicules present that are similar in cellularity and differential morphology as previously described. . Properly controlled special stains are performed. . Block A1: Iron - 2/4+ iron positivity; Reticulin - No significant reticulin fibrosis. . Block B1: Iron - 2/4+ iron positivity with spicules present. . Flow Cytometry: Flow cytometric immunophenotypic analysis was performed at [email or web address]. The diagnosis is "no diagnostic immunophenotypic abnormalities detected." There are 8.3% lymphocytes. Of the lymphocytes, there are 65% T-cells with a CD4/CD8 ratio of 1.2 and no aberrant T-cell antigen expression and 16% polyclonal mature B-cells (kappa lambda ratio of 1.5). There are 1.1% CD34 positive cells (blasts) and precursor B-cells are not detected. Please see separate flow cytometry report from [facility] ([id number]). . Cytogenetics Analysis: Cytogenetic chromosomal analysis is pending at [facility] ([id number]). . (CLW:stevie; 01/16/2020) . 02 Pathologist provided ICD-10: D64.9, D72.819, D72.810, D75.89 . 02 CPT . 727221, 277252, 702093, 161392, 259735, 153803, 333992, 459503, 103536 Specimen Comment: A courtesy copy of this report has been sent to [phone], [phone] Specimen Comment: [phone], , Specimen Comment: Report sent to ,DR BILLINGS,DR VASQUEZ / DR ZHU Performed at: [address] [facility] [address], [place], [place] [id number] MD Hernán Bhandari MD Phone: [phone] Performed at: 02 [facility] [address], [place], [place] [id number] MD Bhakti Bolton MD Phone: [phone]
== END 2020-01-14 17:30 | disposition home or self-care (01) | DRG 683 ==
LOC: ER 15:07 → 1 WEST ICU 17:46 → 6 SOUTH 01-02 15:00
PROVIDERS: ADMIT Internal Medicine; ATTEND Internal Medicine
PROC: 07DR3ZX Extraction of Iliac Bone Marrow, Percutaneous Approach, Diagnostic (ICD-10-PCS; principal; 2020-01-14)
DX: N17.0 Acute kidney failure with tubular necrosis (principal); D61.818 Other pancytopenia; E87.1 Hypo-osmolality and hyponatremia; F10.239 Alcohol dependence with withdrawal, unspecified; I50.32 Chronic diastolic (congestive) heart failure; K86.1 Other chronic pancreatitis; J84.9 Interstitial pulmonary disease, unspecified; I95.1 Orthostatic hypotension; E87.6 Hypokalemia; F12.90 Cannabis use, unspecified, uncomplicated; F17.210 Nicotine dependence, cigarettes, uncomplicated; F32.9 Major depressive disorder, single episode, unspecified; G62.9 Polyneuropathy, unspecified; I11.0 Hypertensive heart disease with heart failure; K76.0 Fatty (change of) liver, not elsewhere classified; K86.81 Exocrine pancreatic insufficiency; N40.0 Benign prostatic hyperplasia without lower urinary tract symptoms; Z20.828 Contact with and (suspected) exposure to other viral communicable diseases; Z82.49 Family history of ischemic heart disease and other diseases of the circulatory system; F41.9 Anxiety disorder, unspecified; K21.9 Gastro-esophageal reflux disease without esophagitis; M19.90 Unspecified osteoarthritis, unspecified site; E83.42 Hypomagnesemia; E88.09 Other disorders of plasma-protein metabolism, not elsewhere classified; R19.7 Diarrhea, unspecified; R50.9 Fever, unspecified
CPT/HCPCS: 36415; 36600; 38222; 71045; 71260; 74176; 77012; 80048; 80053; 80307; 81001; 82607; 82710; 82805; 82962; 82977; 83540; 83550; 83605; 83690; 83735; 83880; 83921; 84100; 84132; 84145; 84443; 84484; 85007; 85025; 85610; 86038; 86140; 86431; 86592; 86611; 86644; 86645; 86664; 86665; 86703; 86705; 86709; 86803; 87040; 87340; 87493; 87505; 88184; 88185; 88237; 88305; 88311; 88313; 93005; 93306; 96360; 96361; 99152; 99285; G0480; J1650; J2060; J2250; J2405; J2543; J3010; J3411; J3475; J3490; J7030; Q9967; G0378; U0003-CS

== ENCOUNTER 2020-09-29 19:00 | Emergency (ER) | payer OTHER ==
[~2020-09-29] VITALS: Ht 180.3 cm; Wt 93.0 kg
[~2020-09-29 19:00] MED LIST changes: +AMLO-186 PO; -AMLO5TAB10 PO; +DOXY100T PO; -MULT1TAB90 PO; +MULT1TAB92 PO
--- NOTE | 2020-09-29 19:43 | PHYS DOC ---
Past Medical History Past Medical History: Hypertension Past Surgical History: No Surgical History Smoking Status: Current Every Day Smoker Additional Information: 0.25ppd Alcohol Use: Heavy Additional Information: daily, 1.5 L gin per day Drug Use: Marijuana General Adult EDM: Chief Complaint: ABDOMINAL PAIN HPI: HPI: Patient is a 65-year-old male who presents for epigastric pain. Onset was approximately 3 to 4 days ago without any known inciting event or trauma. Nothing known makes better. Alcohol use among other p.o. intake appears to make worse. Patient reports sharp focal epigastric pain that sometimes radiates to his back. Timing of symptoms has been constant, states pain has intensified over past few hours and is currently 9/10 in severity prompting him to come in for evaluation. Denies ever having pain this severe before. No prior abdominal surgeries. No history of gallstones, no fever, no syncope, no chest pain, no shortness of breath, dysuria, constipation, rectal bleeding. He has no history of known liver cirrhosis or varices. He has a primary care physician, is only on medication for hypertension at present. Admits to drinking 1.5 L gin daily for over 1 year Review of Systems: Review of Systems: Fourteen body systems of review of systems have been reviewed. See HPI for pertinent positives and negative responses, other patel all other systems are negative, non-pertinent or non-contributory Heart Score: C/O Chest Pain: Yes HEART Score for Chest Pain: HEART Score for Chest Pain Response (Comments) Value History Moderately Suspicious 1 Age >45 - < 65 1 Risk Factors 1 or 2 Risk Factors 1 Total 3 Risk Factors: Risk Factors: DM, Current or recent (<one month) smoker, HTN, HLP, family history of CAD, obesity. Risk Scores: Score 0 - 3: 2.5% MACE over next 6 weeks - Discharge Home Score 4 - 6: 20.3% MACE over next 6 weeks - Admit for Clinical Observation Score 7 - 10: 72.7% MACE over next 6 weeks - Early Invasive Strategies Allergies: Allergies: Allergies Coded Allergies Type Severity Reaction Last Updated Verified No Known Drug Allergies 04/03/15 No Physical Exam: PE: Constitutional: Well developed, well nourished, no acute distress, non-toxic appearance. HENT: Normocephalic, atraumatic, bilateral external ears normal, oropharynx moist, no oral exudates, nose normal. Eyes: PERRLA, EOMI, conjunctiva normal, no discharge. Neck: Normal range of motion, no epigastric tenderness to palpation tenderness, supple, no stridor. Cardiovascular: Heart rate regular, sinus rhythm, no murmurs rubs or gallops Lungs & Thorax: Bilateral breath sounds clear to auscultation Abdomen: Bowel sounds normal, soft, epigastric pain with palpation with guarding present, no rebound, no masses, no pulsatile masses. Nonsurgical abdomen, no peritoneal signs Skin: Warm, dry, no erythema, no rash. Back: No tenderness, no CVA tenderness. Extremities: No tenderness, no cyanosis, no clubbing, ROM intact, no edema. Neurologic: Alert and oriented X 3, grossly normal motor & sensory function, no focal deficits noted. Psychologic: Affect normal, judgement normal, mood normal. Current Patient Data: Vital Signs: Vital Signs Date Time Temp Pulse Resp B/P (MAP) Pulse Ox O2 Delivery O2 Flow Rate FiO2 09/29/20 19:15 98.1 78 20 165/94 (117) 98 98.1 EKG: EKG: EKG ordered and interpreted by myself at 1948 hrs. as sinus rhythm at 74 bpm, prolonged TX interval at 232 otherwise unremarkable intervals, no axis deviation, no acute ischemic findings, no STEMI Radiology/Procedures: Radiology/Procedures: ///////////// PROCEDURE: CT ABD PELV W/ IV CONTRST ONLY CT abdomen pelvis with contrast dated 09/29/2020. No comparison available. CLINICAL INDICATION: Epigastric pain. TECHNIQUE: Contiguous axial imaging the abdomen pelvis performed after the administration of 75 cc Omnipaque 300. One or more of the following individualized dose reduction techniques were utilized for this examination: 1. Automated exposure control 2. Adjustment of the mA and/or kV according to patient size 3. Use of iterative reconstruction technique. FINDINGS: Limited images of lung bases are clear. Heart size is within normal limits. No pleural or pericardial effusion. Liver is of diffuse low density suggesting fatty infiltration. No apparent hepatic mass. Gallbladder unremarkable. Spleen, pancreas, adrenal glands and kidneys are unremarkable. No hydronephrosis. Partially opacified GI tract normal in caliber and contour. No focal bowel wall thickening. No inflammatory stranding in the mesentery. The appendix is normal in caliber. No ascites or lymphadenopathy. Abdominal aorta normal in caliber. Small umbilical hernia containing only fat. Images of pelvis show nondistended urinary bladder. Prostate gland is mildly enlarged. No free fluid or pelvic adenopathy. Small bilateral inguinal hernia c ontaining only fat. Bone windows show no acute findings. Multilevel spondylosis. IMPRESSION: 1. No acute abnormality of abdomen or pelvis. Normal appendix. 2. Mild fatty infiltration of the liver. Electronically signed by: Graham Cifuentes MD (09/29/2020 9:05 PM) [facility] [place] Med Decision Making: Course & Med Decision Making Pertinent Labs and Imaging studies reviewed. (See chart for details) [] Dragon Disclaimer: Dragon Disclaimer: This electronic medical record was generated, in whole or in part, using a voice recognition dictation system. Departure Departure Impression: Primary Impression: Alcoholic gastritis Disposition: 01 DC HOME SELF CARE/HOMELESS Condition: IMPROVED Referrals: AISHA VASQUEZ DO (PCP) Patient Instructions: Alcoholic Gastritis-Brief Additional Instructions: You have been evaluated in the Emergency Department today for abdominal pain. Your evaluation was not suggestive of any emergent condition requiring medical intervention at this time. However, some abdominal problems make take more time to appear. Therefore, it is important for you to watch for any new symptoms or worsening of your current condition. As discussed, you are likely suffering from alcoholic gastritis. Please cut back on amount of total alcohol you consume daily as this is contributory to your ongoing epigastric pain. In addition, please take prescribed medication daily as scheduled until you see your outpatient primary care physician I advise you call your PCP first thing tomorrow morning to discuss ER visit today and reviewed need for repeat evaluation in outpatient setting by the end of the week Return to the Emergency Department if you experience worsening pain, persistent fevers greater than 100.4, recurrent vomiting, blood in vomit, blood in stool, dark tarry stool, chest pain, difficulty breathing, or any other concerning symptoms. Scripts Omeprazole (OMEPRAZOLE) 20 Mg Tablet. 1 TAB PO DAILY for GASTRITIS, #30 TAB 3 Refills Prov: LILY BENAVIDES DO 09/29/20 LILY BENAVIDES DO Sep 29, 2020 19:43
[2020-09-29 19:49] LABS: BASO % 1 % (0-3); EOS # 0.1 x10^3/uL (0.0-0.7); EOS % 2 % (0-3); HEMATOCRIT 40.4 % (39.0-53.0); HEMOGLOBIN 13.7 g/dL (13.0-17.5); LYMPH # 2.2 x10^3/uL (1.0-4.8); LYMPH % 53 % (24-48); MEAN CORPUSCULAR HEMOGLOBIN 30 pg (25-35); MEAN CORPUSCULAR HGB CONC 34 g/dL (31-37); MEAN CORPUSCULAR VOLUME 89 fL (79-100); MONO # 0.3 x10^3/uL (0.0-1.1); MONO % 7 % (0-9); NEUT # 1.6 x10^3/uL (1.8-7.7); NEUT % 38 % (31-73); PLATELET COUNT 147 x10^3/uL (140-400); RED BLOOD COUNT 4.53 x10^6/uL (4.30-5.70); RED CELL DISTRIBUTION WIDTH 13.5 % (11.5-14.5); WHITE BLOOD COUNT 4.2 x10^3/uL (4.0-11.0)
[2020-09-29 19:59] LABS: CALCIUM 8.2 mg/dL (8.5-10.1); CREATININE 0.8 mg/dL (0.7-1.3); GFR 118.1; POTASSIUM 3.5 mmol/L (3.5-5.1)
[2020-09-29] MEDS ORDERED: IV NORMAL SALINE 1000ML BAG 1,000 ML IV SCH (20:00)
[2020-09-29] MEDS ORDERED: fentaNYL PF VIAL 100 MCG/2 ML VIAL IVP ONE (20:00)
[2020-09-29] MEDS ORDERED: PANTOPRAZOLE IV PUSH 40 MG VIAL. IVP ONE (20:00)
--- NOTE | 2020-09-29 20:02 | RAD ---
Single view chest dated 09/29/2020: No comparison available. Clinical Indication: Epigastric pain. Findings: Single upright portable exam of the chest was performed. Heart size and mediastinal contours are with in normal limits given technique. The lungs are clear without evidence of focal consolidation. Vascul ar interstitium is within normal limits. Impression:: Negative portable chest. Electronically signed by: Graham Cifuentes MD (09/29/2020 7:59 PM) [facility]
--- NOTE | 2020-09-29 20:03 | EKG ---
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
[2020-09-29 20:05] LABS: ALBUMIN 4.2 g/dL (3.4-5.0); ALBUMIN/GLOBULIN RATIO 1.1 (1.0-1.7); TOTAL BILIRUBIN 0.6 mg/dL (0.2-1.0); TOTAL PROTEIN 7.9 g/dL (6.4-8.2)
[2020-09-29 20:13] VITALS: BP 111/80
[2020-09-29] MEDS ORDERED: CONTRAST GIVEN. MC PRN (20:15)
[2020-09-29] MEDS ORDERED: IOHEXOL 300 MG/ML 100ML VIAL. IV ONE (20:30)
--- NOTE | 2020-09-29 21:07 | RAD ---
CT abdomen pelvis with contrast dated 09/29/2020. No comparison available. CLINICAL INDICATION: Epigastric pain. TECHNIQUE: Contiguous axial imaging the abdomen pelvis performed after the administration of 75 cc Omnipaque 300 . One or more of the following individualized dose reduction techniques were utilized for this examinat ion: 1. Automated exposure control 2. Adjustment of the mA and/or kV according to patient size 3. Use of iterative reconstruction technique. FINDINGS: Limited images of lung bases are clear. Heart size is within normal limits. No pleural or pericardial effusion. Liver is of diffuse low density suggesting fatty infiltration. No apparent hepatic mass. Gallbladder unremarkable. Spleen, pancreas, adrenal glands and kidneys are unremarkable. No hydronephrosis. Partially opacified GI tract normal in caliber and contour. No focal bowel wall thickening. No inflam matory stranding in the mesentery. The appendix is normal in caliber. No ascites or lymphadenopathy. Abdominal aorta normal in caliber. Small umbilical hernia containing only fat. Images of pelvis show nondistended urinary bladder. Prostate gland is mildly enlarged. No free fluid or pelvic adenopathy. Small bilateral inguinal hernia containing only fat. Bone windows show no acute findings. Multilevel spondylosis. IMPRESSION: 1. No acute abnormality of abdomen or pelvis. Normal appendix. 2. Mild fatty infiltration of the liver. Electronically signed by: Graham Cifuentes MD (09/29/2020 9:05 PM) [facility]
[2020-09-29] MEDS ORDERED: OMEP20TA8 PO (21:13)
== END 2020-09-29 21:30 | disposition home or self-care (01) ==
LOC: ER 19:00
DX: K29.20 Alcoholic gastritis without bleeding (principal); F10.10 Alcohol abuse, uncomplicated; R10.13 Epigastric pain; I10 Essential (primary) hypertension; F17.200 Nicotine dependence, unspecified, uncomplicated; F12.90 Cannabis use, unspecified, uncomplicated
CPT/HCPCS: 36415; 71045; 74177; 80053; 83690; 84484; 85025; 93005; 96361; 96374; 96375; 99285; C9113; J3010; J7030; Q9967

== ENCOUNTER 2021-04-07 21:26 | Inpatient (IN) | payer OTHER ==
[~2021-04-07] VITALS: Ht 177.8 cm; Wt 88.7 kg
[~2021-04-07 21:26] MED LIST changes: +ALBU2.5V8 INH; +ATOR10TA60 PO; +NAPR-514 PO; +OMEP20TA8 PO; +OMEP40CA7 PO; +POTA-116 PO
--- NOTE | 2021-04-07 21:45 | PHYS DOC ---
Past Medical History Past Medical History: Alcoholism, Hypertension Past Surgical History: No Surgical History Smoking Status: Current Every Day Smoker Alcohol Use: Heavy Drug Use: Marijuana General Adult EDM: Chief Complaint: ALTERED MENTAL STATUS HPI: HPI: Patient is a 66-year-old male presenting via POV for altered mental status. He is accompanied by his niece and nephew. Patient lives alone and has longstanding history of alcohol dependence and history of recurrent falls. He has been hospitalized at our facility numerous times. Family reports patient h as been more confused than usual for past 3 days without any known inciting event, trauma, ingestion or other allergen. They saw patient yesterday evening and noticed he was more confused than usual. When checking on him this morning he continued to tell stories that were not factual which concerned them. They also report that patient was complaining of urinary retention for past 24 to 48 hours. Ongoing symptoms prompted niece and nephew to transport patient to our facility. On arrival, patient had a witnessed fall in the parking lot, it is unclear if he hit his head, no loss of consciousness reported. He was immediately brought back to our ER trauma bay. On evaluation, patient has no complaints. He does admit he drank a beer or 2 earlier today. Niece and nephew at bedside, admit there have been no recent medication changes or major changes in baseline health. He has been vaccinated against COVID-19 with x2 Moderna Review of Systems: Review of Systems: Fourteen body systems of review of systems have been reviewed. See HPI for pertinent positives and negative responses, other patel all other systems are negative, non-pertinent or non-contributory Heart Score: C/O Chest Pain: No Risk Factors: Risk Factors: DM, Current or recent (<one month) smoker, HTN, HLP, family history of CAD, obesity. Risk Scores: Score 0 - 3: 2.5% MACE over next 6 weeks - Discharge Home Score 4 - 6: 20.3% MACE over next 6 weeks - Admit for Clinical Observation Score 7 - 10: 72.7% MACE over next 6 weeks - Early Invasive Strategies Allergies: Allergies: Allergies Coded Allergies Type Severity Reaction Last Updated Verified No Known Drug Allergies 04/03/15 No Physical Exam: PE: Constitutional: Well developed, age-appropriate in no acute distress, nontoxic in appearance, does appear confused and telling funny stories. GCS 13 (E4, V4, M6) HENT: Normocephalic, atraumatic, bilateral external ears normal, oropharynx dry with poor dentition, no midface instability, no oral exudates, nose normal. Eyes: PERRLA, EOMI, conjunctiva normal, no discharge. Neck: Normal range of motion, no tenderness, supple, no stridor. Cardiovascular: Heart rate regular, sinus rhythm, no murmurs rubs or gallops Lungs & Thorax: Bilateral breath sounds clear to auscultation Abdomen: Bowel sounds normal, soft, no tenderness, no masses, no pulsatile mas ses. Nonsurgical abdomen, no peritoneal signs Skin: Warm, dry, no erythema, no rash. Back: No tenderness, no CVA tenderness. Extremities: No tenderness, no cyanosis, no clubbing, ROM intact, no edema. Neurologic: Alert and oriented X 3, cranial nerves II through XII intact, normal motor & sensory function, no focal deficits noted. Psychologic: Unable to fully assess. Patient does not have full capacity. Current Patient Data: Labs: Laboratory Tests Test 04/07/21 21:33 04/07/21 22:00 04/07/21 22:20 04/07/21 23:55 Glucose (Fingerstick) 119 mg/dL SARS-CoV-2 Antigen (Rapid) Negative White Blood Count 11.7 x10^3/uL Red Blood Count 4.56 x10^6/uL Hemoglobin 13.9 g/dL Hematocrit 40.2 % Mean Corpuscular Volume 88 fL Mean Corpuscular Hemoglobin 30 pg Mean Corpuscular Hemoglobin Concent 35 g/dL Red Cell Distribution Width 15.6 % Platelet Count 120 x10^3/uL Neutrophils (%) (Auto) 84 % Lymphocytes (%) (Auto) 8 % Monocytes (%) (Auto) 8 % Eosinophils (%) (Auto) 0 % Basophils (%) (Auto) 0 % Neutrophils # (Auto) 9.9 x10^3/uL Lymphocytes # (Auto) 0.9 x10^3/uL Monocytes # (Auto) 0.9 x10^3/uL Eosinophils # (Auto) 0.0 x10^3/uL Basophils # (Auto) 0.0 x10^3/uL Sodium Level 133 mmol/L Potassium Level 3.5 mmol/L Chloride Level 89 mmol/L Carbon Dioxide Level 17 mmol/L Anion Gap 27 Blood Urea Nitrogen 36 mg/dL Creatinine 5.3 mg/dL Estimated GFR (Cockcroft-Gault) 13.3 BUN/Creatinine Ratio 7 Glucose Level 126 mg/dL Lactic Acid Level 6.5 mmol/L Calcium Level 8.8 mg/dL Magnesium Level 1.4 mg/dL Total Bilirubin 2.1 mg/dL Aspartate Amino Transf (AST/SGOT) 509 U/L Alanine Aminotransferase (ALT/SGPT) 154 U/L Alkaline Phosphatase 62 U/L Troponin I Quantitative 0.044 ng/mL Total Protein 8.8 g/dL Albumin 5.0 g/dL Albumin/Globulin Ratio 1.3 Salicylates Level < 2.8 mg/dL Salicylate Last Dose Date Unk Salicylate Last Dose Time Unk Acetaminophen Level < 2 mcg/ml Acetaminophen Last Dose Date Unk Acetaminophen Last Dose Time Unk Ethyl Alcohol Level < 10 mg/dL Ammonia 30 mcmol/L Test 04/08/21 00:01 04/08/21 00:20 04/08/21 01:32 Bedside Hematocrit 40 % Arterial Blood pH (Temp corrected) 7.26 Arterial Blood pCO2 (Temp correct) 35 mmHg Arterial Blood pO2 (Temp corrected) 45 mmHg Bedside Venous pH 7.26 Bedside Venous pCO2 35 mmHg Bedside Venous pO2 45 mmHg Bedside Venous HCO3 16 mmol/L Bedside Venous Blood Total CO2 17 mmol/L Bedside Venous Blood O2 Saturation 74 % Bedside Venous Blood Base Excess -12 mmol/L POC Venous Hemoglobin (Calc) 13.6 g/dL Bedside FiO2 21 Bedside Sodium 134 mmol/L Bedside Potassium 3.3 mmol/L Glucose Level 114 mg/dL Bedside Ionized Calcium (Jean) 1.07 mmol/L Urine Collection Type Unknown Urine Color Tova Urine Clarity Turbid Urine pH 5.5 Urine Specific [place] 1.025 Urine Protein >=300 mg/dL Urine Glucose (UA) Negative mg/dL Urine Ketones (Stick) 15 mg/dL Urine Blood Large Urine Nitrite Negative Urine Bilirubin Moderate Urine Urobilinogen Dipstick 1.0 mg/dL Urine Leukocyte Esterase Negative Urine RBC 3-5 /HPF Urine WBC 1-4 /HPF Urine Squamous Epithelial Cells Mod /LPF Urine Amorphous Sediment Present /HPF Urine Bacteria Few /HPF Urine Hyaline Casts Many /HPF Urine Granular Casts Occasional /HPF Urine Mucus Marked /LPF Urine Opiates Screen Neg Urine Methadone Screen Neg Urine Barbiturates Neg Urine Phencyclidine Screen Neg Urine Amphetamine/Methamphetamine Neg Urine Benzodiazepines Screen Neg Urine Cocaine Screen Neg Urine Cannabinoids Screen Pos Urine Ethyl Alcohol Neg Lactic Acid Level 2.8 mmol/L Current Medications Medications (Trade) Dose Ordered Sig/Rosa Maria Route PRN Reason Start Time Stop Time Status Last Admin Dose Admin Sodium Chloride 1,000 ml @ 1,000 mls/hr 1X ONCE IV 04/07/21 22:00 04/07/21 22:59 DC 04/07/21 21:50 Vital Signs: Vital Signs Date Time Temp Pulse Resp B/P (MAP) Pulse Ox O2 Delivery O2 Flow Rate FiO2 04/07/21 21:26 98.6 109 22 120/77 (91) 98 Room Air 98.6 Vital Signs Date Time Temp Pulse Resp B/P (MAP) Pulse Ox O2 Delivery O2 Flow Rate FiO2 04/07/21 22:45 107 22 100/76 (84) 93 04/07/21 22:15 Room Air 04/07/21 21:26 98.6 98.6 EKG: EKG: EKG ordered and interpreted by myself at 2143 hrs. as sinus rhythm at 108 bpm, unremarkable intervals, no axis deviation, significant artifact present but no obvious STEMI noted Radiology/Procedures: Radiology/Procedures: INDICATION: Reason: ALTERED MENTATION WITH FALL IN PARKING LOT TO HEAD NO LOC / Spl. Instructions: / History: . COMPARISON: CT head from October 2019 TECHNIQUE: Axial CT images obtained through the head and cervical spine. One or more of the following individualized dose reduction techniques were utilized for this examination: 1. Automated exposure control; 2. Adjustment of the mA and/or kV according to patient size; 3. Use of iterative reconstruction technique. FINDINGS: Head: No midline shift. Suprasellar cistern is not effaced. Diffuse prominence of ventricles and sulci which can be seen with age-related volume loss. Scattered foci of low density within the white matter. Nonspecific but can be from chronic small vessel ischemic disease. Calcifications bilateral basal ganglia. Calcific atherosclerosis. No acute intracranial hemorrhage. Cervical spine: Degenerative changes throughout the cervical spine with osteophyte formation at the vertebral body endplates as well as disc protrusions with facet and uncovertebral hypertrophy with multilevel central canal and neural foraminal stenosis. Prevertebral soft tissues unremarkable. Mild retrolisthesis of C5 on 6. Mucosal thickening of partially seen maxillary sinuses. There is an impacted left mandibular tooth posteriorly with surrounding lucent structure measuring 2 cm which could be from causes such as a dentigerous cyst or periapical abscess formation. There is some erosion of the base of the adjacent molar. There is a suspected small lucent lesion at C7 on the right abutting the facet joint measuring approximately 9 mm. Nonspecific appearance with causes such as cyst formation within the differential. Calcific atherosclerosis. IMPRESSION: * No acute intracranial hemorrhage. * Scattered foci of low density within the white matter. Nonspecific but can be seen with chronic small vessel ischemic disease. * Degenerative changes throughout the cervical spine with multilevel central canal and neural foraminal stenosis without a definite acute fracture line seen. * Odontogenic disease. Electronically signed by: Delon Nash MD (04/07/2021 10:54 PM) [facility]- [id number] ////////////////////// INDICATION: Reason: WITNESSED FALL, ALTERED MENTATION / Spl. Instructions: / History: COMPARISON: November 17, 2020 FINDINGS: Single view of chest obtained. Mild hypoexpansion. Cardiac silhouette is unremarkable. There is some air-filled prominent loops of bowel in the upper abdomen partially seen. No focal airspace consolidation. IMPRESSION: * No focal airspace consolidation or edema. * Air-filled distention of partially visualized bowel loops at the upper abdomen Electronically signed by: Delon Nash MD (04/07/2021 11:28 PM) [facility]- [id number] Course & Med Decision Making: Course & Med Decision Making Airway patent, breathing unlabored, IV access and vitals obtained concerning for hypotension HPI from patient limited, physical examination and comprehensive ER work-up performed concerning for metabolic encephalopathy, electrolyte imbalance, HERMELINDO, high anion gap acidosis and positive THC There was reported urinary retention but bedside bladder scan unremarkable. Symptoms and subsequent HERMELINDO likely due to UTI? BUN/Cr indicates intra-renal/ATN source requiring nephrology consultation and work-up Makeshift banana bag administered given patient's history of alcohol dependence. Further 2 L IV fluid administered while in ER setting. 1 g Rocephin administered I updated patient and family members to notify in my recommendation for admission all of which were amenable. I contacted hospitalist and discussed ne ed for admission, they were amenable. Patient is full CODE STATUS at time of admission Patient initially admitting to Dr. Hatch. This was later corrected and admitted under care of Dr. Tinajero who serves as patient's PCP as well Mckayla Disclaimer: Mckayla Disclaimer: This electronic medical record was generated, in whole or in part, using a voice recognition dictation system. Departure Departure Impression: Primary Impression: Metabolic encephalopathy Additional Impressions: HERMELINDO (acute kidney injury) EtOH dependence History of recent fall Hypomagnesemia Disposition: ADMITTED INPATIENT Admitting Physician: HIMS (dr hatch) Condition: STABLE Referrals: ABIGAIL TINAJERO MD (PCP) LILY BENAVIDES DO Apr 07, 2021 21:45
[2021-04-07] MEDS ORDERED: IV NORMAL SALINE 1000ML BAG 1,000 ML IV ONE ×2 (22:00→23:45)
[2021-04-07 22:38] LABS: BASO % 0 % (0-3); EOS % 0 % (0-3); HEMATOCRIT 40.2 % (39.0-53.0); HEMOGLOBIN 13.9 g/dL (13.0-17.5); LYMPH # 0.9 x10^3/uL (1.0-4.8); LYMPH % 8 % (24-48); MEAN CORPUSCULAR HEMOGLOBIN 30 pg (25-35); MEAN CORPUSCULAR HGB CONC 35 g/dL (31-37); MEAN CORPUSCULAR VOLUME 88 fL (79-100); MONO # 0.9 x10^3/uL (0.0-1.1); MONO % 8 % (0-9); NEUT # 9.9 x10^3/uL (1.8-7.7); NEUT % 84 % (31-73); PLATELET COUNT 120 x10^3/uL (140-400); RED BLOOD COUNT 4.56 x10^6/uL (4.30-5.70); RED CELL DISTRIBUTION WIDTH 15.6 % (11.5-14.5); WHITE BLOOD COUNT 11.7 x10^3/uL (4.0-11.0)
[2021-04-07 22:51] LABS: CALCIUM 8.8 mg/dL (8.5-10.1); CREATININE 5.3 mg/dL (0.7-1.3); GFR 13.3; POTASSIUM 3.5 mmol/L (3.5-5.1)
[2021-04-07 22:57] LABS: ALBUMIN/GLOBULIN RATIO 1.3 (1.0-1.7); TOTAL BILIRUBIN 2.1 mg/dL (0.2-1.0); TOTAL PROTEIN 8.8 g/dL (6.4-8.2)
--- NOTE | 2021-04-07 22:57 | RAD ---
INDICATION: Reason: ALTERED MENTATION WITH FALL IN PARKING LOT TO HEAD NO LOC / Spl. Instructions: / History: . COMPARISON: CT head from October 2019 TECHNIQUE: Axial CT images obtained through the head and cervical spine. One or more of the following individualized dose reduction techniques were utilized for this examinat ion: 1. Automated exposure control; 2. Adjustment of the mA and/or kV according to patient size; 3 . Use of iterative reconstruction technique. FINDINGS: Head: No midline shift. Suprasellar cistern is not effaced. Diffuse prominence of ventricles and sulci which can be seen with age-related volume loss. Scattered foci of low density within the white matter. Nonspecific but can be from chronic small vess el ischemic disease. Calcifications bilateral basal ganglia. Calcific atherosclerosis. No acute intracranial hemorrhage. Cervical spine: Degenerative changes throughout the cervical spine with osteophyte formation at the vertebral body en dplates as well as disc protrusions with facet and uncovertebral hypertrophy with multilevel central canal and neural foraminal stenosis. Prevertebral soft tissues unremarkable. Mild retrolisthesis of C5 on 6. Mucosal thickening of partially seen maxillary sinuses. There is an impacted left mandibular tooth po steriorly with surrounding lucent structure measuring 2 cm which could be from causes such as a denti gerous cyst or periapical abscess formation. There is some erosion of the base of the adjacent molar. There is a suspected small lucent lesion at C7 on the right abutting the facet joint measuring appro ximately 9 mm. Nonspecific appearance with causes such as cyst formation within the differential. Calcific atherosclerosis. IMPRESSION: * No acute intracranial hemorrhage. * Scattered foci of low density within the white matter. Nonspecific but can be seen with chronic sm all vessel ischemic disease. * Degenerative changes throughout the cervical spine with multilevel central canal and neural forami nal stenosis without a definite acute fracture line seen. * Odontogenic disease. Electronically signed by: Delon Nash MD (04/07/2021 10:54 PM) [id number]
[2021-04-07] MEDS ORDERED: FOLIC ACID 1 MG TABLET. PO ONE (23:00)
[2021-04-07] MEDS ORDERED: THIAMINE INJ 100 MG in IV DEXTROSE 5% 50 ML IV ONE (23:00)
[2021-04-07 23:04] LABS: ACETAMIN < 2 mcg/ml (10-30); ETHANOL < 10 mg/dL (0-10); SALIC < 2.8 mg/dL (2.8-20.0)
--- NOTE | 2021-04-07 23:31 | RAD ---
INDICATION: Reason: WITNESSED FALL, ALTERED MENTATION / Spl. Instructions: / History: COMPARISON: November 17, 2020 FINDINGS: Single view of chest obtained. Mild hypoexpansion. Cardiac silhouette is unremarkable. There is some air-filled prominent loops of bowel in the upper abdomen partially seen. No focal airspace consolidation. IMPRESSION: * No focal airspace consolidation or edema. * Air-filled distention of partially visualized bowel loops at the upper abdomen Electronically signed by: Delon Nash MD (04/07/2021 11:28 PM) [id number]
[2021-04-07] MEDS ORDERED: cefTRIAXone IV Push 1 GM VIAL. IVP ONE (23:45)
[2021-04-08] VITALS (9 sets, daily range): BP systolic 78–120; BP diastolic 53–71
[2021-04-08 00:06] LABS: CORRECTED PCO2 35 mmHg; CORRECTED PH 7.26; CORRECTED PO2 45 mmHg; FIO2 ISTAT 21; VEN BASE EXCESS ISTAT -12 mmol/L (0-3); VEN GLUC ISTAT 114 mg/dL (70-99); VEN HCO3 ISTAT 16 mmol/L (24-28); VEN HCT ISTAT 40 % (37-52); VEN HGB ISTAT 13.6 g/dL (14-18); VEN ION CA ISTAT 1.07 mmol/L (1.13-1.32); VEN K ISTAT 3.3 mmol/L (3.5-5.0); VEN NA ISTAT 134 mmol/L (135-145); VEN O2 ISTAT 45 mmHg (20-40); VEN PCO2 ISTAT 35 mmHg (41-51); VEN PH ISTAT 7.26 (7.32-7.42); VEN SO2 ISTAT 74 %; VEN TCO2 ISTAT 17 mmol/L (21-32)
[2021-04-08] MEDS ORDERED: NITROGLYCERIN SUBLINGUAL 0.4 MG BOTTLE OF 25. SL PRN (00:15)
[2021-04-08] MEDS ORDERED: ONDANSETRON PF 4 MG/2 ML VIAL. IVP PRN (00:15)
[2021-04-08] MEDS ORDERED: ACETAMINOPHEN 325 MG TABLET. PO PRN (00:15)
[2021-04-08 00:28] LABS: BILIRUBIN,URINE MODERATE (NEG); CLARITY,URINE TURBID; COLOR,URINE AMBER; NITRITE,URINE NEGATIVE (NEG); PH,URINE 5.5 (<5.0-8.0); PROTEIN,URINE >=300 mg/dL (NEG-TRACE)
[2021-04-08] MEDS ORDERED: MAGNESIUM SULFATE 2GM 50 ML IV ONE ×2 (00:30→10:00)
[2021-04-08 00:34] LABS: BARBITURATES NEG (NEG); BENZODIAZEPINES NEG (NEG); CANNABINOIDS POS (NEG); COCAINE NEG (NEG); METHADONE NEG (NEG); OPIATES NEG (NEG); PHENCYCLIDINE NEG (NEG)
[2021-04-08 00:39] LABS: AMPHETAMINE/METHAMPHETAMINE NEG (NEG)
[2021-04-08 00:42] LABS: AMORPHOUS SEDIMENT,UR PRESENT /HPF; BACTERIA,URINE FEW /HPF (0-FEW); GRANULAR CASTS,URINE OCCASIONAL /HPF; HYALINE CASTS, URINE MANY /HPF
[2021-04-08] MEDS ORDERED: HALOPERIDOL LACTATE 5 MG/ML VIAL. IVP PRN (02:15)
[2021-04-08] MEDS ORDERED: cloNIDine HCL 0.1 MG TABLET PO PRN (02:15)
[2021-04-08] MEDS ORDERED: diphenhydrAMINE 50 MG/ML VIAL IVP PRN (02:15)
[2021-04-08] MEDS ORDERED: naproxen PO (02:16)
[2021-04-08] MEDS: POTASSIUM CHLORIDE 10MEQ 100 ML IV SCH ×4 (03:51→08:20)
[2021-04-08] MEDS ORDERED: IV NORMAL SALINE 1000ML BAG 1,000 ML IV ONE (04:00)
[2021-04-08] MEDS ORDERED: IV NORMAL SALINE 1000ML BAG 1,000 ML IV SCH (05:00)
--- NOTE | 2021-04-08 07:13 | EKG ---
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
[2021-04-08] MEDS ORDERED: THIAMINE INJ 100 MG in IV DEXTROSE 5% 50 ML IV SCH (09:00)
[2021-04-08] MEDS ORDERED: FOLIC ACID 1 MG TABLET. PO SCH (09:00)
[2021-04-08] MEDS: MULTIVITAMIN with MINERAL TABLET. PO SCH (09:11)
[2021-04-08] MEDS: FOLIC ACID 1 MG TABLET. PO SCH (09:11)
[2021-04-08] MEDS: THIAMINE 100 MG TABLET. PO SCH (09:11)
--- NOTE | 2021-04-08 09:42 | PDOC ---
Provider Note Date of Service: DATE: 04/08/21 TIME: 09:41 Provider Note Pt seen.H&P dictated.#[id number] Justifications for Admission Other Justification ABIGAIL TINAJERO MD Apr 08, 2021 09:42
--- NOTE | 2021-04-08 10:07 | HP ---
ADMIT DATE: 04/08/2021 REASON FOR ADMISSION TO THE HOSPITAL: Alcoholism, acute kidney failure. HISTORY OF PRESENT ILLNESS: The patient is a 66-year-old male patient known to me. The patient has a history of alcoholism and was admitted to the hospital 6 months ago for pancreatitis. He was doing relatively well and had been drinking lately, was brought into the hospital with mental status changes, accompanied by his family, niece and nephew, longstanding history of alcohol, recurrent falls, more confused lately and CT head was negative. The patient had a kidney failure with creatinine of 5, normal creatinine 6 months ago and the patient has a low magnesium and potassium. The patient was given banana bag and thiamine, replaced magnesium and potassium, and the patient was admitted to the hospital. PAST MEDICAL HISTORY: Hypertension, alcoholism, history of pancreatitis in the past secondary to alcohol. PAST SURGICAL HISTORY: No major surgeries. ALLERGIES: None. PERSONAL HISTORY: Heavy alcohol at least 6 packs of hard liquor, also marijuana use. FAMILY HISTORY: Unremarkable. MEDICATIONS AT HOME: The patient is supposed to be on amlodipine 5 mg, atorvastatin 10 mg, lisinopril 40 mg, multivitamin daily, metoprolol 100 mg twice a day, omeprazole 40 mg daily and albuterol inhaler. PHYSICAL EXAMINATION: GENERAL: The patient is awake, making conversation, little bit shaky. He remembers my name. VITAL SIGNS: At the time of admission shows temperature 98, pulse 109, respirations 22, blood pressure 120/77, and 98 on room air. HEENT: Head is atraumatic. Pupils are equal. Oral cavity, no congestion. NECK: Supple. Thyroid not enlarged. JVD not elevated. CHEST: Symmetrical. CARDIOVASCULAR: S1, S2. LUNGS: Clear. ABDOMEN: Soft. No mass palpable. EXTERNAL GENITALIA: No Bethea. RECTUM: Deferred. EXTREMITIES: No calf tenderness, no edema. NEUROLOGIC: Moving all extremities. Shakiness of the upper extremities. LABORATORY DATA: Shows a white count 11, hemoglobin 13, platelets 120. Electrolytes show lactic acid 6.5, came down to 2.8, sodium 133, potassium 3.5, chloride 89, bicarbonate 17, anion gap 27, BUN 36, creatinine 5.3, glucose 126. Bilirubin 2.1, AST 509, ALT 151. Troponin 0.04. Rapid COVID test was negative. Urine drug screen was ethyl alcohol less than 10, thus was negative. Urine shows more than 300 protein, large blood in the urine, but rbc's only 3-5. Blood gas shows pH 7.6, pCO2 of 35, pO2 of 45. FINAL IMPRESSION: 1. Acute alcoholism. 2. Acute kidney failure secondary to dehydration. 3. Increased anion gap metabolic acidosis secondary to lactic acidosis as well as acute kidney failure. 4. Hypertension. 5. Chronic pancreatitis. 6. Chronic alcoholism. PLAN: At this time, was admitted to the hospital, was given banana bag with thiamine, multivitamin and also magnesium, hydrate with IV fluids. Had a bladder scan negative for hydronephrosis or bladder retention. CT head was negative. We will give thiamine and also Ativan, watch for DTs, also monitor kidney function and hydration with IV fluids with potassium and replace magnesium. We will get health care social worker consult for inpatient alcohol rehab program. JUDITH DR: [place]/solitario TID: [id number]
[2021-04-08] MEDS: POTASSIUM CL 20MEQ D5-0.9%NACL 1,000 ML IV SCH ×2 (10:12→20:54)
--- NOTE | 2021-04-08 11:24 | NUR ---
SW following. Discussed with RN, pt from home alone or with family (pt won't be clear in answering some questions), 2L PRN, regular diet, rapid COVID-19 negative. HUGH consulted for ETOH. Nephrology following. RN advised no SW needs at this time. DAMIEN will continue to follow. Addendum: 04/08/21 at 1420 by IVON ALFARO SW Avery RAMIREZ) met with pt, pt declining any need or desire for help. Pt cleared by PAT team.
--- NOTE | 2021-04-08 11:57 | PDOC2 ---
CONSULT Date of Consult Date of Consult DATE: 04/08/21 TIME: 11:39 Reason for Consult Reason for Consult: HERMELINDO Source Source: Chart review History of Present Illness Reason for Visit: Patient is a 66-year-old AA male with history of alcoholism , he as admitted to the [facility] 6 months ago for pancreatitis. .He was brought into the hospital with mental status changes, accompanied by his niece and nephew. He has longstanding history of alcohol, recurrent falls. H He lives alone - per family reports patient has been more confused than usual for past 3 days, no known inciting event, no trauma . Family went to check on him yesterday morning he continued to tell stories that were not factual which concerned them. Per family he was also complaining of urinary retention for past 24 to 48 hours. On arrival, he had a witnessed fall in the parking lot , no loss of co nsciousness reported. He was brought back to the ER trauma He denies any complaints . Denies any recent medication changes He has been vaccinated against COVID-19 with x2 Moderna No N/V/D. No F/C. No Dysuria , hematuria. No abdominal or Flank or SP pain. No CP or SOB CT head negative. Home Med list-- amlodipine 5 mg, atorvastatin 10 mg, lisinopril 40 mg, multivitamin daily, metoprolol 100 mg twice a day, omeprazole 40 mg daily and albuterol inhaler. Past Medical History Cardiovascular: HTN Hepatobiliary: No pertinent hx Psych: No pertinent hx Musculoskeletal: low back pain, Osteoarthritis Endocrine: No pertinent hx Past Surgical History Past Surgical History No major surgeries. Past Surgical History: Other Family History Family History Non contributory Family History: High Cholestrol, Hypertension Social History Social History Heavy alcohol at least 6 packs of hard liquor, also marijuana use. Live alone ALCOHOL: heavy Drugs: Marijuana Current Problem List Problem List Problems Medical Problems: (1) HERMELINDO (acute kidney injury) Status: Acute (2) EtOH dependence Status: Acute (3) History of recent fall Status: Acute (4) Hypomagnesemia Status: Acute (5) Metabolic encephalopathy Status: Acute Current Medications Current Medications Current Medications Folic Acid (Folic Acid) 1 mg DAILY PO ; Start 04/08/21 at 09:00; Stop 04/07/21 at 22:55; Status DC Thiamine HCl 100 mg/Dextrose 51 ml @ 102 mls/hr DAILY IV ; Start 04/08/21 at 09:00; Stop 04/07/21 at 22:55; Status DC Sodium Chloride 1,000 ml @ 1,000 mls/hr 1X ONCE IV Last administered on 04/07/21at 21:50; Start 04/07/21 at 22:00; Stop 04/07/21 at 22:59; Status DC Thiamine HCl 100 mg/Dextrose 51 ml @ 102 mls/hr 1X ONCE IV Last administered on 04/07/21at 23:36; Start 04/07/21 at 23:00; Stop 04/07/21 at 23:29; Status DC Folic Acid (Folic Acid) 1 mg 1X ONCE PO Last administered on 04/08/21at 00:05; Start 04/07/21 at 23:00; Stop 04/07/21 at 23:01; Status DC Sodium Chloride 1,000 ml @ 1,000 mls/hr 1X ONCE IV Last administered on 04/07/21at 23:28; Start 04/07/21 at 23:45; Stop 04/08/21 at 00:44; Status DC Ceftriaxone Sodium (Rocephin) 1 gm 1X ONCE IVP Last administered on 04/07/21at 23:35; Start 04/07/21 at 23:45; Stop 04/07/21 at 23:46; Status DC Ondansetron HCl (Zofran) 4 mg PRN Q8HRS PRN IVP NAUSEA/VOMITING 1ST CHOICE Last administered on 04/08/21at 00:40; Start 04/08/21 at 00:15; Stop 04/09/21 at 00:14 Acetaminophen (Tylenol) 650 mg PRN Q4HRS PRN PO FEVER > 100.3'F; Start 04/08/21 at 00:15; Stop 04/09/21 at 00:14 Nitroglycerin (Nitrostat) 0.4 mg PRN Q5MIN PRN SL CHEST PAIN; Start 04/08/21 at 00:15; Stop 04/09/21 at 00:14 Multivitamins (Thera M Plus) 1 tab DAILY PO Last administered on 04/08/21at 09:11; Start 04/08/21 at 09:00 Folic Acid (Folic Acid) 1 mg DAILY PO Last administered on 04/08/21at 09:11; Start 04/08/21 at 09:00 Thiamine Mononitrate (Vitamin B-1) 100 mg DAILY PO Last administered on 04/08/21at 09:11; Start 04/08/21 at 09:00 Lorazepam (Ativan) 2 mg Q6H PO Last administered on 04/08/21at 00:37; Start 04/08/21 at 00:30; Stop 04/09/21 at 06:31 Magnesium Sulfate 50 ml @ 25 mls/hr 1X ONCE IV Last administered on 04/08/21at 00:38; Start 04/08/21 at 00:30; Stop 04/08/21 at 02:29; Status DC Lorazepam (Ativan Inj) 2 mg PRN Q1HR PRN IV For CIWA 8-14 Last administered on 04/08/21at 02:25; Start 04/08/21 at 02:15 Lorazepam (Ativan Inj) 4 mg PRN Q1HR PRN IV For CIWA 15 or greater; Start 04/08/21 at 02:15 Haloperidol Lactate (Haldol Inj) 5 mg PRN Q4HRS PRN IVP Hallucinatns,Confusn,Delirium; Start 04/08/21 at 02:15 Diphenhydramine HCl (Benadryl) 25 mg PRN Q15MIN PRN IVP EPS symptoms 2'Haldol admin; Start 04/08/21 at 02:15 Clonidine HCl (Catapres) 0.1 mg PRN Q1HR PRN PO SBP > 180 or DBP > 100, MRX3; Start 04/08/21 at 02:15 Sodium Chloride 1,000 ml @ 1,000 mls/hr 1X ONCE IV Last administered on 04/08/21at 03:37; Start 04/08/21 at 04:00; Stop 04/08/21 at 04:59; Status DC Potassium Chloride/Water 100 ml @ 100 mls/hr Q1H IV Last administered on 04/08/21at 08:20; Start 04/08/21 at 04:00; Stop 04/08/21 at 07:59; Status DC Sodium Chloride 1,000 ml @ 75 mls/hr [id number] IV Last administered on 04/08/21at 04:50; Start 04/08/21 at 05:00; Stop 04/08/21 at 09:46; Status DC Magnesium Sulfate 50 ml @ 25 mls/hr 1X ONCE IV Last administered on 04/08/21at 10:13; Start 04/08/21 at 10:00; Stop 04/08/21 at 11:59 Potassium Chloride/Dextrose/ Sod Cl 1,000 ml @ 125 mls/hr Q8H IV Last administered on 04/08/21at 10:12; Start 04/08/21 at 10:00 Thiamine HCl (Thiamine Im) 100 mg 1X ONCE IM ; Start 04/09/21 at 10:00; Stop 04/09/21 at 10:01 Active Scripts Active Klor-Con M10 (Potassium Chloride) 10 Meq Tab.er.prt 4 Tab PO DAILY 7 Days Thera-M Tablet (Multivits,Ca,Minerals/Iron/Fa) 1 Each Tablet 1 Tab PO DAILY 30 Days Reported [naproxen] 500 Mg PO BID Proair Hfa Inhaler (Albuterol Sulfate) 8.5 Gm Hfa.aer.ad 2 Puff INH PRN Q4HRS PRN Omeprazole 40 Mg Capsule.dr 1 Cap PO DAILY Atorvastatin Calcium 10 Mg Tablet 1 Tab PO DAILY Metoprolol Tartrate 100 Mg Tablet 1 Tab PO BID Amlodipine Besylate 5 Mg Tablet 5 Mg PO DAILY Lisinopril 40 Mg Tablet 1 Tab PO DAILY Allergies Allergies: Coded Allergies: No Known Drug Allergies (Unverified , 04/03/15) ROS Review of System As per HPI, rest of the ros is negative Physical Exam Physical Exam GENERAL: propped up in bed, resting comfortably , NAD HEENT: atraumatic. OM moist, anicteric NECK: Supple. CARDIOVASCULAR: S1, S2, No murmur, No rub LUNGS: CTA, Non labored ABDOMEN: Soft. No mass palpable.NT . BS + : No Bethea, No CVA or SP tenderness EXTR: No calf tenderness, no edema. NEURO: Moving all extremities. DERM No Rash Vital Signs Vital Signs Date Time Temp Pulse Resp B/P (MAP) Pulse Ox O2 Delivery O2 Flow Rate FiO2 04/08/21 08:29 Nasal Cannula 2.0 04/08/21 07:00 97 16 93/60 (71) 100 04/08/21 03:05 97.7 97.7 Assessment & Plan HERMELINDO - ATN 2/2 Hypotensive/ dehydration ., baseline Creat normal 0.7 recently , UA no e/o UTI, Blood , hyaline and granular casts + . Check CK and Renal panel today .If no improvement recommned getting Renal US per Dr. Redding's note No PVR on bladder scan (patient was c/o urinary retention at home) Supportive care, Hydration with IVF , strict I/O, avoid nephrotoxins HypoKalemia- replacing HypoMg Replacing Alcoholism- per primary Increased anion gap metabolic acidosis secondary to lactic acidosis as well as acute kidney failure. Hypertension on Amlodipine,BB and JALEN-I at home. Currently Hypotensive. Hold BP meds Chronic pancreatitis. Labs Labs Laboratory Tests Test 04/07/21 21:33 04/07/21 22:00 04/07/21 22:20 04/07/21 23:55 Glucose (Fingerstick) 119 mg/dL (70-99) SARS-CoV-2 Antigen (Rapid) Negative (NEGATIVE) White Blood Count 11.7 x10^3/uL (4.0-11.0) Red Blood Count 4.56 x10^6/uL (4.30-5.70) Hemoglobin 13.9 g/dL (13.0-17.5) Hematocrit 40.2 % (39.0-53.0) Mean Corpuscular Volume 88 fL (79-100) Mean Corpuscular Hemoglobin 30 pg (25-35) Mean Corpuscular Hemoglobin Concent 35 g/dL (31-37) Red Cell Distribution Width 15.6 % (11.5-14.5) Platelet Count 120 x10^3/uL (140-400) Neutrophils (%) (Auto) 84 % (31-73) Lymphocytes (%) (Auto) 8 % (24-48) Monocytes (%) (Auto) 8 % (0-9) Eosinophils (%) (Auto) 0 % (0-3) Basophils (%) (Auto) 0 % (0-3) Neutrophils # (Auto) 9.9 x10^3/uL (1.8-7.7) Lymphocytes # (Auto) 0.9 x10^3/uL (1.0-4.8) Monocytes # (Auto) 0.9 x10^3/uL (0.0-1.1) Eosinophils # (Auto) 0.0 x10^3/uL (0.0-0.7) Basophils # (Auto) 0.0 x10^3/uL (0.0-0.2) Sodium Level 133 mmol/L (136-145) Potassium Level 3.5 mmol/L (3.5-5.1) Chloride Level 89 mmol/L (98-107) Carbon Dioxide Level 17 mmol/L (21-32) Anion Gap 27 (6-14) Blood Urea Nitrogen 36 mg/dL (8-26) Creatinine 5.3 mg/dL (0.7-1.3) Estimated GFR (Cockcroft-Gault) 13.3 BUN/Creatinine Ratio 7 (6-20) Glucose Level 126 mg/dL (70-99) Lactic Acid Level 6.5 mmol/L (0.4-2.0) Calcium Level 8.8 mg/dL (8.5-10.1) Magnesium Level 1.4 mg/dL (1.8-2.4) Total Bilirubin 2.1 mg/dL (0.2-1.0) Aspartate Amino Transf (AST/SGOT) 509 U/L (15-37) Alanine Aminotransferase (ALT/SGPT) 154 U/L (16-63) Alkaline Phosphatase 62 U/L (46-116) Troponin I Quantitative 0.044 ng/mL (0.000-0.055) Total Protein 8.8 g/dL (6.4-8.2) Albumin 5.0 g/dL (3.4-5.0) Albumin/Globulin Ratio 1.3 (1.0-1.7) Salicylates Level < 2.8 mg/dL (2.8-20.0) Salicylate Last Dose Date Unk Salicylate Last Dose Time Unk Acetaminophen Level < 2 mcg/ml (10-30) Acetaminophen Last Dose Date Unk Acetaminophen Last Dose Time Unk Ethyl Alcohol Level < 10 mg/dL (0-10) Ammonia 30 mcmol/L (11-34) Test 04/08/21 00:01 04/08/21 00:20 04/08/21 01:32 Bedside Hematocrit 40 % (37-52) Arterial Blood pH (Temp corrected) 7.26 Arterial Blood pCO2 (Temp correct) 35 mmHg Arterial Blood pO2 (Temp corrected) 45 mmHg Bedside Venous pH 7.26 (7.32-7.42) Bedside Venous pCO2 35 mmHg (41-51) Bedside Venous pO2 45 mmHg (20-40) Bedside Venous HCO3 16 mmol/L (24-28) Bedside Venous Blood Total CO2 17 mmol/L (21-32) Bedside Venous Blood O2 Saturation 74 % Bedside Venous Blood Base Excess -12 mmol/L (0-3) POC Venous Hemoglobin (Calc) 13.6 g/dL (14-18) Bedside FiO2 21 Bedside Sodium 134 mmol/L (135-145) Bedside Potassium 3.3 mmol/L (3.5-5.0) Glucose Level 114 mg/dL (70-99) Bedside Ionized Calcium (Jean) 1.07 mmol/L (1.13-1.32) Urine Collection Type Unknown Urine Color Tova Urine Clarity Turbid Urine pH 5.5 (<5.0-8.0) Urine Specific [place] 1.025 (1.000-1.030) Urine Protein >=300 mg/dL (NEG-TRACE) Urine Glucose (UA) Negative mg/dL (NEG) Urine Ketones (Stick) 15 mg/dL (NEG) Urine Blood Large (NEG) Urine Nitrite Negative (NEG) Urine Bilirubin Moderate (NEG) Urine Urobilinogen Dipstick 1.0 mg/dL (0.2 mg/dL) Urine Leukocyte Esterase Negative (NEG) Urine RBC 3-5 /HPF (0-2) Urine WBC 1-4 /HPF (0-4) Urine Squamous Epithelial Cells Mod /LPF Urine Amorphous Sediment Present /HPF Urine Bacteria Few /HPF (0-FEW) Urine Hyaline Casts Many /HPF Urine Granular Casts Occasional /HPF Urine Mucus Marked /LPF Urine Opiates Screen Neg (NEG) Urine Methadone Screen Neg (NEG) Urine Barbiturates Neg (NEG) Urine Phencyclidine Screen Neg (NEG) Urine Amphetamine/Methamphetamine Neg (NEG) Urine Benzodiazepines Screen Neg (NEG) Urine Cocaine Screen Neg (NEG) Urine Cannabinoids Screen Pos (NEG) Urine Ethyl Alcohol Neg (NEG) Lactic Acid Level 2.8 mmol/L (0.4-2.0) Laboratory Tests Test 04/07/21 21:33 04/07/21 22:00 04/07/21 22:20 04/07/21 23:55 Glucose (Fingerstick) 119 mg/dL (70-99) SARS-CoV-2 Antigen (Rapid) Negative (NEGATIVE) White Blood Count 11.7 x10^3/uL (4.0-11.0) Red Blood Count 4.56 x10^6/uL (4.30-5.70) Hemoglobin 13.9 g/dL (13.0-17.5) Hematocrit 40.2 % (39.0-53.0) Mean Corpuscular Volume 88 fL (79-100) Mean Corpuscular Hemoglobin 30 pg (25-35) Mean Corpuscular Hemoglobin Concent 35 g/dL (31-37) Red Cell Distribution Width 15.6 % (11.5-14.5) Platelet Count 120 x10^3/uL (140-400) Neutrophils (%) (Auto) 84 % (31-73) Lymphocytes (%) (Auto) 8 % (24-48) Monocytes (%) (Auto) 8 % (0-9) Eosinophils (%) (Auto) 0 % (0-3) Basophils (%) (Auto) 0 % (0-3) Neutrophils # (Auto) 9.9 x10^3/uL (1.8-7.7) Lymphocytes # (Auto) 0.9 x10^3/uL (1.0-4.8) Monocytes # (Auto) 0.9 x10^3/uL (0.0-1.1) Eosinophils # (Auto) 0.0 x10^3/uL (0.0-0.7) Basophils # (Auto) 0.0 x10^3/uL (0.0-0.2) Sodium Level 133 mmol/L (136-145) Potassium Level 3.5 mmol/L (3.5-5.1) Chloride Level 89 mmol/L (98-107) Carbon Dioxide Level 17 mmol/L (21-32) Anion Gap 27 (6-14) Blood Urea Nitrogen 36 mg/dL (8-26) Creatinine 5.3 mg/dL (0.7-1.3) Estimated GFR (Cockcroft-Gault) 13.3 BUN/Creatinine Ratio 7 (6-20) Glucose Level 126 mg/dL (70-99) Lactic Acid Level 6.5 mmol/L (0.4-2.0) Calcium Level 8.8 mg/dL (8.5-10.1) Magnesium Level 1.4 mg/dL (1.8-2.4) Total Bilirubin 2.1 mg/dL (0.2-1.0) Aspartate Amino Transf (AST/SGOT) 509 U/L (15-37) Alanine Aminotransferase (ALT/SGPT) 154 U/L (16-63) Alkaline Phosphatase 62 U/L (46-116) Troponin I Quantitative 0.044 ng/mL (0.000-0.055) Total Protein 8.8 g/dL (6.4-8.2) Albumin 5.0 g/dL (3.4-5.0) Albumin/Globulin Ratio 1.3 (1.0-1.7) Salicylates Level < 2.8 mg/dL (2.8-20.0) Salicylate Last Dose Date Unk Salicylate Last Dose Time Unk Acetaminophen Level < 2 mcg/ml (10-30) Acetaminophen Last Dose Date Unk Acetaminophen Last Dose Time Unk Ethyl Alcohol Level < 10 mg/dL (0-10) Ammonia 30 mcmol/L (11-34) Test 04/08/21 00:01 04/08/21 00:20 04/08/21 01:32 Bedside Hematocrit 40 % (37-52) Arterial Blood pH (Temp corrected) 7.26 Arterial Blood pCO2 (Temp correct) 35 mmHg Arterial Blood pO2 (Temp corrected) 45 mmHg Bedside Venous pH 7.26 (7.32-7.42) Bedside Venous pCO2 35 mmHg (41-51) Bedside Venous pO2 45 mmHg (20-40) Bedside Venous HCO3 16 mmol/L (24-28) Bedside Venous Blood Total CO2 17 mmol/L (21-32) Bedside Venous Blood O2 Saturation 74 % Bedside Venous Blood Base Excess -12 mmol/L (0-3) POC Venous Hemoglobin (Calc) 13.6 g/dL (14-18) Bedside FiO2 21 Bedside Sodium 134 mmol/L (135-145) Bedside Potassium 3.3 mmol/L (3.5-5.0) Glucose Level 114 mg/dL (70-99) Bedside Ionized Calcium (Jean) 1.07 mmol/L (1.13-1.32) Urine Collection Type Unknown Urine Color Tova Urine Clarity Turbid Urine pH 5.5 (<5.0-8.0) Urine Specific [place] 1.025 (1.000-1.030) Urine Protein >=300 mg/dL (NEG-TRACE) Urine Glucose (UA) Negative mg/dL (NEG) Urine Ketones (Stick) 15 mg/dL (NEG) Urine Blood Large (NEG) Urine Nitrite Negative (NEG) Urine Bilirubin Moderate (NEG) Urine Urobilinogen Dipstick 1.0 mg/dL (0.2 mg/dL) Urine Leukocyte Esterase Negative (NEG) Urine RBC 3-5 /HPF (0-2) Urine WBC 1-4 /HPF (0-4) Urine Squamous Epithelial Cells Mod /LPF Urine Amorphous Sediment Present /HPF Urine Bacteria Few /HPF (0-FEW) Urine Hyaline Casts Many /HPF Urine Granular Casts Occasional /HPF Urine Mucus Marked /LPF Urine Opiates Screen Neg (NEG) Urine Methadone Screen Neg (NEG) Urine Barbiturates Neg (NEG) Urine Phencyclidine Screen Neg (NEG) Urine Amphetamine/Methamphetamine Neg (NEG) Urine Benzodiazepines Screen Neg (NEG) Urine Cocaine Screen Neg (NEG) Urine Cannabinoids Screen Pos (NEG) Urine Ethyl Alcohol Neg (NEG) Lactic Acid Level 2.8 mmol/L (0.4-2.0) Review All relevant outside records, renal labs, imaging studies, telemetry/EKG's were reviewed. Images Images CHEST AP ONLY INDICATION: Reason: WITNESSED FALL, ALTERED MENTATION / Spl. Instructions: / History: COMPARISON: November 17, 2020 FINDINGS: Single view of chest obtained. Mild hypoexpansion. Cardiac silhouette is unremarkable. There is some air-filled prominent loops of bowel in the upper abdomen partially seen. No focal airspace consolidation. IMPRESSION: * No focal airspace consolidation or edema. * Air-filled distention of partially visualized bowel loops at the upper abdomen TORI CHOI MD Apr 08, 2021 11:57
[2021-04-08 12:37] LABS: ALBUMIN 4.5 g/dL (3.4-5.0); CREATININE 4.2 mg/dL (0.7-1.3); GFR 17.4; PHOSPHORUS 4.3 mg/dL (2.6-4.7); POTASSIUM 3.3 mmol/L (3.5-5.1)
[2021-04-08] MEDS: HEPARIN for SUB-Q USE 5,000 UNIT/ML VIAL. SQ SCH (20:59)
[2021-04-09 03:00] VITALS: BP 121/80
[2021-04-09 04:58] LABS: BASO % 0 % (0-3); EOS % 0 % (0-3); HEMATOCRIT 29.3 % (39.0-53.0); HEMOGLOBIN 10.1 g/dL (13.0-17.5); LYMPH # 0.9 x10^3/uL (1.0-4.8); LYMPH % 16 % (24-48); MEAN CORPUSCULAR HEMOGLOBIN 30 pg (25-35); MEAN CORPUSCULAR HGB CONC 35 g/dL (31-37); MEAN CORPUSCULAR VOLUME 88 fL (79-100); MONO # 0.4 x10^3/uL (0.0-1.1); MONO % 8 % (0-9); NEUT # 4.1 x10^3/uL (1.8-7.7); NEUT % 75 % (31-73); PLATELET COUNT 75 x10^3/uL (140-400); RED BLOOD COUNT 3.34 x10^6/uL (4.30-5.70); RED CELL DISTRIBUTION WIDTH 15.4 % (11.5-14.5); WHITE BLOOD COUNT 5.5 x10^3/uL (4.0-11.0)
[2021-04-09] MEDS: POTASSIUM CL 20MEQ D5-0.9%NACL 1,000 ML IV SCH ×2 (05:11→11:32)
[2021-04-09 05:38] LABS: ALBUMIN 3.3 g/dL (3.4-5.0); ALBUMIN/GLOBULIN RATIO 1.1 (1.0-1.7); CALCIUM 7.4 mg/dL (8.5-10.1); MAGNESIUM 2.4 mg/dL (1.8-2.4); TOTAL BILIRUBIN 1.2 mg/dL (0.2-1.0); TOTAL PROTEIN 6.3 g/dL (6.4-8.2)
[2021-04-09] MEDS: HEPARIN for SUB-Q USE 5,000 UNIT/ML VIAL. SQ SCH ×2 (06:32→15:28)
[2021-04-09 07:00] VITALS: BP 95/63
[2021-04-09] MEDS ORDERED: POTASSIUM CHLORIDE 20 MEQ TABLET.ER. PO ONE ×3 (07:00→11:00)
[2021-04-09] MEDS: FOLIC ACID 1 MG TABLET. PO SCH (08:19)
[2021-04-09] MEDS: THIAMINE 100 MG TABLET. PO SCH (08:19)
[2021-04-09] MEDS: MULTIVITAMIN with MINERAL TABLET. PO SCH (08:19)
--- NOTE | 2021-04-09 09:59 | PDOC ---
DATE OF SERVICE DATE: 04/09/21 TIME: 09:59 SUBJECTIVE ROS Feeling better Resting comfortably OBJECTIVE Vital Signs Vital Signs Date Time Temp Pulse Resp B/P (MAP) Pulse Ox O2 Delivery O2 Flow Rate FiO2 04/09/21 07:00 98.3 92 18 95/63 (74) 97 Room Air 98.3 04/08/21 08:29 2.0 I & 0 Intake and Output 04/09/21 07:00 Intake Total 3090 ml Output Total 1000 ml Balance 2090 ml Intake Oral 490 ml IV Total 2600 ml Output Urine Total 1000 ml # Voids 2 # Bowel Movements 1 PHYSICAL EXAM Physical Exam GENERAL: propped up in bed, resting comfortably , NAD HEENT: atraumatic. OM moist, anicteric NECK: Supple. CARDIOVASCULAR: S1, S2, No murmur, No rub LUNGS: CTA, Non labored ABDOMEN: Soft. No mass palpable.NT . BS + : No Bethea, No CVA or SP tenderness EXTR: No calf tenderness, no edema. NEURO: Moving all extremities. DERM No Rash DIAGNOSIS/ASSESSMENT Assessment & Plan HERMELINDO - ATN 2/2 Hypotensive/ dehydration ., baseline Creat normal 0.7 recently , UA no e/o UTI, no RBC's ; Blood , hyaline and granular casts +; CK ordered, Mild Rhabdo , Improving renal function No PVR on bladder scan Supportive care, strict I/O, avoid nephrotoxins Rhabdomyolysis- Mild , pending today HypoKalemia- replacing HypoMg Replace as indicated Alcoholism- per primary Increased anion gap metabolic acidosis secondary to lactic acidosis as well as acute kidney failure. Hypertension on Amlodipine,BB and JALEN-I at home. Currently Hypotensive. Hold BP meds Chronic pancreatitis. COMMENT/RELEVANT DATA Meds Current Medications Medications (Trade) Dose Ordered Sig/Rosa Maria Start Time Stop Time Status Last Admin Dose Admin Acetaminophen (Tylenol) 650 mg PRN Q4HRS PRN 04/08/21 00:15 04/09/21 00:14 DC Ceftriaxone Sodium (Rocephin) 1 gm 1X ONCE 04/07/21 23:45 04/07/21 23:46 DC 04/07/21 23:35 1 GM Clonidine HCl (Catapres) 0.1 mg PRN Q1HR PRN 04/08/21 02:15 Diphenhydramine HCl (Benadryl) 25 mg PRN Q15MIN PRN 10/7/21 02:15 Folic Acid (Folic Acid) 1 mg DAILY 04/08/21 09:00 04/09/21 08:19 1 MG Haloperidol Lactate (Haldol Inj) 5 mg PRN Q4HRS PRN 04/08/21 02:15 Heparin Sodium (Porcine) (Heparin Sodium) 5,000 unit Q8HRS 04/08/21 19:30 04/09/21 06:32 5,000 UNIT Lorazepam (Ativan Inj) 4 mg PRN Q1HR PRN 04/08/21 02:15 Lorazepam (Ativan) 2 mg Q6H 04/08/21 00:30 04/09/21 06:31 DC 04/09/21 06:27 2 MG Magnesium Sulfate 50 ml @ 25 mls/hr 1X ONCE 04/08/21 10:00 04/08/21 11:59 DC 04/08/21 10:13 25 MLS/HR Multivitamins (Thera M Plus) 1 tab DAILY 04/08/21 09:00 04/09/21 08:19 1 TAB Nitroglycerin (Nitrostat) 0.4 mg PRN Q5MIN PRN 04/08/21 00:15 04/09/21 00:14 DC Ondansetron HCl (Zofran) 4 mg PRN Q8HRS PRN 04/08/21 00:15 04/09/21 00:14 DC 04/08/21 00:40 4 MG Potassium Chloride/Dextrose/ Sod Cl 1,000 ml @ 125 mls/hr Q8H 04/08/21 10:00 04/09/21 05:11 125 MLS/HR Potassium Chloride/Water 100 ml @ 100 mls/hr Q1H 04/08/21 04:00 04/08/21 07:59 DC 04/08/21 08:20 100 MLS/HR Potassium Chloride (Klor-Con) 40 meq 1X ONCE 04/09/21 11:00 04/09/21 11:01 Sodium Chloride 1,000 ml @ 75 mls/hr [id number] 04/08/21 05:00 04/08/21 09:46 DC 04/08/21 04:50 75 MLS/HR Thiamine Mononitrate (Vitamin B-1) 100 mg DAILY 10/7/21 09:00 04/09/21 08:19 100 MG Thiamine HCl (Thiamine Im) 100 mg 1X ONCE 04/09/21 10:00 04/09/21 10:01 Thiamine HCl 100 mg/Dextrose 51 ml @ 102 mls/hr 1X ONCE 04/07/21 23:00 04/07/21 23:29 DC 04/07/21 23:36 102 MLS/HR Lab Laboratory Tests Test 04/09/21 04:30 White Blood Count 5.5 x10^3/uL (4.0-11.0) Red Blood Count 3.34 x10^6/uL (4.30-5.70) Hemoglobin 10.1 g/dL (13.0-17.5) Hematocrit 29.3 % (39.0-53.0) Mean Corpuscular Volume 88 fL (79-100) Mean Corpuscular Hemoglobin 30 pg (25-35) Mean Corpuscular Hemoglobin Concent 35 g/dL (31-37) Red Cell Distribution Width 15.4 % (11.5-14.5) Platelet Count 75 x10^3/uL (140-400) Neutrophils (%) (Auto) 75 % (31-73) Lymphocytes (%) (Auto) 16 % (24-48) Monocytes (%) (Auto) 8 % (0-9) Eosinophils (%) (Auto) 0 % (0-3) Basophils (%) (Auto) 0 % (0-3) Neutrophils # (Auto) 4.1 x10^3/uL (1.8-7.7) Lymphocytes # (Auto) 0.9 x10^3/uL (1.0-4.8) Monocytes # (Auto) 0.4 x10^3/uL (0.0-1.1) Eosinophils # (Auto) 0.0 x10^3/uL (0.0-0.7) Basophils # (Auto) 0.0 x10^3/uL (0.0-0.2) Sodium Level 134 mmol/L (136-145) Potassium Level 3.0 mmol/L (3.5-5.1) Chloride Level 102 mmol/L (98-107) Carbon Dioxide Level 23 mmol/L (21-32) Anion Gap 9 (6-14) Blood Urea Nitrogen 25 mg/dL (8-26) Creatinine 1.0 mg/dL (0.7-1.3) Estimated GFR (Cockcroft-Gault) 91.0 BUN/Creatinine Ratio 25 (6-20) Glucose Level 140 mg/dL (70-99) Lactic Acid Level 1.1 mmol/L (0.4-2.0) Calcium Level 7.4 mg/dL (8.5-10.1) Magnesium Level 2.4 mg/dL (1.8-2.4) Total Bilirubin 1.2 mg/dL (0.2-1.0) Aspartate Amino Transf (AST/SGOT) 357 U/L (15-37) Alanine Aminotransferase (ALT/SGPT) 135 U/L (16-63) Alkaline Phosphatase 47 U/L (46-116) Total Protein 6.3 g/dL (6.4-8.2) Albumin 3.3 g/dL (3.4-5.0) Albumin/Globulin Ratio 1.1 (1.0-1.7) Results All relevant outside records, renal labs, imaging studies, telemetry/EKG's were reviewed. Justicifation of Admission Dx: Justifications for Admission: Justification of Admission Dx: Yes TORI CHOI MD Apr 09, 2021 09:59
[2021-04-09] MEDS ORDERED: THIAMINE IM 200 MG/2 ML VIAL. IM ONE (10:00)
--- NOTE | 2021-04-09 10:07 | PDOC ---
PROGRESS NOTES Date of Service: DATE: 04/09/21 TIME: 10:03 Subjective Subjective feeling better today Objective Objective Vital Signs Date Time Temp Pulse Resp B/P (MAP) Pulse Ox O2 Delivery O2 Flow Rate FiO2 04/09/21 07:00 98.3 92 18 95/63 (74) 97 Room Air 98.3 04/08/21 08:29 2.0 Intake and Output 04/09/21 07:00 Intake Total 3090 ml Output Total 1000 ml Balance 2090 ml Intake Oral 490 ml IV Total 2600 ml Output Urine Total 1000 ml # Voids 2 # Bowel Movements 1 Physical Exam Abdomen: Soft Heart: Regular rate, Normal S1 Extremities: No clubbing General: Alert HEENT: Atraumatic MUSCULOSKELETAL: No joint tenderness, No muscular tenderness noted, Full range of motion without pain Neuro: Normal speech Psych/Mental Status: Mental status NL Skin: No breakdown Diagnosis Problem List Problems Medical Problems: (1) HERMELINDO (acute kidney injury) Status: Acute (2) EtOH dependence Status: Acute (3) History of recent fall Status: Acute (4) Hypomagnesemia Status: Acute (5) Metabolic encephalopathy Status: Acute Assessment Assessment Problems Medical Problems: (1) HERMELINDO (acute kidney injury) Status: Acute (2) EtOH dependence Status: Acute (3) History of recent fall Status: Acute (4) Hypomagnesemia Status: Acute (5) Metabolic encephalopathy Status: Acute FINAL IMPRESSION: 1. Acute alcoholism. 2. Acute kidney failure secondary to dehydration. 3. Increased anion gap metabolic acidosis secondary to lactic acidosis as well as acute kidney failure. 4. Hypertension. 5. Chronic pancreatitis. 6. Chronic alcoholism. PLAN: kidney function normal pot 3.0 replace mag good LFT 300 range. platelets 75,000 low recommend inpatient alcohol rehab program ,spoke with kiersten turner. d/c tomorrow if not going for inpatient treatment refer to out pt programm. At this time, was admitted to the hospital, was given banana bag with thiamine, multivitamin and also magnesium, hydrate with IV fluids. Had a bladder scan negative for hydronephrosis or bladder retention. CT head was negative. We will give thiamine and also Ativan, watch for DTs, also monitor kidney function and hydration with IV fluids with potassium and replace magnesium. We will get social and human services assistant consult for inpatient alcohol rehab program. Plan Plan of Care Problems Medical Problems: (1) HERMELINDO (acute kidney injury) Status: Acute (2) EtOH dependence Status: Acute (3) History of recent fall Status: Acute (4) Hypomagnesemia Status: Acute (5) Metabolic encephalopathy Status: Acute Comment Review of Relevant I have reviewed the following items rhonda (where applicable) has been applied. Labs Laboratory Tests Test 04/09/21 04:30 White Blood Count 5.5 x10^3/uL (4.0-11.0) Red Blood Count 3.34 x10^6/uL (4.30-5.70) Hemoglobin 10.1 g/dL (13.0-17.5) Hematocrit 29.3 % (39.0-53.0) Mean Corpuscular Volume 88 fL (79-100) Mean Corpuscular Hemoglobin 30 pg (25-35) Mean Corpuscular Hemoglobin Concent 35 g/dL (31-37) Red Cell Distribution Width 15.4 % (11.5-14.5) Platelet Count 75 x10^3/uL (140-400) Neutrophils (%) (Auto) 75 % (31-73) Lymphocytes (%) (Auto) 16 % (24-48) Monocytes (%) (Auto) 8 % (0-9) Eosinophils (%) (Auto) 0 % (0-3) Basophils (%) (Auto) 0 % (0-3) Neutrophils # (Auto) 4.1 x10^3/uL (1.8-7.7) Lymphocytes # (Auto) 0.9 x10^3/uL (1.0-4.8) Monocytes # (Auto) 0.4 x10^3/uL (0.0-1.1) Eosinophils # (Auto) 0.0 x10^3/uL (0.0-0.7) Basophils # (Auto) 0.0 x10^3/uL (0.0-0.2) Sodium Level 134 mmol/L (136-145) Potassium Level 3.0 mmol/L (3.5-5.1) Chloride Level 102 mmol/L (98-107) Carbon Dioxide Level 23 mmol/L (21-32) Anion Gap 9 (6-14) Blood Urea Nitrogen 25 mg/dL (8-26) Creatinine 1.0 mg/dL (0.7-1.3) Estimated GFR (Cockcroft-Gault) 91.0 BUN/Creatinine Ratio 25 (6-20) Glucose Level 140 mg/dL (70-99) Lactic Acid Level 1.1 mmol/L (0.4-2.0) Calcium Level 7.4 mg/dL (8.5-10.1) Magnesium Level 2.4 mg/dL (1.8-2.4) Total Bilirubin 1.2 mg/dL (0.2-1.0) Aspartate Amino Transf (AST/SGOT) 357 U/L (15-37) Alanine Aminotransferase (ALT/SGPT) 135 U/L (16-63) Alkaline Phosphatase 47 U/L (46-116) Total Protein 6.3 g/dL (6.4-8.2) Albumin 3.3 g/dL (3.4-5.0) Albumin/Globulin Ratio 1.1 (1.0-1.7) Microbiology 04/07/21 Blood Culture - Preliminary, Resulted NO GROWTH AFTER 1 DAY Medications Current Medications Heparin Sodium (Porcine) (Heparin Sodium) 5,000 unit Q8HRS SQ Last administered on 04/09/21at 06:32; Start 04/08/21 at 19:30 Potassium Chloride (Klor-Con) 40 meq 1X ONCE PO Last administered on 04/09/21at 07:23; Start 04/09/21 at 07:00; Stop 04/09/21 at 07:01; Status DC Potassium Chloride (Klor-Con) 40 meq 1X ONCE PO Last administered on 04/09/21at 08:20; Start 04/09/21 at 09:00; Stop 04/09/21 at 09:01; Status DC Potassium Chloride (Klor-Con) 40 meq 1X ONCE PO ; Start 04/09/21 at 11:00; Stop 04/09/21 at 11:01 Thiamine HCl (Thiamine Im) 100 mg 1X ONCE IM ; Start 04/09/21 at 10:00; Stop 04/09/21 at 10:01; Status DC Vitals/I & O Vital Sign - Last 24 Hours 04/08/21 04/08/21 04/08/21 04/08/21 11:00 15:00 19:00 20:00 Temp 98.7 98.7 99.2 98.7 98.7 99.2 Pulse 113 111 117 Resp 16 16 20 B/P (MAP) 101/54 (70) 104/68 (80) 118/66 (83) Pulse Ox 100 98 99 O2 Delivery Room Air Room Air Room Air Room Air 04/08/21 04/09/21 04/09/21 23:00 03:00 07:00 Temp 98.8 98.7 98.3 98.8 98.7 98.3 Pulse 101 93 92 Resp 20 20 18 B/P (MAP) 120/70 (87) 121/80 (94) 95/63 (74) Pulse Ox 94 96 97 O2 Delivery Room Air Room Air Room Air Intake and Output 04/08/21 04/08/21 04/09/21 15:00 23:00 07:00 Intake Total 720 ml 1250 ml 1120 ml Output Total 600 ml 400 ml Balance 720 ml 650 ml 720 ml Justifications for Admission Other Justification ABIGAIL TINAJERO MD Apr 09, 2021 10:07
[2021-04-09 11:00] VITALS: BP 104/70
--- NOTE | 2021-04-09 12:52 | NUR ---
SW following. Discussed with RN, pt from home, room air, regular diet, COVID-19 negative. Pt originally declined services from PAT team however, per Dr. Redding is now agreeable. PAT team returning. Discharge today or tomorrow. DAMIEN will continue to follow. Addendum: 04/09/21 at 1518 by IVON QUEZADA PAT met with pt, pt still undecided - provided with resources to follow up with if he makes a decision. Dr. Redding notified.
[2021-04-09 15:00] VITALS: BP 126/83
[2021-04-09] MEDS ORDERED: THIA100T22 PO (16:06)
--- NOTE | 2021-04-09 19:36 | NUR ---
Discharge Note: [facility] Discharge instructions and discharge home medications reviewed with the patient and a copy given. All questions have been answered and understanding verbalized. The following instructions and handouts were given: Home meds as directed Discussed resources regarding alcohol abuse/ withdrawal. [place] with PCP in a week. fall precautions Discontinued lines and drains peripheral IV intact, patient tolerated removal. no complications noted. Patient discharged to home via wheelchair accompanied by the patient's sister at 1915.
== END 2021-04-09 19:15 | disposition home or self-care (01) | DRG 682 ==
LOC: ER 21:26 → 5 SOUTH 22:59
PROVIDERS: ADMIT Internal Medicine; ATTEND Internal Medicine
DX: N17.0 Acute kidney failure with tubular necrosis (principal); G93.41 Metabolic encephalopathy; E87.2 Acidosis; K86.1 Other chronic pancreatitis; M62.82 Rhabdomyolysis; E83.42 Hypomagnesemia; E86.0 Dehydration; F10.20 Alcohol dependence, uncomplicated; F12.90 Cannabis use, unspecified, uncomplicated; I10 Essential (primary) hypertension; M48.00 Spinal stenosis, site unspecified; W18.30XA Fall on same level, unspecified, initial encounter; Y92.481 Parking lot as the place of occurrence of the external cause; Z79.899 Other long term (current) drug therapy; Z82.49 Family history of ischemic heart disease and other diseases of the circulatory system; Z87.891 Personal history of nicotine dependence; M19.90 Unspecified osteoarthritis, unspecified site; E87.6 Hypokalemia; I95.9 Hypotension, unspecified; Z20.822 Contact with and (suspected) exposure to COVID-19
CPT/HCPCS: 36415; 70450; 71045; 72125; 80053; 80069; 80307; 80329; 81001; 82140; 82550; 82803; 82962; 83605; 83735; 84132; 84484; 85025; 87040; 87426; 93005; 96361; 96365; 96375; 99406; G0480; J0696; J1644; J2060; J2405; J3411; J3475; J3480; J7030; J7060; U0003; U0005; 99285-25; G0378

== ENCOUNTER 2021-10-18 22:02 | Emergency (ER) | payer OTHER ==
[~2021-10-18] VITALS: Ht 177.8 cm; Wt 85.4 kg
[~2021-10-18 22:02] MED LIST changes: +CYCL10TA19 PO; -CYCL10TA2 PO; -OMEP20TA8 PO; +OMEP20TA91 PO; +THIA100T22 PO; +naproxen PO
[2021-10-18] MEDS ORDERED: THIAMINE INJ 500 MG in IV DEXTROSE 5% 50 ML IV STA (22:35)
[2021-10-18] MEDS ORDERED: PRENATAL MULTIVITAMIN TABLET. PO STA (22:35)
[2021-10-18] MEDS ORDERED: FAMOTIDINE 20 MG/2 ML VIAL IVP ONE (22:45)
[2021-10-18] MEDS: LIDO:MAALOX 1:1 20 ML SINGLE DOSE. SWSW ONE ×2 (22:45→22:54)
[2021-10-18] MEDS ORDERED: IV NORMAL SALINE 1000ML BAG 1,000 ML IV ONE (22:45)
[2021-10-18] MEDS ORDERED: ONDANSETRON PF 4 MG/2 ML VIAL. IVP ONE (22:45)
[2021-10-18 22:48] LABS: BASO % 1 % (0-3); EOS # 0.1 x10^3/uL (0.0-0.7); EOS % 2 % (0-3); HEMATOCRIT 43.1 % (39.0-53.0); HEMOGLOBIN 14.6 g/dL (13.0-17.5); LYMPH % 34 % (24-48); MEAN CORPUSCULAR HEMOGLOBIN 29 pg (25-35); MEAN CORPUSCULAR HGB CONC 34 g/dL (31-37); MEAN CORPUSCULAR VOLUME 85 fL (79-100); MONO # 0.6 x10^3/uL (0.0-1.1); MONO % 10 % (0-9); NEUT # 3.1 x10^3/uL (1.8-7.7); NEUT % 53 % (31-73); PLATELET COUNT 176 x10^3/uL (140-400); RED BLOOD COUNT 5.08 x10^6/uL (4.30-5.70); RED CELL DISTRIBUTION WIDTH 13.5 % (11.5-14.5); WHITE BLOOD COUNT 5.8 x10^3/uL (4.0-11.0)
[2021-10-18 22:59] LABS: CREATININE 0.9 mg/dL (0.7-1.3); GFR 102.8; POTASSIUM 3.1 mmol/L (3.5-5.1)
[2021-10-18 23:05] LABS: ALBUMIN 4.6 g/dL (3.4-5.0); ALBUMIN/GLOBULIN RATIO 1.1 (1.0-1.7); TOTAL BILIRUBIN 2.2 mg/dL (0.2-1.0); TOTAL PROTEIN 8.7 g/dL (6.4-8.2)
--- NOTE | 2021-10-18 23:26 | RAD ---
INDICATION: Reason: headache / Spl. Instructions: / History: COMPARISON: April 07, 2021 TECHNIQUE: Axial CT images obtained through the head without intravenous contrast. One or more of the following individualized dose reduction techniques were utilized for this examinat ion: 1. Automated exposure control; 2. Adjustment of the mA and/or kV according to patient size; 3 . Use of iterative reconstruction technique. FINDINGS: No intracranial hemorrhage. No significant midline shift. Ventricles and sulci are globally prominent. Scattered foci of low attenuation within the white matter. IMPRESSION: * No acute intracranial hemorrhage. * Scattered regions of low attenuation within the white matter. Non-specific in nature but a common finding and frequently secondary to small vessel ischemic disease. * There is some partial opacification of the ethmoid air cells as well as mucosal thickening right m axillary sinus and right frontal sinus. Can be from congestion. Electronically signed by: Delon Nash MD (10/18/2021 11:23 PM) [id number]
--- NOTE | 2021-10-19 00:50 | RAD ---
INDICATION: Reason: abd pain / Spl. Instructions: / History: COMPARISON: April 07, 2021 FINDINGS: Single view of chest obtained. Degenerative changes of the shoulders and spine. Cardiac silhouette unremarkable. No focal airspace consolidation. IMPRESSION: * No focal airspace consolidation or edema. Electronically signed by: Delon Nash MD (10/19/2021 12:48 AM) [id number]
--- NOTE | 2021-10-19 00:56 | PHYS DOC ---
Past Medical History Past Medical History: Alcoholism, Hypertension Past Surgical History: No Surgical History Smoking Status: Never Smoker Alcohol Use: Heavy Drug Use: Marijuana Adult General Chief Complaint Chief Complaint: WITHDRAWL HPI HPI The patient is a 66-year-old male with a history of hypertension, chronic pancreatitis and chronic alcohol abuse. He resides at home in the community. He presents to the emergency department for evaluation of focal, sharp, nonradiating epigastric pain, headache and nausea/vomiting, nonbloody, x3 per patient today, with onset during the course of the day today. Patient states he has not felt well enough to drink his usual liquor. He is concerned that he may be withdrawing to some degree. Associated gradual onset generalized headache which he states is normal for him when he is having some withdrawal symptoms. Patient denies associated fevers, hematemesis, hematochezia or melena, upper respiratory congestion/rhinorrhea, cough, sore throat, shortness of breath or chest pain of any kind, right-sided or lower abdominal pain of any kind, flank pain, midline back pain, dysuria, hematuria, polyuria or oliguria, changes in bowel habits, pain or swelling to arms or legs, recent falls or injuries. No signs of any trauma. Vital signs are appropriate here and patient is only very slightly tremulous. He is in no acute distress, alert and oriented x4. Review of Systems Review of Systems A 12 point review of systems was completed and was negative except where noted in HPI above. Current Medications Current Medications Current Medications Medications (Trade) Dose Ordered Sig/Rosa Maria Start Time Stop Time Status Last Admin Dose Admin Famotidine (Pepcid Vial) 20 mg 1X ONCE 10/18/21 22:45 10/18/21 22:46 DC 10/18/21 22:51 20 MG Lorazepam (Ativan Inj) 2 mg 1X ONCE 10/18/21 22:45 10/18/21 22:46 DC 10/18/21 22:54 2 MG Multi-Ingredient Mouthwash/Gargle (Gi Cocktail) 20 ml 1X ONCE 10/18/21 22:45 10/18/21 22:46 DC Ondansetron HCl (Zofran) 4 mg 1X ONCE 10/18/21 22:45 10/18/21 22:46 DC 10/18/21 22:52 4 MG Multivit/ Folic Acid/Iron (Multivitamin ) 1 tab 1X STAT 4/18/22 22:35 10/18/21 22:42 DC 10/18/21 22:56 1 TAB Sodium Chloride 1,000 ml @ 1,000 mls/hr 1X ONCE 10/18/21 22:45 10/18/21 23:44 DC 10/18/21 22:45 1,000 MLS/HR Thiamine HCl 500 mg/Dextrose 55 ml @ 102 mls/hr 1X STAT 10/18/21 22:35 10/18/21 23:07 DC 10/18/21 22:56 102 MLS/HR Allergies Allergies Allergies Coded Allergies Type Severity Reaction Last Updated Verified No Known Drug Allergies 10/18/21 No Physical Exam Physical Exam 66-year-old male appearing nontoxic and in no acute distress. Head is normocephalic and atraumatic. Neck is supple and nontender. Oropharynx is moist. Lungs are clear to auscultation at all stations. There is a normal S1 and S2 without rubs or gallops and capillary refill is appropriate, less than 2 seconds globally. Abdomen is soft and nondistended with mild focal epigastric tenderness to palpation without rebound or guarding. No right-sided or lower quadrant tenderness to palpation. No pulsatile mass. No obvious organomegaly. Skin is warm and dry without cyanosis, clubbing or edema. Psychiatrically, the patient demonstrates appropriate mood and affect and is alert. Neurologically, cranial nerves II through XII are intact and there are no lateralizing deficits seen. Speech is normal. Language is normal. Coordination is normal. There is no dysmetria with [id number] or [id number] bilaterally. Strength is 5-5 in all joints of bilateral upper and lower extremities. Sensation intact light touch in bilateral upper and lower extremities. Patient ambulates with a narrow, steady, non-ataxic gait here in the emergency department and is alert and oriented x4. Current Patient Data Vital Signs Vital Signs Date Time Temp Pulse Resp B/P (MAP) Pulse Ox O2 Delivery O2 Flow Rate FiO2 10/18/21 22:18 98.0 105 35 152/90 (110) 100 Room Air 98.0 Lab Values Laboratory Tests Test 10/18/21 22:23 White Blood Count 5.8 x10^3/uL (4.0-11.0) Red Blood Count 5.08 x10^6/uL (4.30-5.70) Hemoglobin 14.6 g/dL (13.0-17.5) Hematocrit 43.1 % (39.0-53.0) Mean Corpuscular Volume 85 fL (79-100) Mean Corpuscular Hemoglobin 29 pg (25-35) Mean Corpuscular Hemoglobin Concent 34 g/dL (31-37) Red Cell Distribution Width 13.5 % (11.5-14.5) Platelet Count 176 x10^3/uL (140-400) Neutrophils (%) (Auto) 53 % (31-73) Lymphocytes (%) (Auto) 34 % (24-48) Monocytes (%) (Auto) 10 % (0-9) H Eosinophils (%) (Auto) 2 % (0-3) Basophils (%) (Auto) 1 % (0-3) Neutrophils # (Auto) 3.1 x10^3/uL (1.8-7.7) Lymphocytes # (Auto) 2.0 x10^3/uL (1.0-4.8) Monocytes # (Auto) 0.6 x10^3/uL (0.0-1.1) Eosinophils # (Auto) 0.1 x10^3/uL (0.0-0.7) Basophils # (Auto) 0.0 x10^3/uL (0.0-0.2) Prothrombin Time 13.0 SEC (11.7-14.0) Prothrombin Time INR 1.0 (0.8-1.1) Activated Partial Thromboplast Time 28 SEC (24-38) Sodium Level 131 mmol/L (136-145) L Potassium Level 3.1 mmol/L (3.5-5.1) L Chloride Level 94 mmol/L (98-107) L Carbon Dioxide Level 21 mmol/L (21-32) Anion Gap 16 (6-14) H Blood Urea Nitrogen 6 mg/dL (8-26) L Creatinine 0.9 mg/dL (0.7-1.3) Estimated GFR (Cockcroft-Gault) 102.8 BUN/Creatinine Ratio 7 (6-20) Glucose Level 138 mg/dL (70-99) H Calcium Level 9.0 mg/dL (8.5-10.1) Total Bilirubin 2.2 mg/dL (0.2-1.0) H Aspartate Amino Transferase (AST) 24 U/L (15-37) Alanine Aminotransferase (ALT) 19 U/L (16-63) Alkaline Phosphatase 71 U/L (46-116) Troponin I High Sensitivity 33 ng/L (4-75) Total Protein 8.7 g/dL (6.4-8.2) H Albumin 4.6 g/dL (3.4-5.0) Albumin/Globulin Ratio 1.1 (1.0-1.7) Lipase 112 U/L (73-393) Ethyl Alcohol Level < 10 mg/dL (0-10) Laboratory Tests 10/18/21 22:23 Laboratory Tests 10/18/21 22:23 EKG EKG Sinus rhythm, rate 99, no acute ST elevation or depression, ID 210, QRS 84, QTc 470, EP interpretation. Nonischemic tracing, first-degree AV block. Radiology/Procedures Radiology/Procedures [] Course & Med Decision Making Course & Med Decision Making Labs and imaging almost entirely nonacute. Mildly low serum potassium has been addressed with oral repletion. Patient has received IV fluids, thiamine, multivitamin with folate, Zofran, a dose of lorazepam and GI cocktail/Pepcid. He feels dramatically better on serial reassessments. Reports his presenting abdominal discomfort and headache are both resolved. He is ambulatory with a narrow, steady, non-ataxic gait here in the emergency department. Given reassuring work-up and well-appearing patient in no distress with resolution of symptoms after therapy, will discharge home to follow-up closely with primary care. We discussed alcohol cessation and patient has no interest in that at this time. He understands that if he feels worse instead of better or develops other new symptoms of concern that he will need to return to the emergency department immediately for reevaluation. All questions are answered. Dragon Disclaimer Dragon Disclaimer This electronic medical record was generated, in whole or in part, using a voice recognition dictation system. Departure Departure Impression: Primary Impression: Alcohol abuse Additional Impressions: Acute hypokalemia Acute epigastric pain Disposition: HOME / SELF CARE / HOMELESS Condition: IMPROVED Referrals: ABIGAIL TINAJERO MD (PCP) Patient Instructions: Alcohol Problems Additional Instructions: Follow-up very closely with your primary care doctor in the office in the next 1 to 2 days for a reevaluation of your symptoms and to discussion of next best steps in care. Drink plenty of fluids to stay hydrated and get plenty of rest. Reduce your alcohol abuse to reduce serious risks to your health. Return to the emergency department right away for worsening symptoms of any kind or with any other new symptoms of concern. Problem Qualifiers GRACIA GUTHRIE MD Oct 19, 2021 00:56
[2021-10-19] MEDS ORDERED: POTASSIUM CHLORIDE 20 MEQ TABLET.ER. PO ONE (01:00)
[2021-10-19 01:12] VITALS: BP 134/86
--- NOTE | 2021-10-19 02:17 | EKG ---
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
== END 2021-10-19 01:34 | disposition home or self-care (01) ==
LOC: ER 22:02
DX: R10.13 Epigastric pain (principal); E87.6 Hypokalemia; F10.20 Alcohol dependence, uncomplicated; Y90.1 Blood alcohol level of 20-39 mg/100 ml; I10 Essential (primary) hypertension
CPT/HCPCS: 36415; 70450; 71045; 80053; 83690; 84484; 85025; 85610; 85730; 93005; 96361; 96365; 96375; 99285; G0480; J2060; J2405; J3411; J3490; J7030; J7060